=== PATIENT | female | born 1940 | race Caucasian/White ===

== ENCOUNTER 2020-04-17 09:51 | Inpatient (IN) ==
[2020-04-17] MEDS ORDERED: Furosemide 40 MG/4 ML VIAL IVP ONE (10:10)
[2020-04-17 10:34] LABS: Basophils # 0.1 K/mcL (0.0-0.2); Basophils % 0.6 %; Eosinophils # 0.1 K/mcL (0.0-0.6); Eosinophils % 0.8 %; Hematocrit 32.6 % (35.3-44.9); Hemoglobin 9.7 g/dL (11.5-15.4); Immature Granulocytes % 0.4 % (0-4); Lymphocytes # 2.6 K/mcL (0.6-4.6); Lymphocytes % 32.8 %; Mean Corpuscular HGB Conc 29.8 g/dL (31.6-35.5); Mean Corpuscular Hemoglobin 26.9 pg (28.0-33.3); Mean Corpuscular Volume 90.3 fL (83.0-100.0); Mean Platelet Volume 10.7 fL (9.4-12.4); Monocytes # 0.8 K/mcL (0.0-1.3); Monocytes % 9.9 %; Neutrophils # 4.3 K/mcL (1.6-8.9); Nucleated Red Blood Cells 0.3 /100 WBC (0); Platelet Count 271 K/mcL (140-400); Red Blood Count 3.61 M/mcL (3.82-4.97); Segmented Neutrophils % 55.5 %; White Blood Count 7.8 K/mcL (4.3-11.1)
[2020-04-17 10:50] LABS: BUN/Creatinine Ratio 25 (6-26); Blood Urea Nitrogen 29 mg/dL (8-23); Calcium 9.9 mg/dL (8.6-10.3); Carbon Dioxide 19 mEq/L (23-29); Chloride 101 mEq/L (98-107); Glucose 164 mg/dL (70-105); Osmolality,Calculated 283 (280-300); Sodium 132 mEq/L (136-145); eGFR For African Americans 54 (> 60); eGFR For Non-African Americans 44 (> 60)
[2020-04-17 10:51] LABS: Troponin I < 0.03 ng/mL (< 0.04)
[2020-04-17 11:19] LABS: Magnesium 1.8 mg/dL (1.6-2.6)
[2020-04-17 11:25] LABS: Adenovirus Not Detected (Not Detect); Coronavirus 229E Not Detected (Not Detect); Coronavirus HKU1 Not Detected (Not Detect); Coronavirus NL63 Not Detected (Not Detect); Coronavirus OC43 Not Detected (Not Detect); Human Metapneumovirus Not Detected (Not Detect); Human Rhinovirus/Enterovirus Not Detected (Not Detect); SARS-CoV-2 Not Detected (Not Detect)
[2020-04-17 11:26] LABS: Bordetella Pertussis Not Detected (Not Detect); Chlamydophila pneumoniae Not Detected (Not Detect); Influenza A Subtype 2009 H1 Not Detected (Not Detect); Influenza B Not Detected (Not Detect); Mycoplasma pneumoniae Not Detected (Not Detect); Parainfluenza Virus 1 Not Detected (Not Detect); Parainfluenza Virus 2 Not Detected (Not Detect); Parainfluenza Virus 3 Not Detected (Not Detect); Parainfluenza Virus 4 Not Detected (Not Detect); Respiratory Syncytial Virus Not Detected (Not Detect)
[2020-04-17] MEDS ORDERED: *HR* Dextrose 50 % in Water (Vial) 50 ML VIAL IVP PRN (11:56)
[2020-04-17] MEDS ORDERED: Naloxone 0.4 MG/ML INJ IVP PRN (11:56)
[2020-04-17] MEDS ORDERED: Dextrose Gel 15 GM/37.5 ML TUBE PO PRN ×2 (11:56)
[2020-04-17] MEDS ORDERED: D5% in Water 1,000 ML IVC PRN (11:56)
[2020-04-17] MEDS ORDERED: Perflutren Lipid Microsphere 1.3 ML in 0.9 % Sodium Chloride 8.7 ML IVP PRN (12:11)
[2020-04-17 12:45] LABS: Albumin 3.9 g/dL (3.5-5.7); Albumin/Globulin Ratio 1.1 (1.1-2.2); Bilirubin,Direct 0.2 mg/dL (0.0-0.2); Bilirubin,Indirect 0.4 mg/dL (0.0-1.0); Bilirubin,Total 0.6 mg/dL (0.3-1.0); Chol/HDL Ratio 3.9 (0-4.9); Globulin 3.5 g/dL (2.4-3.5); Total Protein 7.4 g/dL (6.4-8.9)
[2020-04-17 12:45] LABS: INR 1.1; Prothrombin Time 12.3 Seconds (9.4-12.1)
[2020-04-17 12:57] LABS: Thyroid Stimulating Hormone 1.117 mcIU/mL (0.340-5.600)
[2020-04-17] MEDS: Insulin LISPRO 300 UNITS/3 ML VIAL SQ SCH ×3 (14:15→19:23)
[2020-04-17 15:23] LABS: Estimated Average Glucose 137 mg/dl
[2020-04-17 16:43] LABS: Bacteria,Urine Few per hpf (None-Few); Bilirubin,Urine Negative (Negative); Blood,Urine Negative (Negative); Clarity,Urine Clear (Clear); Color,Urine Colorless (Yellow); Glucose,Urine (UA) Normal (Normal); Ketones,Urine Negative (Negative); Leukocyte Esterase,Urine Trace (Negative); Mucus,Urine Few per lpf (None-Few); Nitrite,Urine Negative (Negative); PH,Urine 5.5 pH Units (5.0-8.0); Protein,Urine Negative (Neg-Trace); RBC,Urine 0-3 per hpf (0-3); Specific Gravity,Urine 1.008 (1.010-1.025); Squamous Epithelial Cell,Urine Few per hpf (None-Few); Urobilinogen,Urine Normal (Normal)
[2020-04-17] MEDS: *HR* Heparin 5,000 UNIT/ML VIAL SQ SCH ×2 (16:45→19:30)
[2020-04-18 02:55] LABS: Hematocrit 28.8 % (35.3-44.9); Hemoglobin 8.7 g/dL (11.5-15.4); Mean Corpuscular HGB Conc 30.2 g/dL (31.6-35.5); Mean Corpuscular Hemoglobin 27.4 pg (28.0-33.3); Mean Corpuscular Volume 90.9 fL (83.0-100.0); Mean Platelet Volume 10.7 fL (9.4-12.4); Platelet Count 203 K/mcL (140-400); Red Blood Count 3.17 M/mcL (3.82-4.97); Red Cell Distribution Width 21.8 % (11.5-14.5); White Blood Count 6.2 K/mcL (4.3-11.1)
[2020-04-18 03:10] LABS: BUN/Creatinine Ratio 26 (6-26); Blood Urea Nitrogen 26 mg/dL (8-23); Calcium 9.3 mg/dL (8.6-10.3); Carbon Dioxide 22 mEq/L (23-29); Chloride 103 mEq/L (98-107); Glucose 97 mg/dL (70-105); Magnesium 1.6 mg/dL (1.6-2.6); Osmolality,Calculated 285 (280-300); Phosphorous 3.9 mg/dL (2.7-4.5); Potassium 4.4 mEq/L (3.5-5.1); Sodium 135 mEq/L (136-145); eGFR For African Americans > 60 (> 60); eGFR For Non-African Americans 53 (> 60)
[2020-04-18] MEDS: *HR* Heparin 5,000 UNIT/ML VIAL SQ SCH ×3 (04:58→20:43)
[2020-04-18] MEDS: Furosemide 40 MG/4 ML VIAL IVP SCH ×2 (07:32→16:29)
[2020-04-18] MEDS: Insulin LISPRO 300 UNITS/3 ML VIAL SQ SCH ×4 (07:33→20:34)
[2020-04-18] MEDS ORDERED: GI Cocktail 40 ML EACH PO ONE (15:16)
[2020-04-18] MEDS: Sucralfate 1 GM TABLET PO SCH ×2 (16:29→20:43)
[2020-04-19] MEDS ORDERED: *HR* Metoprolol 5 MG/5 ML VIAL IVP ONE (03:27)
[2020-04-19 03:50] LABS: Hematocrit 29.5 % (35.3-44.9); Mean Corpuscular HGB Conc 30.5 g/dL (31.6-35.5); Mean Corpuscular Hemoglobin 27.2 pg (28.0-33.3); Mean Corpuscular Volume 89.1 fL (83.0-100.0); Mean Platelet Volume 10.7 fL (9.4-12.4); Platelet Count 202 K/mcL (140-400); Red Blood Count 3.31 M/mcL (3.82-4.97); Red Cell Distribution Width 21.7 % (11.5-14.5)
[2020-04-19 03:56] LABS: BUN/Creatinine Ratio 21 (6-26); Blood Urea Nitrogen 17 mg/dL (8-23); Calcium 9.5 mg/dL (8.6-10.3); Carbon Dioxide 27 mEq/L (23-29); Chloride 99 mEq/L (98-107); Glucose 133 mg/dL (70-105); Magnesium 1.4 mg/dL (1.6-2.6); Osmolality,Calculated 285 (280-300); Potassium 3.9 mEq/L (3.5-5.1); Sodium 136 mEq/L (136-145); eGFR For African Americans > 60 (> 60); eGFR For Non-African Americans > 60 (> 60)
[2020-04-19] MEDS: *HR* Heparin 5,000 UNIT/ML VIAL SQ SCH ×3 (05:29→20:57)
[2020-04-19] MEDS: Sucralfate 1 GM TABLET PO SCH ×5 (08:25→20:56)
[2020-04-19] MEDS: Aspirin Enteric Coated 81 MG Tablet PO SCH (08:26)
[2020-04-19] MEDS: Cyanocobalamin (B-12) 1,000 MCG TABLET PO SCH (08:26)
[2020-04-19] MEDS: Pyridoxine (B-6) 50 MG TABLET PO SCH (08:26)
[2020-04-19] MEDS: Ascorbic Acid 500 MG TABLET PO SCH (08:26)
[2020-04-19] MEDS: Magnesium Oxide 400 MG TABLET PO SCH (08:26)
[2020-04-19] MEDS: Insulin LISPRO 300 UNITS/3 ML VIAL SQ SCH ×4 (08:26→20:53)
[2020-04-19] MEDS: atenoloL 50 MG TABLET PO SCH (08:26)
[2020-04-19] MEDS: Furosemide 40 MG/4 ML VIAL IVP SCH ×2 (08:27→16:33)
[2020-04-19] MEDS ORDERED: ATENOLOL PO SCH (09:00)
[2020-04-19] MEDS ORDERED: NON-FORMULARY MEDICATION 1 EACH EACH (Pantoprazole Sodium [Protonix] 40 MG) PO SCH (09:00)
[2020-04-19] MEDS ORDERED: [UNRECOGNIZED DRUG - OTHER] PO SCH (09:00)
[2020-04-19] MEDS ORDERED: CHLORTHALIDONE PO SCH (09:00)
[2020-04-20 01:16] LABS: Hematocrit 29.5 % (35.3-44.9); Mean Corpuscular HGB Conc 30.5 g/dL (31.6-35.5); Mean Corpuscular Volume 88.6 fL (83.0-100.0); Mean Platelet Volume 10.5 fL (9.4-12.4); Platelet Count 226 K/mcL (140-400); Red Blood Count 3.33 M/mcL (3.82-4.97); Red Cell Distribution Width 21.5 % (11.5-14.5); White Blood Count 7.4 K/mcL (4.3-11.1)
[2020-04-20 01:43] LABS: BUN/Creatinine Ratio 19 (6-26); Blood Urea Nitrogen 20 mg/dL (8-23); Calcium 9.3 mg/dL (8.6-10.3); Carbon Dioxide 25 mEq/L (23-29); Chloride 97 mEq/L (98-107); Glucose 180 mg/dL (70-105); Osmolality,Calculated 285 (280-300); Sodium 134 mEq/L (136-145); eGFR For African Americans > 60 (> 60); eGFR For Non-African Americans 51 (> 60)
[2020-04-20] MEDS: *HR* Heparin 5,000 UNIT/ML VIAL SQ SCH (05:38)
[2020-04-20] MEDS: Pyridoxine (B-6) 50 MG TABLET PO SCH (08:12)
[2020-04-20] MEDS: Aspirin Enteric Coated 81 MG Tablet PO SCH (08:12)
[2020-04-20] MEDS: Sucralfate 1 GM TABLET PO SCH ×2 (08:12→11:26)
[2020-04-20] MEDS: atenoloL 50 MG TABLET PO SCH (08:13)
[2020-04-20] MEDS: Ascorbic Acid 500 MG TABLET PO SCH (08:13)
[2020-04-20] MEDS: Furosemide 40 MG/4 ML VIAL IVP SCH (08:13)
[2020-04-20] MEDS: Cyanocobalamin (B-12) 1,000 MCG TABLET PO SCH (08:13)
[2020-04-20] MEDS: Magnesium Oxide 400 MG TABLET PO SCH (08:13)
[2020-04-20] MEDS: Insulin LISPRO 300 UNITS/3 ML VIAL SQ SCH ×2 (08:14→11:26)
[2020-04-20] MEDS ORDERED: FLU Vac QV 20-21 (6Month+)/PF 0.5 ML SYRINGE IM ONE (15:16)
[2020-04-20 15:17] VITALS: BP 124/81
== END 2020-04-20 17:31 | disposition home or self-care (01) | DRG 291 ==
LOC: EMEROOARM 09:51 → 3BNU 09:51 → SUATTDRO 11:57 → 2ANU 12:32 → SUATTDRO 04-18 15:57
PROVIDERS: ADMIT Student in an Organized Health Care Education/Training Program; ATTEND Internal Medicine

== ENCOUNTER 2020-04-26 19:14 | Inpatient (IN) ==
[~2020-04-26 19:14] MED LIST: *HR* Atropine Sulfate 1 MG/10 ML SYRINGE IV ONE; Norepinephrine 4 MG/254 ML IV.SOLN IVC ONE
[2020-04-26] MEDS ORDERED: 0.9 % Sodium Chloride 1,000 ML IVC ONE ×2 (19:41→19:50)
[2020-04-26 20:09] LABS: Eosinophils % 0.2 %; Immature Granulocytes % 0.4 % (0-4); Segmented Neutrophils % 74.5 %
[2020-04-26 20:10] LABS: Basophils % 0.1 %; Hemoglobin 9.7 g/dL (11.5-15.4); Lymphocytes % 16.8 %; Mean Corpuscular HGB Conc 29.4 g/dL (31.6-35.5); Mean Corpuscular Hemoglobin 27.3 pg (28.0-33.3); Mean Platelet Volume 10.7 fL (9.4-12.4); Monocytes # 0.9 K/mcL (0.0-1.3); Neutrophils # 8.2 K/mcL (1.6-8.9); Platelet Count 295 K/mcL (140-400); Red Blood Count 3.55 M/mcL (3.82-4.97); Red Cell Distribution Width 20.7 % (11.5-14.5)
[2020-04-26 20:13] LABS: Lymphocytes # 1.9 K/mcL (0.6-4.6)
[2020-04-26] MEDS ORDERED: Piperacillin/Tazobactam 3.375 GM in Water for inj. (sterile) 20 ML IVP ONE (20:25)
[2020-04-26] MEDS ORDERED: Vancomycin 1,500 MG/265 ML IV.SOLN IVPB ONE (20:25)
[2020-04-26 20:36] LABS: Calcium 9.6 mg/dL (8.6-10.3); Magnesium 2.5 mg/dL (1.6-2.6); Potassium 6.7 mEq/L (3.5-5.1); Troponin I 0.04 ng/mL (< 0.04)
[2020-04-26] MEDS ORDERED: Hydrocortisone Sodium Succ 100 MG/2 ML VIAL IVP ONE (20:36)
[2020-04-26] MEDS ORDERED: *HR* Dextrose 50 % in Water (Vial) 50 ML VIAL IVP ONE (20:39)
[2020-04-26] MEDS ORDERED: Insulin Human Regular 10 UNIT in 0.9 % Sodium Chloride 10 ML IV ONE (20:39)
[2020-04-26] MEDS ORDERED: Calcium Chloride 1,000 MG in 0.9 % Sodium Chloride 100 ML IVPB ONE (20:39)
[2020-04-26] MEDS ORDERED: Albuterol 2.5 MG/3 ML NEBULIZER IH ONE (20:40)
[2020-04-26 20:43] LABS: Thyroid Stimulating Hormone 0.34 mcIU/mL (0.340-5.600)
[2020-04-26] MEDS ORDERED: Calcium Gluconate 1gm/50mL 1 GM/50 ML BAG IVPB ONE ×2 (20:46→21:05)
[2020-04-26 20:49] LABS: Hypochromasia Present (Not Present); Microcytosis Present (Not Present); Ovalocytes 1+ (Not Present); Platelet Estimate Normal (Normal); Polychromasia 1+ (Not Present)
[2020-04-26 21:07] LABS: Bilirubin,Urine Negative (Negative); Blood,Urine Moderate (Negative); Clarity,Urine Turbid (Clear); Color,Urine Yellow (Yellow); Glucose,Urine (UA) Normal (Normal); Ketones,Urine Trace mg/dL (Negative); Leukocyte Esterase,Urine Large (Negative); Nitrite,Urine Negative (Negative); PH,Urine 6.5 pH Units (5.0-8.0); Protein,Urine >=300 mg/dL (Neg-Trace); Specific Gravity,Urine 1.025 (1.010-1.025); Urobilinogen,Urine Normal (Normal)
[2020-04-26 21:10] LABS: Bacteria,Urine Present per hpf (None-Few); Hyaline Casts,Urine None Seen per lpf (None Seen); Mucus,Urine Present per lpf (None-Few); RBC,Urine Present per hpf (0-3); Squamous Epithelial Cell,Urine Present per hpf (None-Few); WBC,Urine TNTC per hpf (0-3)
[2020-04-26 23:29] LABS: Sodium, Urine 89.2 mEq/L
[2020-04-26] MEDS ORDERED: Naloxone 0.4 MG/ML INJ IVP PRN (23:39)
[2020-04-27] MEDS ORDERED: 0.9 % Sodium Chloride 1,000 ML ONE (00:14)
[2020-04-27] MEDS ORDERED: *HR* Midazolam HCl 5 MG/5 ML VIAL IVP ONE ×4 (02:35→05:34)
[2020-04-27 02:39] LABS: Calcium 8.9 mg/dL (8.6-10.3); Potassium 6.4 mEq/L (3.5-5.1); Troponin I 0.03 ng/mL (< 0.04); Uric Acid 13.9 mg/dL (2.3-7.6)
[2020-04-27] MEDS: FentaNYL (PF) 1,000 MCG/100 ML IV.SOLN IVC SCH ×2 (03:08→19:15)
[2020-04-27] MEDS ORDERED: Artificial Tears SOLN 15 ML BOTTLE BOTH EYES PRN (03:38)
[2020-04-27 03:58] LABS: ABG Base Excess -13 mEq/L (-2 to 3); ABG HCO3 15 mEq/L (21-27); ABG Oxygen Saturation 97 % (95-98); ABG PCO2 47 mmHg (35-45); ABG PH 7.12 pH Units (7.32-7.45); ABG PO2 116 mmHg (85-104); ABG TCO2 17 mEq/L (20-26); Blood Gas Modality ASSIST CONTROL; Blood Gas VT 450 cc
[2020-04-27] MEDS ORDERED: Sodium Bicarbonate 150 MEQ in D5% in Water 1,000 ML IVC SCH (04:00)
[2020-04-27] MEDS: Artificial Tears SOLN 15 ML BOTTLE BOTH EYES SCH ×6 (04:30→23:07)
[2020-04-27 04:33] LABS: INR 1.1; Prothrombin Time 12.9 Seconds (9.4-12.1)
[2020-04-27 04:35] LABS: Activated Partial Thrombo Time 29.8 Seconds (26.0-36.0); Albumin 3.6 g/dL (3.5-5.7); Albumin/Globulin Ratio 1.1 (1.1-2.2); Bilirubin,Total 0.6 mg/dL (0.3-1.0); Calcium 9.4 mg/dL (8.6-10.3); Globulin 3.2 g/dL (2.4-3.5); Magnesium 2.5 mg/dL (1.6-2.6); Phosphorous 8.5 mg/dL (2.7-4.5); Potassium 6.6 mEq/L (3.5-5.1); Total Protein 6.8 g/dL (6.4-8.9)
[2020-04-27] MEDS: Sodium Bicarbonate 150 MEQ in D5% in Water 1,000 ML IVC SCH ×3 (04:44→19:17)
[2020-04-27] MEDS ORDERED: Calcium Chloride 2,000 MG in 0.9 % Sodium Chloride 100 ML IVPB ONE (04:47)
[2020-04-27] MEDS ORDERED: Calcium Chloride 1,000 MG in 0.9 % Sodium Chloride 100 ML IVPB ONE (04:47)
[2020-04-27] MEDS: Pantoprazole 40 MG VIAL IVP SCH (05:19)
[2020-04-27] MEDS ORDERED: 0.9 % Sodium Chloride 500 ML ONE (05:20)
[2020-04-27] MEDS ORDERED: *HR* Heparin 5,000 UNIT/ML VIAL ONE ×2 (05:30→14:33)
[2020-04-27 06:29] LABS: Basophils % 0.1 %; Eosinophils % 0.1 %; Hematocrit 32.8 % (35.3-44.9); Hemoglobin 9.5 g/dL (11.5-15.4); Immature Granulocytes % 0.5 % (0-4); Lymphocytes % 5.7 %; Mean Corpuscular Hemoglobin 27.4 pg (28.0-33.3); Mean Corpuscular Volume 94.5 fL (83.0-100.0); Mean Platelet Volume 11.2 fL (9.4-12.4); Monocytes # 1.4 K/mcL (0.0-1.3); Monocytes % 8.1 %; Neutrophils # 14.3 K/mcL (1.6-8.9); Platelet Count 282 K/mcL (140-400); Red Blood Count 3.47 M/mcL (3.82-4.97); Red Cell Distribution Width 20.9 % (11.5-14.5); Segmented Neutrophils % 85.5 %
[2020-04-27 06:30] LABS: White Blood Count 16.7 K/mcL (4.3-11.1)
[2020-04-27] MEDS: Norepinephrine 4 MG/254 ML IV.SOLN IVC SCH ×4 (06:38→23:43)
[2020-04-27 07:04] LABS: Potassium 6.6 mEq/L (3.5-5.1)
[2020-04-27] MEDS ORDERED: Calcium Gluconate 1gm/50mL 1 GM/50 ML BAG IVPB PRN (07:08)
[2020-04-27] MEDS: PrismaSATE BGK 4/2.5 5,000 ML CRRT SCH ×6 (08:15→19:39)
[2020-04-27] MEDS: Piperacillin/Tazobactam 3.375 GM in 0.9 % Sodium Chloride Mini Bag 100 ML IVPB SCH ×3 (08:15→23:07)
[2020-04-27] MEDS: Chlorhexidine Rinse 15 ML MOUTHWASH MM SCH ×2 (08:16→20:08)
[2020-04-27] MEDS: Calcium Chloride 4,000 MG in 0.9 % Sodium Chloride 1,000 ML CRRT SCH (08:17)
[2020-04-27 08:19] LABS: ABG Base Excess -19 mEq/L (-2 to 3); ABG HCO3 9 mEq/L (21-27); ABG Oxygen Saturation 97 % (95-98); ABG PCO2 27 mmHg (35-45); ABG PH 7.12 pH Units (7.32-7.45); ABG PO2 120 mmHg (85-104); ABG TCO2 10 mEq/L (20-26); Blood Gas Modality ASSIST CONTROL; Blood Gas VT 450 cc
[2020-04-27] MEDS: 0.9 % Sodium Chloride 1,000 ML PRIME SCH ×11 (08:19→23:06)
[2020-04-27 08:44] LABS: VBG Ionized Calcium 1.12 mmol/L (1.15-1.35)
[2020-04-27] MEDS ORDERED: Dextrose Gel 15 GM/37.5 ML TUBE PO PRN ×2 (09:41)
[2020-04-27] MEDS ORDERED: D5% in Water 1,000 ML IVC PRN (09:41)
[2020-04-27] MEDS: Insulin LISPRO 300 UNITS/3 ML VIAL SQ SCH ×2 (10:16→11:51)
[2020-04-27 11:29] LABS: VBG Ionized Calcium 1.03 mmol/L (1.15-1.35)
[2020-04-27] MEDS: Insulin Human Regular 100 UNIT in 0.9 % Sodium Chloride 100 ML IVC SCH ×2 (12:56→23:06)
[2020-04-27 13:25] LABS: VBG Ionized Calcium 0.95 mmol/L (1.15-1.35)
[2020-04-27] MEDS: Calcium Gluconate 1gm/50mL 1 GM/50 ML BAG IVPB PRN ×2 (13:34→15:49)
[2020-04-27] MEDS ORDERED: *HR* Etomidate 20 MG/10 ML AMPUL IVP ONE (14:43)
[2020-04-27 15:36] LABS: VBG Ionized Calcium 0.98 mmol/L (1.15-1.35)
[2020-04-27 15:55] LABS: Calcium 9.4 mg/dL (8.6-10.3); Magnesium 2.1 mg/dL (1.6-2.6); Phosphorous 5.8 mg/dL (2.7-4.5); Potassium 4.9 mEq/L (3.5-5.1)
[2020-04-27 17:33] LABS: VBG Ionized Calcium 1.01 mmol/L (1.15-1.35)
[2020-04-27] MEDS: *HR* Heparin 5,000 UNIT/ML VIAL SQ SCH (17:35)
[2020-04-27 19:44] LABS: VBG Ionized Calcium 1.05 mmol/L (1.15-1.35)
[2020-04-27 19:45] LABS: ABG Base Excess -9 mEq/L (-2 to 3); ABG HCO3 17 mEq/L (21-27); ABG Oxygen Saturation 95 % (95-98); ABG PCO2 35 mmHg (35-45); ABG PO2 80 mmHg (85-104); ABG TCO2 18 mEq/L (20-26); Blood Gas VT 450 cc
[2020-04-27 19:56] LABS: Calcium 9.4 mg/dL (8.6-10.3); Potassium 4.5 mEq/L (3.5-5.1)
[2020-04-27 20:27] LABS: Phosphorous 4.2 mg/dL (2.7-4.5)
[2020-04-27 21:10] LABS: VBG Ionized Calcium 1.02 mmol/L (1.15-1.35)
[2020-04-27 21:27] LABS: Calcium 9.3 mg/dL (8.6-10.3); Potassium 4.4 mEq/L (3.5-5.1)
[2020-04-27] MEDS: Vasopressin 40 UNIT in D5% in Water 100 ML IVC SCH (21:28)
[2020-04-27 21:37] LABS: Troponin I 0.25 ng/mL (< 0.04)
[2020-04-27 23:10] LABS: VBG Ionized Calcium 1.07 mmol/L (1.15-1.35)
[2020-04-28] MEDS: 0.9 % Sodium Chloride 1,000 ML PRIME SCH ×12 (00:11→22:13)
[2020-04-28] MEDS: Sodium Bicarbonate 150 MEQ in D5% in Water 1,000 ML IVC SCH ×2 (00:51→06:16)
[2020-04-28 00:55] LABS: VBG Ionized Calcium 1.05 mmol/L (1.15-1.35)
[2020-04-28] MEDS: Calcium Chloride 4,000 MG in 0.9 % Sodium Chloride 1,000 ML CRRT SCH ×3 (01:01→22:13)
[2020-04-28] MEDS: Norepinephrine 4 MG/254 ML IV.SOLN IVC SCH ×5 (02:43→20:41)
[2020-04-28 03:02] LABS: VBG Ionized Calcium 1.08 mmol/L (1.15-1.35)
[2020-04-28] MEDS: Artificial Tears SOLN 15 ML BOTTLE BOTH EYES SCH ×6 (04:09→23:58)
[2020-04-28] MEDS: PrismaSATE BGK 4/2.5 5,000 ML CRRT SCH ×10 (04:11→22:15)
[2020-04-28 04:44] LABS: ABG Base Excess 1 mEq/L (-2 to 3); ABG HCO3 26 mEq/L (21-27); ABG Oxygen Saturation 97 % (95-98); ABG PCO2 45 mmHg (35-45); ABG PH 7.37 pH Units (7.32-7.45); ABG PO2 98 mmHg (85-104); ABG TCO2 28 mEq/L (20-26); Blood Gas VT 450 cc
[2020-04-28 04:56] LABS: ABG Ionized Calcium 1.06 mmol/L (1.15-1.35)
[2020-04-28 05:06] LABS: Albumin 3.1 g/dL (3.5-5.7); Albumin/Globulin Ratio 1.2 (1.1-2.2); Bilirubin,Total 0.4 mg/dL (0.3-1.0); Calcium 9.3 mg/dL (8.6-10.3); Globulin 2.6 g/dL (2.4-3.5); Magnesium 1.7 mg/dL (1.6-2.6); Potassium 4.2 mEq/L (3.5-5.1); Total Protein 5.7 g/dL (6.4-8.9)
[2020-04-28] MEDS ORDERED: Ipratropium/Albuterol Neb 3 ML ONE (06:05)
[2020-04-28 06:07] LABS: ABG Ionized Calcium 1.02 mmol/L (1.15-1.35)
[2020-04-28] MEDS: *HR* Heparin 5,000 UNIT/ML VIAL SQ SCH ×2 (06:13→17:41)
[2020-04-28] MEDS: Pantoprazole 40 MG VIAL IVP SCH (06:14)
[2020-04-28 06:22] LABS: Basophils % 0.1 %; Eosinophils % 0.1 %; Hematocrit 27.7 % (35.3-44.9); Hemoglobin 8.6 g/dL (11.5-15.4); Immature Granulocytes % 0.7 % (0-4); Lymphocytes # 1.3 K/mcL (0.6-4.6); Lymphocytes % 8.2 %; Mean Corpuscular Volume 86.8 fL (83.0-100.0); Mean Platelet Volume 10.5 fL (9.4-12.4); Monocytes # 1.6 K/mcL (0.0-1.3); Monocytes % 10.4 %; Neutrophils # 12.3 K/mcL (1.6-8.9); Nucleated Red Blood Cells 0.1 /100 WBC (0); Platelet Count 159 K/mcL (140-400); Red Blood Count 3.19 M/mcL (3.82-4.97); Red Cell Distribution Width 19.8 % (11.5-14.5); Segmented Neutrophils % 80.5 %; White Blood Count 15.3 K/mcL (4.3-11.1)
[2020-04-28] MEDS ORDERED: Ipratropium/Albuterol Neb 3 ML IH PRN (06:29)
[2020-04-28] MEDS ORDERED: Perflutren Lipid Microsphere 1.3 ML in 0.9 % Sodium Chloride 8.7 ML IVP PRN (08:03)
[2020-04-28] MEDS: Chlorhexidine Rinse 15 ML MOUTHWASH MM SCH ×2 (08:23→20:43)
[2020-04-28] MEDS: Piperacillin/Tazobactam 3.375 GM in 0.9 % Sodium Chloride Mini Bag 100 ML IVPB SCH ×3 (08:23→23:56)
[2020-04-28 08:25] LABS: VBG Ionized Calcium 1.07 mmol/L (1.15-1.35)
[2020-04-28] MEDS: FentaNYL (PF) 1,000 MCG/100 ML IV.SOLN IVC SCH ×2 (09:16→20:39)
[2020-04-28 10:25] LABS: VBG Ionized Calcium 1.09 mmol/L (1.15-1.35)
[2020-04-28 12:20] LABS: VBG Ionized Calcium 1.14 mmol/L (1.15-1.35)
[2020-04-28] MEDS: Vasopressin 40 UNIT in D5% in Water 100 ML IVC SCH (17:46)
[2020-04-28] MEDS: Insulin Human Regular 100 UNIT in 0.9 % Sodium Chloride 100 ML IVC SCH (18:10)
[2020-04-28] MEDS ORDERED: *HR* Midazolam HCl 2 MG/2 ML VIAL IVP ONE (23:18)
[2020-04-29 00:08] LABS: VBG Ionized Calcium 1.24 mmol/L (1.15-1.35)
[2020-04-29] MEDS: Norepinephrine 4 MG/254 ML IV.SOLN IVC SCH ×6 (01:04→23:58)
[2020-04-29] MEDS: 0.9 % Sodium Chloride 1,000 ML PRIME SCH ×7 (02:34→23:10)
[2020-04-29] MEDS: PrismaSATE BGK 4/2.5 5,000 ML CRRT SCH ×10 (03:16→23:08)
[2020-04-29 04:39] LABS: Eosinophils % 0.1 %; Hematocrit 27.3 % (35.3-44.9); Immature Granulocytes % 0.6 % (0-4); Mean Corpuscular Volume 89.8 fL (83.0-100.0); Red Blood Count 3.04 M/mcL (3.82-4.97); Red Cell Distribution Width 20.7 % (11.5-14.5)
[2020-04-29 04:41] LABS: Basophils % 0.2 %; Hemoglobin 8.1 g/dL (11.5-15.4); Immature Platelets 7.5 % (1.1-6.1); Lymphocytes # 0.9 K/mcL (0.6-4.6); Lymphocytes % 5.2 %; Mean Corpuscular HGB Conc 29.7 g/dL (31.6-35.5); Mean Corpuscular Hemoglobin 26.6 pg (28.0-33.3); Mean Platelet Volume 10.7 fL (9.4-12.4); Monocytes # 1.6 K/mcL (0.0-1.3); Monocytes % 9.3 %; Neutrophils # 14.5 K/mcL (1.6-8.9); Nucleated Red Blood Cells 0.2 /100 WBC (0); Platelet Count 123 K/mcL (140-400); Segmented Neutrophils % 84.6 %; White Blood Count 17.1 K/mcL (4.3-11.1)
[2020-04-29 04:55] LABS: Albumin 2.9 g/dL (3.5-5.7); Albumin/Globulin Ratio 1.1 (1.1-2.2); Bilirubin,Total 0.5 mg/dL (0.3-1.0); Calcium 10.8 mg/dL (8.6-10.3); Globulin 2.7 g/dL (2.4-3.5); Potassium 3.9 mEq/L (3.5-5.1); Total Protein 5.6 g/dL (6.4-8.9)
[2020-04-29] MEDS: Artificial Tears SOLN 15 ML BOTTLE BOTH EYES SCH ×5 (05:00→20:39)
[2020-04-29] MEDS: FentaNYL (PF) 1,000 MCG/100 ML IV.SOLN IVC SCH ×2 (05:10→15:30)
[2020-04-29 05:13] LABS: ABG Base Excess 2 mEq/L (-2 to 3); ABG HCO3 30 mEq/L (21-27); ABG Oxygen Saturation 88 % (95-98); ABG PCO2 63 mmHg (35-45); ABG PH 7.28 pH Units (7.32-7.45); ABG PO2 64 mmHg (85-104); ABG TCO2 32 mEq/L (20-26); Blood Gas VT 450 cc
[2020-04-29 05:20] LABS: Anisocytosis 2+ (Not Present); Macrocytosis Present (Not Present); Microcytosis Present (Not Present); Platelet Estimate Normal (Normal)
[2020-04-29] MEDS: Calcium Chloride 4,000 MG in 0.9 % Sodium Chloride 1,000 ML CRRT SCH ×3 (05:54→22:25)
[2020-04-29] MEDS: *HR* Heparin 5,000 UNIT/ML VIAL SQ SCH ×2 (05:56→17:35)
[2020-04-29] MEDS: Pantoprazole 40 MG VIAL IVP SCH (05:56)
[2020-04-29 06:01] LABS: Magnesium 1.9 mg/dL (1.6-2.6)
[2020-04-29 06:08] LABS: VBG Ionized Calcium 1.31 mmol/L (1.15-1.35)
[2020-04-29] MEDS ORDERED: *HR* Dextrose 50 % in Water (Vial) 50 ML VIAL IVP PRN (07:29)
[2020-04-29] MEDS ORDERED: Dextrose Gel 15 GM/37.5 ML TUBE PO PRN ×2 (07:29)
[2020-04-29] MEDS ORDERED: D5% in Water 1,000 ML IVC PRN (07:29)
[2020-04-29] MEDS: Piperacillin/Tazobactam 3.375 GM in 0.9 % Sodium Chloride Mini Bag 100 ML IVPB SCH (07:47)
[2020-04-29] MEDS: Chlorhexidine Rinse 15 ML MOUTHWASH MM SCH ×2 (07:50→20:39)
[2020-04-29] MEDS ORDERED: Insulin LISPRO 300 UNITS/3 ML VIAL SQ SCH (12:00)
[2020-04-29 12:39] LABS: VBG Ionized Calcium 1.34 mmol/L (1.15-1.35)
[2020-04-29 12:52] LABS: Calcium 10.8 mg/dL (8.6-10.3); Magnesium 2.1 mg/dL (1.6-2.6); Phosphorous 1.8 mg/dL (2.7-4.5); Potassium 3.9 mEq/L (3.5-5.1)
[2020-04-29 14:33] LABS: VBG Ionized Calcium 1.35 mmol/L (1.15-1.35)
[2020-04-29 16:30] LABS: VBG Ionized Calcium 1.41 mmol/L (1.15-1.35)
[2020-04-29] MEDS: Vasopressin 40 UNIT in D5% in Water 100 ML IVC SCH (17:23)
[2020-04-29 18:10] LABS: VBG Ionized Calcium 1.36 mmol/L (1.15-1.35)
[2020-04-29] MEDS: *HR* Dextrose 50 % in Water (Vial) 50 ML VIAL IVP PRN ×2 (19:15→20:40)
[2020-04-29 20:14] LABS: VBG Ionized Calcium 1.35 mmol/L (1.15-1.35)
[2020-04-29 22:18] LABS: VBG Ionized Calcium 1.33 mmol/L (1.15-1.35)
[2020-04-30] MEDS: Artificial Tears SOLN 15 ML BOTTLE BOTH EYES SCH ×7 (01:21→23:56)
[2020-04-30] MEDS: FentaNYL (PF) 1,000 MCG/100 ML IV.SOLN IVC SCH ×3 (02:18→20:36)
[2020-04-30 03:29] LABS: Basophils % 0.2 %; Hematocrit 24.9 % (35.3-44.9); Mean Corpuscular Volume 88.3 fL (83.0-100.0); Monocytes % 9.3 %; Red Blood Count 2.82 M/mcL (3.82-4.97); Red Cell Distribution Width 20.6 % (11.5-14.5)
[2020-04-30 03:31] LABS: Eosinophils # 0.1 K/mcL (0.0-0.6); Eosinophils % 0.5 %; Hemoglobin 7.5 g/dL (11.5-15.4); Immature Granulocytes % 0.8 % (0-4); Lymphocytes % 9.6 %; Mean Corpuscular HGB Conc 30.1 g/dL (31.6-35.5); Mean Corpuscular Hemoglobin 26.6 pg (28.0-33.3); Mean Platelet Volume 11.1 fL (9.4-12.4); Monocytes # 1.2 K/mcL (0.0-1.3); Segmented Neutrophils % 79.6 %
[2020-04-30 03:33] LABS: Lymphocytes # 1.3 K/mcL (0.6-4.6); Neutrophils # 10.4 K/mcL (1.6-8.9); Platelet Count 96 K/mcL (140-400)
[2020-04-30 03:46] LABS: Alanine Aminotransferase 21 Units/L (7-52); Albumin 2.5 g/dL (3.5-5.7); Alkaline Phosphatase 90 Units/L (34-104); Aspartate Amino Transferase 37 Units/L (13-39); BUN/Creatinine Ratio 8 (6-26); Bilirubin,Total 0.8 mg/dL (0.3-1.0); Blood Urea Nitrogen 8 mg/dL (8-23); Calcium 10.7 mg/dL (8.6-10.3); Carbon Dioxide 29 mEq/L (23-29); Chloride 103 mEq/L (98-107); Globulin 2.4 g/dL (2.4-3.5); Glucose 140 mg/dL (70-105); Magnesium 1.8 mg/dL (1.6-2.6); Osmolality,Calculated 283 (280-300); Phosphorous 1.4 mg/dL (2.7-4.5); Potassium 3.7 mEq/L (3.5-5.1); Sodium 136 mEq/L (136-145); Total Protein 4.9 g/dL (6.4-8.9); eGFR For African Americans > 60 (> 60); eGFR For Non-African Americans 51 (> 60)
[2020-04-30] MEDS: Norepinephrine 4 MG/254 ML IV.SOLN IVC SCH ×4 (04:18→20:35)
[2020-04-30] MEDS: PrismaSATE BGK 4/2.5 5,000 ML CRRT SCH ×8 (04:19→20:56)
[2020-04-30 04:47] LABS: ABG Base Excess 3 mEq/L (-2 to 3); ABG HCO3 29 mEq/L (21-27); ABG Oxygen Saturation 98 % (95-98); ABG PCO2 49 mmHg (35-45); ABG PH 7.37 pH Units (7.32-7.45); ABG PO2 103 mmHg (85-104); ABG TCO2 30 mEq/L (20-26); Blood Gas Modality ASSIST CONTROL; Blood Gas VT 480 cc
[2020-04-30] MEDS: *HR* Heparin 5,000 UNIT/ML VIAL SQ SCH ×2 (05:16→17:48)
[2020-04-30] MEDS: Pantoprazole 40 MG VIAL IVP SCH (05:16)
[2020-04-30] MEDS: Potassium Phosphate 44 MEQ in 0.9 % Sodium Chloride 250 ML IVPB PRN (06:14)
[2020-04-30] MEDS: Calcium Chloride 4,000 MG in 0.9 % Sodium Chloride 1,000 ML CRRT SCH ×2 (07:09→17:00)
[2020-04-30] MEDS: cefTRIAXone 1,000 MG in Water for inj. (sterile) 10 ML IVP SCH (07:38)
[2020-04-30] MEDS: Chlorhexidine Rinse 15 ML MOUTHWASH MM SCH ×2 (07:38→20:31)
[2020-04-30] MEDS: Bacitracin/PolymyxinB OINT 14.17 GM TUBE TP SCH ×2 (12:53→20:31)
[2020-04-30] MEDS: Insulin Human Regular 100 UNIT in 0.9 % Sodium Chloride 100 ML IVC SCH (16:13)
[2020-04-30] MEDS: Vasopressin 40 UNIT in D5% in Water 100 ML IVC SCH (16:13)
[2020-04-30 16:54] LABS: VBG Ionized Calcium 1.33 mmol/L (1.15-1.35)
[2020-04-30 17:13] LABS: Albumin 2.6 g/dL (3.5-5.7); Bilirubin,Direct 0.4 mg/dL (0.0-0.2); Bilirubin,Indirect 0.4 mg/dL (0.0-1.0); Bilirubin,Total 0.8 mg/dL (0.3-1.0); Globulin 2.5 g/dL (2.4-3.5); Total Protein 5.1 g/dL (6.4-8.9)
[2020-04-30] MEDS ORDERED: *HR* LORazepam 2 MG/ML VIAL IVP PRN (17:33)
[2020-04-30] MEDS ORDERED: Dextrose Gel 15 GM/37.5 ML TUBE PO PRN ×2 (17:34)
[2020-04-30] MEDS ORDERED: *HR* Dextrose 50 % in Water (Vial) 50 ML VIAL IVP PRN (17:34)
[2020-04-30] MEDS ORDERED: D5% in Water 1,000 ML IVC PRN (17:34)
[2020-04-30 17:52] LABS: Phosphorous 2.1 mg/dL (2.7-4.5); Potassium 3.6 mEq/L (3.5-5.1)
[2020-04-30] MEDS ORDERED: Potassium Chloride Elixir 20 MEQ/15 ML UDC GTUBE ONE (18:14)
[2020-04-30] MEDS ORDERED: 0.9 % Sodium Chloride 2,000 ML ONE (18:57)
[2020-04-30] MEDS ORDERED: *HR* Heparin 5,000 UNIT/ML VIAL ONE (19:11)
[2020-04-30] MEDS ORDERED: 0.9 % Sodium Chloride 1,000 ML ONE (19:28)
[2020-04-30] MEDS: QUEtiapine Fumarate 25 MG TABLET PO SCH (20:31)
[2020-04-30] MEDS: Insulin LISPRO 300 UNITS/3 ML VIAL SQ SCH ×2 (20:34→23:57)
[2020-04-30] MEDS: Sodium Bicarbonate 150 MEQ in D5% in Water 1,000 ML IVC SCH (23:56)
[2020-05-01 00:11] LABS: VBG Ionized Calcium 1.37 mmol/L (1.15-1.35)
[2020-05-01] MEDS: PrismaSATE BGK 4/2.5 5,000 ML CRRT SCH ×8 (02:00→20:36)
[2020-05-01] MEDS: Norepinephrine 4 MG/254 ML IV.SOLN IVC SCH ×5 (02:16→20:35)
[2020-05-01 02:49] LABS: VBG Ionized Calcium 1.33 mmol/L (1.15-1.35)
[2020-05-01] MEDS: Calcium Chloride 4,000 MG in 0.9 % Sodium Chloride 1,000 ML CRRT SCH ×2 (03:46→13:38)
[2020-05-01] MEDS: Artificial Tears SOLN 15 ML BOTTLE BOTH EYES SCH ×5 (04:07→20:30)
[2020-05-01 04:24] LABS: VBG Ionized Calcium 1.31 mmol/L (1.15-1.35)
[2020-05-01 04:30] LABS: Basophils % 0.2 %; Hemoglobin 7.5 g/dL (11.5-15.4); Lymphocytes % 13.8 %; Nucleated Red Blood Cells 0.2 /100 WBC (0)
[2020-05-01 04:32] LABS: Eosinophils # 0.2 K/mcL (0.0-0.6); Eosinophils % 1.3 %; Hematocrit 24.6 % (35.3-44.9); Immature Granulocytes % 0.5 % (0-4); Immature Platelets 7.8 % (1.1-6.1); Lymphocytes # 1.8 K/mcL (0.6-4.6); Mean Corpuscular HGB Conc 30.5 g/dL (31.6-35.5); Mean Corpuscular Hemoglobin 27.3 pg (28.0-33.3); Mean Corpuscular Volume 89.5 fL (83.0-100.0); Mean Platelet Volume 11.5 fL (9.4-12.4); Monocytes # 1.3 K/mcL (0.0-1.3); Monocytes % 9.6 %; Neutrophils # 9.9 K/mcL (1.6-8.9); Red Blood Count 2.75 M/mcL (3.82-4.97); Red Cell Distribution Width 20.6 % (11.5-14.5); Segmented Neutrophils % 74.6 %; White Blood Count 13.2 K/mcL (4.3-11.1)
[2020-05-01 04:39] LABS: BUN/Creatinine Ratio 6 (6-26); Blood Urea Nitrogen 5 mg/dL (8-23); Calcium 10.5 mg/dL (8.6-10.3); Carbon Dioxide 29 mEq/L (23-29); Chloride 106 mEq/L (98-107); Glucose 149 mg/dL (70-105); Magnesium 1.9 mg/dL (1.6-2.6); Osmolality,Calculated 288 (280-300); Phosphorous 2.2 mg/dL (2.7-4.5); Potassium 3.9 mEq/L (3.5-5.1); Sodium 139 mEq/L (136-145); eGFR For African Americans > 60 (> 60); eGFR For Non-African Americans > 60 (> 60)
[2020-05-01 04:41] LABS: Platelet Count 85 K/mcL (140-400)
[2020-05-01] MEDS: Insulin LISPRO 300 UNITS/3 ML VIAL SQ SCH ×5 (05:09→20:31)
[2020-05-01] MEDS: *HR* Heparin 5,000 UNIT/ML VIAL SQ SCH ×2 (05:12→18:11)
[2020-05-01] MEDS: Pantoprazole 40 MG VIAL IVP SCH (05:13)
[2020-05-01] MEDS ORDERED: Potassium Chloride Elixir 20 MEQ/15 ML UDC GTUBE ONE (05:15)
[2020-05-01 05:25] LABS: ABG Base Excess 4 mEq/L (-2 to 3); ABG HCO3 31 mEq/L (21-27); ABG Oxygen Saturation 99 % (95-98); ABG PCO2 59 mmHg (35-45); ABG PH 7.32 pH Units (7.32-7.45); ABG PO2 129 mmHg (85-104); ABG TCO2 32 mEq/L (20-26); Blood Gas Modality ASSIST CONTROL; Blood Gas VT 480 cc
[2020-05-01] MEDS: FentaNYL (PF) 1,000 MCG/100 ML IV.SOLN IVC SCH ×2 (06:09→14:36)
[2020-05-01 06:22] LABS: VBG Ionized Calcium 1.32 mmol/L (1.15-1.35)
[2020-05-01] MEDS: Chlorhexidine Rinse 15 ML MOUTHWASH MM SCH ×2 (07:36→20:30)
[2020-05-01] MEDS: Bacitracin/PolymyxinB OINT 14.17 GM TUBE TP SCH ×2 (07:37→20:31)
[2020-05-01] MEDS: cefTRIAXone 1,000 MG in Water for inj. (sterile) 10 ML IVP SCH (07:37)
[2020-05-01 09:01] LABS: INR 1.2; Prothrombin Time 13.6 Seconds (9.4-12.1)
[2020-05-01 12:34] LABS: Magnesium 2.1 mg/dL (1.6-2.6); Phosphorous 2.3 mg/dL (2.7-4.5); Potassium 4.3 mEq/L (3.5-5.1)
[2020-05-01] MEDS: Vasopressin 40 UNIT in D5% in Water 100 ML IVC SCH (16:33)
[2020-05-01 18:28] LABS: VBG Ionized Calcium 1.31 mmol/L (1.15-1.35)
[2020-05-01] MEDS: QUEtiapine Fumarate 25 MG TABLET PO SCH (20:31)
[2020-05-02] MEDS: Calcium Chloride 4,000 MG in 0.9 % Sodium Chloride 1,000 ML CRRT SCH ×3 (00:07→21:35)
[2020-05-02] MEDS: Artificial Tears SOLN 15 ML BOTTLE BOTH EYES SCH ×7 (00:21→23:20)
[2020-05-02] MEDS: Insulin LISPRO 300 UNITS/3 ML VIAL SQ SCH ×7 (00:21→23:52)
[2020-05-02 00:43] LABS: VBG Ionized Calcium 1.23 mmol/L (1.15-1.35)
[2020-05-02] MEDS: FentaNYL (PF) 1,000 MCG/100 ML IV.SOLN IVC SCH (01:07)
[2020-05-02] MEDS: Norepinephrine 4 MG/254 ML IV.SOLN IVC SCH ×3 (01:07→16:00)
[2020-05-02] MEDS: PrismaSATE BGK 4/2.5 5,000 ML CRRT SCH ×10 (01:08→21:59)
[2020-05-02 04:09] LABS: Hemoglobin 7.6 g/dL (11.5-15.4)
[2020-05-02 04:12] LABS: Basophils % 0.3 %; Eosinophils # 0.1 K/mcL (0.0-0.6); Eosinophils % 1.4 %; Hematocrit 25.4 % (35.3-44.9); Immature Granulocytes % 0.5 % (0-4); Immature Platelets 6.7 % (1.1-6.1); Lymphocytes # 1.2 K/mcL (0.6-4.6); Lymphocytes % 12.3 %; Mean Corpuscular HGB Conc 29.9 g/dL (31.6-35.5); Mean Corpuscular Volume 90.1 fL (83.0-100.0); Mean Platelet Volume 11.2 fL (9.4-12.4); Monocytes # 1.1 K/mcL (0.0-1.3); Monocytes % 11.8 %; Platelet Count 70 K/mcL (140-400); Red Blood Count 2.82 M/mcL (3.82-4.97); Red Cell Distribution Width 20.9 % (11.5-14.5); Segmented Neutrophils % 73.7 %; White Blood Count 9.5 K/mcL (4.3-11.1)
[2020-05-02 04:28] LABS: BUN/Creatinine Ratio 6 (6-26); Blood Urea Nitrogen 4 mg/dL (8-23); Calcium 10.6 mg/dL (8.6-10.3); Carbon Dioxide 30 mEq/L (23-29); Chloride 106 mEq/L (98-107); Glucose 151 mg/dL (70-105); Magnesium 1.7 mg/dL (1.6-2.6); Osmolality,Calculated 290 (280-300); Phosphorous 2.5 mg/dL (2.7-4.5); Potassium 4.2 mEq/L (3.5-5.1); Sodium 140 mEq/L (136-145); eGFR For African Americans > 60 (> 60); eGFR For Non-African Americans > 60 (> 60)
[2020-05-02 04:35] LABS: ABG Base Excess 5 mEq/L (-2 to 3); ABG HCO3 31 mEq/L (21-27); ABG Oxygen Saturation 98 % (95-98); ABG PCO2 53 mmHg (35-45); ABG PH 7.38 pH Units (7.32-7.45); ABG PO2 108 mmHg (85-104); ABG TCO2 33 mEq/L (20-26); Blood Gas VT 480 cc
[2020-05-02] MEDS: Pantoprazole 40 MG VIAL IVP SCH (05:09)
[2020-05-02 06:10] LABS: VBG Ionized Calcium 1.22 mmol/L (1.15-1.35)
[2020-05-02] MEDS: cefTRIAXone 1,000 MG in Water for inj. (sterile) 10 ML IVP SCH (07:37)
[2020-05-02] MEDS: Chlorhexidine Rinse 15 ML MOUTHWASH MM SCH ×2 (07:37→19:57)
[2020-05-02] MEDS: Bacitracin/PolymyxinB OINT 14.17 GM TUBE TP SCH ×2 (07:38→19:59)
[2020-05-02 12:23] LABS: VBG Ionized Calcium 1.32 mmol/L (1.15-1.35)
[2020-05-02] MEDS: Vasopressin 40 UNIT in D5% in Water 100 ML IVC SCH (12:27)
[2020-05-02 12:31] LABS: Phosphorous 2.4 mg/dL (2.7-4.5)
[2020-05-02] MEDS: Potassium Phosphate 44 MEQ in 0.9 % Sodium Chloride 250 ML IVPB PRN (13:52)
[2020-05-02] MEDS ORDERED: 0.9 % Sodium Chloride 2,000 ML ONE ×2 (15:10→20:49)
[2020-05-02 18:15] LABS: VBG Ionized Calcium 1.34 mmol/L (1.15-1.35)
[2020-05-02] MEDS: QUEtiapine Fumarate 25 MG TABLET PO SCH (19:57)
[2020-05-02] MEDS ORDERED: *HR* Heparin 5,000 UNIT/ML VIAL ONE (20:38)
[2020-05-02] MEDS: *HR* Heparin 5,000 UNIT/ML VIAL HE PRN (21:59)
[2020-05-02] MEDS: 0.9 % Sodium Chloride 1,000 ML PRIME SCH (22:00)
[2020-05-03 00:05] LABS: VBG Ionized Calcium 1.32 mmol/L (1.15-1.35)
[2020-05-03] MEDS: Artificial Tears SOLN 15 ML BOTTLE BOTH EYES SCH ×5 (03:43→20:19)
[2020-05-03] MEDS: Insulin LISPRO 300 UNITS/3 ML VIAL SQ SCH ×5 (04:20→21:05)
[2020-05-03 04:47] LABS: BUN/Creatinine Ratio 5 (6-26); Blood Urea Nitrogen 3 mg/dL (8-23); Calcium 10.2 mg/dL (8.6-10.3); Carbon Dioxide 32 mEq/L (23-29); Chloride 103 mEq/L (98-107); Glucose 156 mg/dL (70-105); Magnesium 1.8 mg/dL (1.6-2.6); Osmolality,Calculated 294 (280-300); Sodium 142 mEq/L (136-145); eGFR For African Americans > 60 (> 60); eGFR For Non-African Americans > 60 (> 60)
[2020-05-03 04:53] LABS: Basophils % 0.3 %; Red Blood Count 2.64 M/mcL (3.82-4.97)
[2020-05-03 04:55] LABS: Eosinophils # 0.1 K/mcL (0.0-0.6); Hemoglobin 7.1 g/dL (11.5-15.4); Immature Granulocytes % 1.2 % (0-4); Immature Platelets 9.4 % (1.1-6.1); Lymphocytes # 1.3 K/mcL (0.6-4.6); Lymphocytes % 21.5 %; Mean Corpuscular HGB Conc 29.6 g/dL (31.6-35.5); Mean Corpuscular Hemoglobin 26.9 pg (28.0-33.3); Mean Corpuscular Volume 90.9 fL (83.0-100.0); Mean Platelet Volume 11.1 fL (9.4-12.4); Monocytes # 0.8 K/mcL (0.0-1.3); Monocytes % 13.3 %; Nucleated Red Blood Cells 0.3 /100 WBC (0); Segmented Neutrophils % 61.7 %; White Blood Count 5.9 K/mcL (4.3-11.1)
[2020-05-03 04:56] LABS: Neutrophils # 3.6 K/mcL (1.6-8.9); Platelet Count 49 K/mcL (140-400)
[2020-05-03] MEDS: Pantoprazole 40 MG VIAL IVP SCH (06:01)
[2020-05-03] MEDS: PrismaSATE BGK 4/2.5 5,000 ML CRRT SCH ×8 (06:03→23:12)
[2020-05-03 06:12] LABS: VBG Ionized Calcium 1.21 mmol/L (1.15-1.35)
[2020-05-03] MEDS: cefTRIAXone 1,000 MG in Water for inj. (sterile) 10 ML IVP SCH (07:36)
[2020-05-03] MEDS: Chlorhexidine Rinse 15 ML MOUTHWASH MM SCH ×2 (07:36→20:19)
[2020-05-03] MEDS: Bacitracin/PolymyxinB OINT 14.17 GM TUBE TP SCH ×2 (07:37→20:20)
[2020-05-03] MEDS: Vasopressin 40 UNIT in D5% in Water 100 ML IVC SCH (07:47)
[2020-05-03] MEDS: Calcium Chloride 4,000 MG in 0.9 % Sodium Chloride 1,000 ML CRRT SCH ×2 (09:18→21:00)
[2020-05-03 12:19] LABS: VBG Ionized Calcium 1.28 mmol/L (1.15-1.35)
[2020-05-03] MEDS: Aspirin Enteric Coated 81 MG Tablet PO SCH (15:30)
[2020-05-03] MEDS: Cyanocobalamin (B-12) 1,000 MCG TABLET PO SCH (16:35)
[2020-05-03] MEDS: Ascorbic Acid 500 MG TABLET PO SCH (16:35)
[2020-05-03] MEDS: Gabapentin 300 MG CAPSULE PO SCH ×2 (16:35→20:19)
[2020-05-03] MEDS: *HR* Heparin 5,000 UNIT/ML VIAL SQ SCH (16:36)
[2020-05-03 18:26] LABS: VBG Ionized Calcium 1.25 mmol/L (1.15-1.35)
[2020-05-03] MEDS: QUEtiapine Fumarate 25 MG TABLET PO SCH (20:19)
[2020-05-04] MEDS: Artificial Tears SOLN 15 ML BOTTLE BOTH EYES SCH ×6 (00:21→20:12)
[2020-05-04 00:26] LABS: VBG Ionized Calcium 1.28 mmol/L (1.15-1.35)
[2020-05-04 03:25] LABS: VBG Ionized Calcium 1.28 mmol/L (1.15-1.35)
[2020-05-04 03:29] LABS: Basophils % 0.4 %; Eosinophils # 0.2 K/mcL (0.0-0.6); Eosinophils % 3.4 %; Hematocrit 22.1 % (35.3-44.9); Hemoglobin 6.6 g/dL (11.5-15.4); Immature Granulocytes % 1.6 % (0-4); Lymphocytes # 1.3 K/mcL (0.6-4.6); Lymphocytes % 24.7 %; Mean Corpuscular HGB Conc 29.9 g/dL (31.6-35.5); Mean Corpuscular Hemoglobin 27.2 pg (28.0-33.3); Mean Corpuscular Volume 90.9 fL (83.0-100.0); Mean Platelet Volume 12.3 fL (9.4-12.4); Monocytes # 0.6 K/mcL (0.0-1.3); Monocytes % 11.9 %; Nucleated Red Blood Cells 0.6 /100 WBC (0); Red Blood Count 2.43 M/mcL (3.82-4.97); White Blood Count 5.1 K/mcL (4.3-11.1)
[2020-05-04 03:30] LABS: Platelet Count 49 K/mcL (140-400)
[2020-05-04 03:39] LABS: BUN/Creatinine Ratio 6 (6-26); Blood Urea Nitrogen 3 mg/dL (8-23); Calcium 10.1 mg/dL (8.6-10.3); Carbon Dioxide 33 mEq/L (23-29); Chloride 104 mEq/L (98-107); Glucose 137 mg/dL (70-105); Magnesium 1.8 mg/dL (1.6-2.6); Osmolality,Calculated 289 (280-300); Potassium 3.7 mEq/L (3.5-5.1); Sodium 140 mEq/L (136-145); eGFR For African Americans > 60 (> 60); eGFR For Non-African Americans > 60 (> 60)
[2020-05-04] MEDS: PrismaSATE BGK 4/2.5 5,000 ML CRRT SCH ×4 (05:38→12:16)
[2020-05-04] MEDS: *HR* Heparin 5,000 UNIT/ML VIAL SQ SCH (05:46)
[2020-05-04] MEDS: Pantoprazole 40 MG VIAL IVP SCH (05:46)
[2020-05-04] MEDS: Calcium Chloride 4,000 MG in 0.9 % Sodium Chloride 1,000 ML CRRT SCH (08:10)
[2020-05-04] MEDS: Chlorhexidine Rinse 15 ML MOUTHWASH MM SCH ×2 (08:28→20:11)
[2020-05-04] MEDS: Insulin LISPRO 300 UNITS/3 ML VIAL SQ SCH ×4 (08:30→20:44)
[2020-05-04] MEDS ORDERED: 0.9 % Sodium Chloride 250 ML IVC SCH (08:30)
[2020-05-04] MEDS: Cyanocobalamin (B-12) 1,000 MCG TABLET PO SCH (08:40)
[2020-05-04] MEDS: Ascorbic Acid 500 MG TABLET PO SCH (08:40)
[2020-05-04] MEDS: Aspirin Enteric Coated 81 MG Tablet PO SCH (08:40)
[2020-05-04] MEDS: Bacitracin/PolymyxinB OINT 14.17 GM TUBE TP SCH ×2 (08:41→20:12)
[2020-05-04] MEDS: Gabapentin 300 MG CAPSULE PO SCH ×3 (08:41→20:11)
[2020-05-04] MEDS: cefTRIAXone 1,000 MG in Water for inj. (sterile) 10 ML IVP SCH (08:41)
[2020-05-04 08:47] LABS: VBG Ionized Calcium 1.19 mmol/L (1.15-1.35)
[2020-05-04 14:46] LABS: Hemoglobin 8.2 g/dL (11.5-15.4)
[2020-05-04 14:55] LABS: VBG Ionized Calcium 1.25 mmol/L (1.15-1.35)
[2020-05-04] MEDS ORDERED: *HR* Heparin 5,000 UNIT/ML VIAL ONE (17:04)
[2020-05-04] MEDS: *HR* Heparin 5,000 UNIT/ML VIAL HE PRN (17:32)
[2020-05-04] MEDS ORDERED: Ondansetron 4 MG/2 ML VIAL IVP PRN (17:44)
[2020-05-04] MEDS: QUEtiapine Fumarate 25 MG TABLET PO SCH (20:11)
[2020-05-05] MEDS: Artificial Tears SOLN 15 ML BOTTLE BOTH EYES SCH ×2 (03:46→08:09)
[2020-05-05] MEDS: Norepinephrine 4 MG/254 ML IV.SOLN IVC SCH (03:46)
[2020-05-05 04:27] LABS: Basophils % 0.4 %; Hematocrit 26.2 % (35.3-44.9); Mean Corpuscular Volume 89.7 fL (83.0-100.0); Red Blood Count 2.92 M/mcL (3.82-4.97)
[2020-05-05 04:29] LABS: Eosinophils # 0.1 K/mcL (0.0-0.6); Eosinophils % 1.3 %; Hemoglobin 8.2 g/dL (11.5-15.4); Immature Granulocytes % 2.4 % (0-4); Immature Platelets 9.9 % (1.1-6.1); Lymphocytes # 2.9 K/mcL (0.6-4.6); Lymphocytes % 29.5 %; Mean Corpuscular HGB Conc 31.3 g/dL (31.6-35.5); Mean Corpuscular Hemoglobin 28.1 pg (28.0-33.3); Mean Platelet Volume 11.3 fL (9.4-12.4); Monocytes # 1.3 K/mcL (0.0-1.3); Monocytes % 12.9 %; Neutrophils # 5.2 K/mcL (1.6-8.9); Nucleated Red Blood Cells 1.9 /100 WBC (0); Segmented Neutrophils % 53.5 %; White Blood Count 9.8 K/mcL (4.3-11.1)
[2020-05-05 04:29] LABS: VBG Ionized Calcium 1.51 mmol/L (1.15-1.35)
[2020-05-05 04:30] LABS: Platelet Count 68 K/mcL (140-400)
[2020-05-05 04:45] LABS: BUN/Creatinine Ratio 6 (6-26); Blood Urea Nitrogen 6 mg/dL (8-23); Calcium 10.5 mg/dL (8.6-10.3); Carbon Dioxide 36 mEq/L (23-29); Chloride 101 mEq/L (98-107); Glucose 127 mg/dL (70-105); Magnesium 1.8 mg/dL (1.6-2.6); Osmolality,Calculated 285 (280-300); Phosphorous 3.5 mg/dL (2.7-4.5); Potassium 4.5 mEq/L (3.5-5.1); Sodium 138 mEq/L (136-145); eGFR For African Americans > 60 (> 60); eGFR For Non-African Americans 52 (> 60)
[2020-05-05] MEDS: Pantoprazole 40 MG VIAL IVP SCH (05:50)
[2020-05-05] MEDS: Gabapentin 300 MG CAPSULE PO SCH ×3 (08:08→22:14)
[2020-05-05] MEDS: Chlorhexidine Rinse 15 ML MOUTHWASH MM SCH (08:08)
[2020-05-05] MEDS: Cyanocobalamin (B-12) 1,000 MCG TABLET PO SCH (08:08)
[2020-05-05] MEDS: Ascorbic Acid 500 MG TABLET PO SCH (08:08)
[2020-05-05] MEDS: Aspirin Enteric Coated 81 MG Tablet PO SCH (08:09)
[2020-05-05] MEDS: Bacitracin/PolymyxinB OINT 14.17 GM TUBE TP SCH (08:10)
[2020-05-05] MEDS: Insulin LISPRO 300 UNITS/3 ML VIAL SQ SCH ×4 (08:17→22:16)
[2020-05-05] MEDS ORDERED: *HR* Heparin 10,000 UNIT/10 ML VIAL IV PRN (09:05)
[2020-05-05] MEDS ORDERED: 0.9 % Sodium Chloride 250 ML IVC PRN ×2 (09:05→17:46)
[2020-05-05] MEDS ORDERED: 0.9 % Sodium Chloride 1,000 ML PRIME SCH ×2 (09:15→18:00)
[2020-05-05] MEDS ORDERED: Ipratropium/Albuterol Neb 3 ML IH PRN (10:22)
[2020-05-05] MEDS ORDERED: Artificial Tears SOLN 15 ML BOTTLE BOTH EYES PRN (10:22)
[2020-05-05 12:54] LABS: Hepatitis B Surface Antigen Nonreactive (Nonreactive)
[2020-05-05] MEDS: *HR* Heparin 5,000 UNIT/ML VIAL SQ SCH ×2 (16:26→22:15)
[2020-05-06] MEDS ORDERED: *HR* Heparin 10,000 UNIT/10 ML VIAL IV PRN (00:01)
[2020-05-06] MEDS: QUEtiapine Fumarate 25 MG TABLET PO SCH ×2 (00:16→21:55)
[2020-05-06] MEDS: Bacitracin/PolymyxinB OINT 14.17 GM TUBE TP SCH ×2 (00:16→07:57)
[2020-05-06] MEDS: *HR* Heparin 5,000 UNIT/ML VIAL SQ SCH ×2 (05:40→14:20)
[2020-05-06] MEDS: Aspirin Enteric Coated 81 MG Tablet PO SCH (07:55)
[2020-05-06] MEDS: Ascorbic Acid 500 MG TABLET PO SCH (07:55)
[2020-05-06] MEDS: Gabapentin 300 MG CAPSULE PO SCH ×3 (07:55→21:56)
[2020-05-06] MEDS: Insulin LISPRO 300 UNITS/3 ML VIAL SQ SCH ×4 (07:56→21:56)
[2020-05-06] MEDS: Cyanocobalamin (B-12) 1,000 MCG TABLET PO SCH (07:56)
[2020-05-06 16:44] LABS: Hemoglobin 7.5 g/dL (11.5-15.4)
[2020-05-06 16:46] LABS: Hematocrit 23.9 % (35.3-44.9); Immature Platelets 13.5 % (1.1-6.1); Mean Corpuscular HGB Conc 31.4 g/dL (31.6-35.5); Mean Corpuscular Hemoglobin 27.8 pg (28.0-33.3); Mean Corpuscular Volume 88.5 fL (83.0-100.0); Mean Platelet Volume 12.9 fL (9.4-12.4); Red Blood Count 2.7 M/mcL (3.82-4.97); Red Cell Distribution Width 19.7 % (11.5-14.5); White Blood Count 10.1 K/mcL (4.3-11.1)
[2020-05-06 17:01] LABS: Calcium 9.3 mg/dL (8.6-10.3); Magnesium 1.6 mg/dL (1.6-2.6)
[2020-05-06] MEDS: Ondansetron 4 MG/2 ML VIAL IVP PRN (21:56)
[2020-05-06] MEDS: Sucralfate 1 GM TABLET PO SCH (21:56)
[2020-05-07 00:12] LABS: Hematocrit 23.5 % (35.3-44.9); Hemoglobin 7.4 g/dL (11.5-15.4)
[2020-05-07 00:28] LABS: ABG Base Excess 6 mEq/L (-2 to 3); ABG HCO3 32 mEq/L (21-27); ABG Oxygen Saturation 95 % (95-98); ABG PCO2 54 mmHg (35-45); ABG PH 7.38 pH Units (7.32-7.45); ABG PO2 80 mmHg (85-104); ABG TCO2 34 mEq/L (20-26)
[2020-05-07 02:00] LABS: Basophils % 0.2 %; Hemoglobin 7.1 g/dL (11.5-15.4)
[2020-05-07 02:02] LABS: Eosinophils # 0.1 K/mcL (0.0-0.6); Eosinophils % 0.9 %; Hematocrit 22.5 % (35.3-44.9); Immature Granulocytes % 0.8 % (0-4); Immature Platelets 11.5 % (1.1-6.1); Lymphocytes # 1.8 K/mcL (0.6-4.6); Lymphocytes % 20.2 %; Mean Corpuscular HGB Conc 31.6 g/dL (31.6-35.5); Mean Corpuscular Hemoglobin 27.8 pg (28.0-33.3); Mean Corpuscular Volume 88.2 fL (83.0-100.0); Mean Platelet Volume 11.5 fL (9.4-12.4); Monocytes # 0.7 K/mcL (0.0-1.3); Neutrophils # 6.3 K/mcL (1.6-8.9); Nucleated Red Blood Cells 0.9 /100 WBC (0); Red Blood Count 2.55 M/mcL (3.82-4.97); Red Cell Distribution Width 19.3 % (11.5-14.5); Segmented Neutrophils % 69.9 %
[2020-05-07 02:05] LABS: Platelet Count 38 K/mcL (140-400)
[2020-05-07 02:16] LABS: Calcium 8.9 mg/dL (8.6-10.3); Magnesium 1.6 mg/dL (1.6-2.6); Phosphorous 3.7 mg/dL (2.7-4.5)
[2020-05-07] MEDS: Bacitracin/PolymyxinB OINT 14.17 GM TUBE TP SCH ×3 (05:51→21:20)
[2020-05-07] MEDS: Aspirin Enteric Coated 81 MG Tablet PO SCH (07:57)
[2020-05-07] MEDS: Loratadine 10 MG TABLET PO SCH (08:14)
[2020-05-07] MEDS: Metoprolol XL (24 HR) Succ 25 MG TAB.ER.24H PO SCH (08:14)
[2020-05-07] MEDS: Sucralfate 1 GM TABLET PO SCH ×4 (08:15→21:20)
[2020-05-07] MEDS: Gabapentin 300 MG CAPSULE PO SCH ×3 (08:15→21:19)
[2020-05-07] MEDS: Furosemide 40 MG TABLET PO SCH ×2 (08:15→17:05)
[2020-05-07] MEDS: Pyridoxine (B-6) 50 MG TABLET PO SCH (08:15)
[2020-05-07] MEDS: Insulin LISPRO 300 UNITS/3 ML VIAL SQ SCH ×4 (08:16→21:20)
[2020-05-07] MEDS: Ascorbic Acid 500 MG TABLET PO SCH (08:16)
[2020-05-07] MEDS: Cyanocobalamin (B-12) 1,000 MCG TABLET PO SCH (08:16)
[2020-05-07] MEDS: Ondansetron 4 MG/2 ML VIAL IVP PRN ×2 (11:34→21:21)
[2020-05-07 14:21] LABS: Hematocrit 23.8 % (35.3-44.9); Hemoglobin 7.5 g/dL (11.5-15.4)
[2020-05-07] MEDS: QUEtiapine Fumarate 25 MG TABLET PO SCH (21:20)
[2020-05-08 03:33] LABS: Basophils % 0.2 %; Hemoglobin 6.7 g/dL (11.5-15.4); Mean Corpuscular Hemoglobin 28.2 pg (28.0-33.3); Red Blood Count 2.38 M/mcL (3.82-4.97)
[2020-05-08 03:35] LABS: Eosinophils # 0.1 K/mcL (0.0-0.6); Eosinophils % 0.6 %; Hematocrit 20.9 % (35.3-44.9); Immature Granulocytes % 0.7 % (0-4); Immature Platelets 10.3 % (1.1-6.1); Lymphocytes # 2.2 K/mcL (0.6-4.6); Lymphocytes % 21.6 %; Mean Corpuscular HGB Conc 32.1 g/dL (31.6-35.5); Mean Corpuscular Volume 87.8 fL (83.0-100.0); Mean Platelet Volume 11.9 fL (9.4-12.4); Monocytes # 0.8 K/mcL (0.0-1.3); Nucleated Red Blood Cells 0.4 /100 WBC (0); Red Cell Distribution Width 19.9 % (11.5-14.5); Segmented Neutrophils % 68.9 %; White Blood Count 10.2 K/mcL (4.3-11.1)
[2020-05-08 03:49] LABS: % Iron Saturation 11 % (15-50); Iron 30 mcg/dL (50-170); Transferrin 193 mg/dL (203-362)
[2020-05-08 03:50] LABS: Platelet Count 71 K/mcL (140-400)
[2020-05-08 03:53] LABS: Calcium 8.7 mg/dL (8.6-10.3); Magnesium 1.3 mg/dL (1.6-2.6); Potassium 3.5 mEq/L (3.5-5.1)
[2020-05-08] MEDS ORDERED: 0.9 % Sodium Chloride 500 ML ONE (06:42)
[2020-05-08] MEDS ORDERED: Iron Sucrose Complex 400 MG in 0.9 % Sodium Chloride 250 ML IVPB ONE (07:31)
[2020-05-08] MEDS: Insulin LISPRO 300 UNITS/3 ML VIAL SQ SCH ×4 (08:00→22:24)
[2020-05-08] MEDS: Furosemide 40 MG TABLET PO SCH ×2 (09:26→16:57)
[2020-05-08] MEDS: Ascorbic Acid 500 MG TABLET PO SCH (09:26)
[2020-05-08] MEDS: Metoprolol XL (24 HR) Succ 25 MG TAB.ER.24H PO SCH (09:26)
[2020-05-08] MEDS: Sennosides/Docusate Sodium TABLET PO SCH ×2 (09:26→22:11)
[2020-05-08] MEDS: Sucralfate 1 GM TABLET PO SCH ×4 (09:27→22:10)
[2020-05-08] MEDS: Pyridoxine (B-6) 50 MG TABLET PO SCH (09:27)
[2020-05-08] MEDS: Aspirin Enteric Coated 81 MG Tablet PO SCH (09:27)
[2020-05-08] MEDS: Gabapentin 300 MG CAPSULE PO SCH ×3 (09:27→22:10)
[2020-05-08] MEDS: Loratadine 10 MG TABLET PO SCH (09:27)
[2020-05-08] MEDS: Cyanocobalamin (B-12) 1,000 MCG TABLET PO SCH (09:28)
[2020-05-08] MEDS: Bacitracin/PolymyxinB OINT 14.17 GM TUBE TP SCH (09:28)
[2020-05-08] MEDS: Ondansetron 4 MG/2 ML VIAL IVP PRN (12:39)
[2020-05-08] MEDS ORDERED: Magnesium Sulfate 1 GM/102 ML PIGGYBACK IVPB ONE (13:09)
[2020-05-08] MEDS: *HR* Metoprolol 5 MG/5 ML VIAL IVP PRN ×2 (13:19→18:16)
[2020-05-08] MEDS ORDERED: Furosemide 40 MG/4 ML VIAL IVP ONE (16:56)
[2020-05-08] MEDS: *HR* Heparin 5,000 UNIT/ML VIAL SQ SCH (16:57)
[2020-05-08 17:59] LABS: Hematocrit 27.7 % (35.3-44.9)
[2020-05-08 18:11] LABS: Hemoglobin 8.8 g/dL (11.5-15.4)
[2020-05-08] MEDS ORDERED: methylPREDNISolone 125 MG/2 ML VIAL IVP ONE (18:14)
[2020-05-08] MEDS: QUEtiapine Fumarate 25 MG TABLET PO SCH (22:11)
[2020-05-09] MEDS: *HR* Heparin 5,000 UNIT/ML VIAL SQ SCH (05:20)
[2020-05-09 05:55] LABS: Basophils % 0.2 %; Hematocrit 26.3 % (35.3-44.9); Hemoglobin 8.3 g/dL (11.5-15.4); Immature Granulocytes % 0.9 % (0-4); Lymphocytes % 9.6 %; Mean Corpuscular HGB Conc 31.6 g/dL (31.6-35.5); Mean Corpuscular Hemoglobin 28.9 pg (28.0-33.3); Mean Corpuscular Volume 91.6 fL (83.0-100.0); Mean Platelet Volume 12.4 fL (9.4-12.4); Monocytes # 0.2 K/mcL (0.0-1.3); Monocytes % 1.4 %; Neutrophils # 9.3 K/mcL (1.6-8.9); Nucleated Red Blood Cells 0.2 /100 WBC (0); Platelet Count 108 K/mcL (140-400); Red Blood Count 2.87 M/mcL (3.82-4.97); Red Cell Distribution Width 19.4 % (11.5-14.5); Segmented Neutrophils % 87.9 %; White Blood Count 10.6 K/mcL (4.3-11.1)
[2020-05-09 06:20] LABS: Calcium 9.1 mg/dL (8.6-10.3); Magnesium 1.4 mg/dL (1.6-2.6); Phosphorous 3.8 mg/dL (2.7-4.5); Potassium 3.7 mEq/L (3.5-5.1)
[2020-05-09] MEDS ORDERED: Magnesium Sulfate 1 GM/102 ML PIGGYBACK IVPB ONE (07:34)
[2020-05-09] MEDS ORDERED: *HR* Dextrose 50 % in Water (Vial) 50 ML VIAL IVP PRN (07:54)
[2020-05-09] MEDS ORDERED: Dextrose Gel 15 GM/37.5 ML TUBE PO PRN ×2 (07:54)
[2020-05-09] MEDS ORDERED: D5% in Water 1,000 ML IVC PRN (07:54)
[2020-05-09] MEDS: Bacitracin/PolymyxinB OINT 14.17 GM TUBE TP SCH ×3 (08:08→23:41)
[2020-05-09] MEDS: Insulin LISPRO 300 UNITS/3 ML VIAL SQ SCH ×4 (08:28→22:12)
[2020-05-09] MEDS: Sucralfate 1 GM TABLET PO SCH ×4 (08:28→22:12)
[2020-05-09] MEDS: Magnesium Oxide 400 MG TABLET PO SCH ×2 (08:28→20:07)
[2020-05-09] MEDS: Sennosides/Docusate Sodium TABLET PO SCH ×2 (08:28→20:06)
[2020-05-09] MEDS: Aspirin Enteric Coated 81 MG Tablet PO SCH (08:28)
[2020-05-09] MEDS: Insulin DETEMIR 100 UNIT/ML X5UNITS SQ SCH ×2 (08:28→22:12)
[2020-05-09] MEDS: Loratadine 10 MG TABLET PO SCH (08:29)
[2020-05-09] MEDS: Gabapentin 300 MG CAPSULE PO SCH ×3 (08:29→20:07)
[2020-05-09] MEDS: Cyanocobalamin (B-12) 1,000 MCG TABLET PO SCH (08:29)
[2020-05-09] MEDS: Furosemide 40 MG TABLET PO SCH (08:29)
[2020-05-09] MEDS: Ascorbic Acid 500 MG TABLET PO SCH (08:29)
[2020-05-09] MEDS: Metoprolol XL (24 HR) Succ 25 MG TAB.ER.24H PO SCH ×2 (08:29→11:53)
[2020-05-09] MEDS: Pyridoxine (B-6) 50 MG TABLET PO SCH (08:29)
[2020-05-09] MEDS ORDERED: Perflutren Lipid Microsphere 1.3 ML in 0.9 % Sodium Chloride 8.7 ML IVP PRN (11:16)
[2020-05-09] MEDS ORDERED: Pantoprazole 40 MG VIAL IVP SCH (11:57)
[2020-05-09] MEDS ORDERED: Metoprolol XL (24 HR) Succ 25 MG TAB.ER.24H PO ONE (11:59)
[2020-05-09] MEDS ORDERED: Pantoprazole 40 MG VIAL IVP ONE (13:30)
[2020-05-09] MEDS: Pantoprazole 40 MG in 0.9 % Sodium Chloride Mini Bag 100 ML IVC SCH ×2 (14:03→18:37)
[2020-05-09] MEDS: *HR* Metoprolol 5 MG/5 ML VIAL IVP PRN (14:23)
[2020-05-09 14:51] LABS: Hematocrit 26.4 % (35.3-44.9); Hemoglobin 8.6 g/dL (11.5-15.4)
[2020-05-09] MEDS: QUEtiapine Fumarate 25 MG TABLET PO SCH (20:08)
[2020-05-09] MEDS: Furosemide 40 MG/4 ML VIAL IVP SCH (20:25)
[2020-05-09 20:35] LABS: Hematocrit 25.5 % (35.3-44.9); Hemoglobin 8.2 g/dL (11.5-15.4)
[2020-05-09 22:03] LABS: Adenovirus Not Detected (Not Detect); Bordetella Pertussis Not Detected (Not Detect); Chlamydophila pneumoniae Not Detected (Not Detect); Coronavirus 229E Not Detected (Not Detect); Coronavirus HKU1 Not Detected (Not Detect); Coronavirus NL63 Not Detected (Not Detect); Coronavirus OC43 Not Detected (Not Detect); Human Metapneumovirus Not Detected (Not Detect); Human Rhinovirus/Enterovirus Not Detected (Not Detect); Influenza A Subtype 2009 H1 Not Detected (Not Detect); Influenza B Not Detected (Not Detect); Mycoplasma pneumoniae Not Detected (Not Detect); Parainfluenza Virus 1 Not Detected (Not Detect); Parainfluenza Virus 2 Not Detected (Not Detect); Parainfluenza Virus 3 Not Detected (Not Detect); Parainfluenza Virus 4 Not Detected (Not Detect); Respiratory Syncytial Virus Not Detected (Not Detect); SARS-CoV-2 Not Detected (Not Detect)
[2020-05-10] MEDS: Pantoprazole 40 MG in 0.9 % Sodium Chloride Mini Bag 100 ML IVC SCH ×6 (04:08→23:57)
[2020-05-10 07:05] LABS: Hematocrit 24.8 % (35.3-44.9); Hemoglobin 7.9 g/dL (11.5-15.4); Mean Corpuscular HGB Conc 31.9 g/dL (31.6-35.5); Mean Corpuscular Hemoglobin 29.6 pg (28.0-33.3); Mean Corpuscular Volume 92.9 fL (83.0-100.0); Mean Platelet Volume 12.1 fL (9.4-12.4); Platelet Count 161 K/mcL (140-400); Red Blood Count 2.67 M/mcL (3.82-4.97); Red Cell Distribution Width 19.9 % (11.5-14.5)
[2020-05-10 07:22] LABS: Calcium 8.5 mg/dL (8.6-10.3); Magnesium 1.5 mg/dL (1.6-2.6); Phosphorous 2.4 mg/dL (2.7-4.5); Potassium 2.8 mEq/L (3.5-5.1)
[2020-05-10] MEDS ORDERED: Magnesium Sulfate 1 GM/102 ML PIGGYBACK IVPB ONE (07:29)
[2020-05-10] MEDS: Cyanocobalamin (B-12) 1,000 MCG TABLET PO SCH (08:59)
[2020-05-10] MEDS: Metoprolol XL (24 HR) Succ 25 MG TAB.ER.24H PO SCH (08:59)
[2020-05-10] MEDS: Sennosides/Docusate Sodium TABLET PO SCH ×2 (09:00→21:10)
[2020-05-10] MEDS: Aspirin Enteric Coated 81 MG Tablet PO SCH (09:00)
[2020-05-10] MEDS: Magnesium Oxide 400 MG TABLET PO SCH ×2 (09:00→21:10)
[2020-05-10] MEDS: Loratadine 10 MG TABLET PO SCH (09:00)
[2020-05-10] MEDS: Pyridoxine (B-6) 50 MG TABLET PO SCH (09:00)
[2020-05-10] MEDS: Gabapentin 300 MG CAPSULE PO SCH ×3 (09:00→21:10)
[2020-05-10] MEDS: Sucralfate 1 GM TABLET PO SCH ×4 (09:00→21:10)
[2020-05-10] MEDS: Ascorbic Acid 500 MG TABLET PO SCH (09:00)
[2020-05-10] MEDS: Insulin DETEMIR 100 UNIT/ML X5UNITS SQ SCH ×2 (09:02→21:10)
[2020-05-10] MEDS: Insulin LISPRO 300 UNITS/3 ML VIAL SQ SCH ×4 (09:02→21:11)
[2020-05-10] MEDS: Furosemide 40 MG/4 ML VIAL IVP SCH ×2 (09:02→21:04)
[2020-05-10] MEDS: Bacitracin/PolymyxinB OINT 14.17 GM TUBE TP SCH ×2 (09:03→21:11)
[2020-05-10] MEDS: QUEtiapine Fumarate 25 MG TABLET PO SCH (21:10)
[2020-05-11] MEDS: Pantoprazole 40 MG in 0.9 % Sodium Chloride Mini Bag 100 ML IVC SCH ×3 (04:13→15:56)
[2020-05-11] MEDS: Loratadine 10 MG TABLET PO SCH (08:27)
[2020-05-11] MEDS: Pyridoxine (B-6) 50 MG TABLET PO SCH (08:27)
[2020-05-11] MEDS: Cyanocobalamin (B-12) 1,000 MCG TABLET PO SCH (08:27)
[2020-05-11] MEDS: Metoprolol XL (24 HR) Succ 25 MG TAB.ER.24H PO SCH (08:27)
[2020-05-11] MEDS: Magnesium Oxide 400 MG TABLET PO SCH ×2 (08:27→20:52)
[2020-05-11] MEDS: Gabapentin 300 MG CAPSULE PO SCH ×3 (08:27→20:53)
[2020-05-11] MEDS: Aspirin Enteric Coated 81 MG Tablet PO SCH (08:27)
[2020-05-11] MEDS: Ascorbic Acid 500 MG TABLET PO SCH (08:27)
[2020-05-11] MEDS: Sucralfate 1 GM TABLET PO SCH ×4 (08:27→20:52)
[2020-05-11] MEDS: Insulin LISPRO 300 UNITS/3 ML VIAL SQ SCH ×4 (08:28→20:51)
[2020-05-11] MEDS: Furosemide 40 MG/4 ML VIAL IVP SCH (08:28)
[2020-05-11] MEDS: Insulin DETEMIR 100 UNIT/ML X5UNITS SQ SCH ×2 (08:28→20:51)
[2020-05-11] MEDS: Bacitracin/PolymyxinB OINT 14.17 GM TUBE TP SCH ×2 (08:29→21:00)
[2020-05-11] MEDS: Sennosides/Docusate Sodium TABLET PO SCH ×2 (08:29→20:52)
[2020-05-11 12:12] LABS: Basophils % 0.2 %; Eosinophils # 0.1 K/mcL (0.0-0.6); Eosinophils % 0.7 %; Hematocrit 25.9 % (35.3-44.9); Hemoglobin 8.1 g/dL (11.5-15.4); Immature Granulocytes % 0.4 % (0-4); Lymphocytes # 1.3 K/mcL (0.6-4.6); Lymphocytes % 12.2 %; Mean Corpuscular HGB Conc 31.3 g/dL (31.6-35.5); Mean Corpuscular Volume 92.8 fL (83.0-100.0); Mean Platelet Volume 11.3 fL (9.4-12.4); Monocytes # 0.7 K/mcL (0.0-1.3); Monocytes % 6.7 %; Neutrophils # 8.8 K/mcL (1.6-8.9); Platelet Count 207 K/mcL (140-400); Red Blood Count 2.79 M/mcL (3.82-4.97); Red Cell Distribution Width 20.4 % (11.5-14.5); Segmented Neutrophils % 79.8 %
[2020-05-11] MEDS ORDERED: Lidocaine -MPF 2% 2 ML VIAL ONE (12:15)
[2020-05-11] MEDS ORDERED: *HR* Propofol 200 MG/20 ML VIAL IVP ONE (12:16)
[2020-05-11 12:28] LABS: BUN/Creatinine Ratio 21 (6-26); Blood Urea Nitrogen 18 mg/dL (8-23); Calcium 8.5 mg/dL (8.6-10.3); Carbon Dioxide 37 mEq/L (23-29); Chloride 95 mEq/L (98-107); Glucose 125 mg/dL (70-105); Magnesium 1.2 mg/dL (1.6-2.6); Osmolality,Calculated 287 (280-300); Phosphorous 1.8 mg/dL (2.7-4.5); Potassium 2.8 mEq/L (3.5-5.1); Sodium 137 mEq/L (136-145); eGFR For African Americans > 60 (> 60); eGFR For Non-African Americans > 60 (> 60)
[2020-05-11] MEDS ORDERED: Potassium Phosphate 44 MEQ in 0.9 % Sodium Chloride 250 ML IVPB ONE ×2 (15:29→18:00)
[2020-05-11] MEDS: Furosemide 40 MG TABLET PO SCH (16:04)
[2020-05-11] MEDS ORDERED: Magnesium Oxide 400 MG TABLET PO ONE (16:18)
[2020-05-11] MEDS: QUEtiapine Fumarate 25 MG TABLET PO SCH (20:52)
[2020-05-12 06:26] LABS: Hematocrit 25.8 % (35.3-44.9); Hemoglobin 8.1 g/dL (11.5-15.4); Mean Corpuscular HGB Conc 31.4 g/dL (31.6-35.5); Mean Corpuscular Hemoglobin 29.3 pg (28.0-33.3); Mean Corpuscular Volume 93.5 fL (83.0-100.0); Mean Platelet Volume 11.6 fL (9.4-12.4); Platelet Count 229 K/mcL (140-400); Red Blood Count 2.76 M/mcL (3.82-4.97); Red Cell Distribution Width 20.8 % (11.5-14.5)
[2020-05-12] MEDS: Furosemide 40 MG TABLET PO SCH ×2 (08:18→17:26)
[2020-05-12] MEDS: Cyanocobalamin (B-12) 1,000 MCG TABLET PO SCH (08:18)
[2020-05-12] MEDS: Gabapentin 300 MG CAPSULE PO SCH ×3 (08:18→21:00)
[2020-05-12] MEDS: Sucralfate 1 GM TABLET PO SCH ×4 (08:19→21:00)
[2020-05-12] MEDS: Pyridoxine (B-6) 50 MG TABLET PO SCH (08:19)
[2020-05-12] MEDS: Metoprolol XL (24 HR) Succ 25 MG TAB.ER.24H PO SCH (08:19)
[2020-05-12] MEDS: Magnesium Oxide 400 MG TABLET PO SCH ×2 (08:19→21:03)
[2020-05-12] MEDS: Aspirin Enteric Coated 81 MG Tablet PO SCH (08:19)
[2020-05-12] MEDS: Loratadine 10 MG TABLET PO SCH (08:19)
[2020-05-12] MEDS: Sennosides/Docusate Sodium TABLET PO SCH ×2 (08:19→21:01)
[2020-05-12] MEDS: Ascorbic Acid 500 MG TABLET PO SCH (08:19)
[2020-05-12] MEDS: Insulin LISPRO 300 UNITS/3 ML VIAL SQ SCH ×4 (08:20→21:02)
[2020-05-12] MEDS: Insulin DETEMIR 100 UNIT/ML X5UNITS SQ SCH ×2 (08:20→21:01)
[2020-05-12] MEDS: Bacitracin/PolymyxinB OINT 14.17 GM TUBE TP SCH ×2 (08:21→21:15)
[2020-05-12 08:37] LABS: BUN/Creatinine Ratio 17 (6-26); Blood Urea Nitrogen 15 mg/dL (8-23); Calcium 8.5 mg/dL (8.6-10.3); Carbon Dioxide 37 mEq/L (23-29); Chloride 93 mEq/L (98-107); Glucose 140 mg/dL (70-105); Magnesium 1.2 mg/dL (1.6-2.6); Osmolality,Calculated 287 (280-300); Phosphorous 2.1 mg/dL (2.7-4.5); Potassium 3.2 mEq/L (3.5-5.1); Sodium 137 mEq/L (136-145); eGFR For African Americans > 60 (> 60); eGFR For Non-African Americans > 60 (> 60)
[2020-05-12] MEDS ORDERED: Furosemide 40 MG/4 ML VIAL IVP ONE (09:07)
[2020-05-12] MEDS ORDERED: Potassium Phosphate 44 MEQ in 0.9 % Sodium Chloride 250 ML IVPB ONE ×2 (13:59→18:00)
[2020-05-12] MEDS: QUEtiapine Fumarate 25 MG TABLET PO SCH (21:01)
[2020-05-13 05:47] LABS: Hematocrit 25.2 % (35.3-44.9); Hemoglobin 7.8 g/dL (11.5-15.4); Mean Corpuscular Hemoglobin 29.2 pg (28.0-33.3); Mean Corpuscular Volume 94.4 fL (83.0-100.0); Mean Platelet Volume 11.1 fL (9.4-12.4); Platelet Count 244 K/mcL (140-400); Red Blood Count 2.67 M/mcL (3.82-4.97); White Blood Count 8.6 K/mcL (4.3-11.1)
[2020-05-13 06:12] LABS: BUN/Creatinine Ratio 17 (6-26); Blood Urea Nitrogen 15 mg/dL (8-23); Calcium 8.2 mg/dL (8.6-10.3); Carbon Dioxide 41 mEq/L (23-29); Chloride 93 mEq/L (98-107); Glucose 141 mg/dL (70-105); Magnesium 1.6 mg/dL (1.6-2.6); Osmolality,Calculated 287 (280-300); Phosphorous 2.9 mg/dL (2.7-4.5); Potassium 3.3 mEq/L (3.5-5.1); Sodium 137 mEq/L (136-145); eGFR For African Americans > 60 (> 60); eGFR For Non-African Americans > 60 (> 60)
[2020-05-13] MEDS: Insulin LISPRO 300 UNITS/3 ML VIAL SQ SCH ×4 (07:26→21:10)
[2020-05-13] MEDS: Sennosides/Docusate Sodium TABLET PO SCH ×2 (07:32→21:10)
[2020-05-13] MEDS: Metoprolol XL (24 HR) Succ 25 MG TAB.ER.24H PO SCH (07:32)
[2020-05-13] MEDS: Sucralfate 1 GM TABLET PO SCH ×4 (07:33→21:10)
[2020-05-13] MEDS: Magnesium Oxide 400 MG TABLET PO SCH ×2 (07:33→21:09)
[2020-05-13] MEDS: Loratadine 10 MG TABLET PO SCH (07:33)
[2020-05-13] MEDS: Pyridoxine (B-6) 50 MG TABLET PO SCH (07:33)
[2020-05-13] MEDS: Aspirin Enteric Coated 81 MG Tablet PO SCH (07:33)
[2020-05-13] MEDS: Gabapentin 300 MG CAPSULE PO SCH ×3 (07:33→21:09)
[2020-05-13] MEDS: Ascorbic Acid 500 MG TABLET PO SCH (07:33)
[2020-05-13] MEDS: Furosemide 40 MG TABLET PO SCH ×2 (07:33→17:54)
[2020-05-13] MEDS: Cyanocobalamin (B-12) 1,000 MCG TABLET PO SCH (07:34)
[2020-05-13] MEDS: Bacitracin/PolymyxinB OINT 14.17 GM TUBE TP SCH ×2 (07:34→21:10)
[2020-05-13] MEDS: Insulin DETEMIR 100 UNIT/ML X5UNITS SQ SCH ×2 (07:34→21:09)
[2020-05-13] MEDS ORDERED: Potassium Chloride 20 MEQ, Lidocaine 1% 2 ML in 0.9 % Sodium Chloride 250 ML IVPB ONE (07:53)
[2020-05-13 13:28] LABS: INR 1.2; Prothrombin Time 13.3 Seconds (9.4-12.1)
[2020-05-13 17:25] LABS: RBC,Pleural Fluid < 2000 RBC/mcL
[2020-05-13 17:28] LABS: Appearance of Pleural Fl Hazy (Clear)
[2020-05-13 17:48] LABS: Glucose,Pleural Fluid 201 mg/dL (No Ref Range); LDH,Pleural Fluid 95 Units/L (No Ref Range); Total Protein,Pleural Fluid < 2.0 g/dL
[2020-05-13] MEDS: QUEtiapine Fumarate 25 MG TABLET PO SCH (21:10)
[2020-05-14 06:18] LABS: Hematocrit 26.4 % (35.3-44.9); Mean Corpuscular HGB Conc 30.3 g/dL (31.6-35.5); Mean Corpuscular Hemoglobin 28.6 pg (28.0-33.3); Mean Corpuscular Volume 94.3 fL (83.0-100.0); Mean Platelet Volume 11.2 fL (9.4-12.4); Platelet Count 264 K/mcL (140-400); Red Cell Distribution Width 20.8 % (11.5-14.5); White Blood Count 8.4 K/mcL (4.3-11.1)
[2020-05-14 06:36] LABS: BUN/Creatinine Ratio 21 (6-26); Blood Urea Nitrogen 14 mg/dL (8-23); Calcium 8.1 mg/dL (8.6-10.3); Carbon Dioxide 38 mEq/L (23-29); Chloride 94 mEq/L (98-107); Glucose 128 mg/dL (70-105); Magnesium 1.2 mg/dL (1.6-2.6); Osmolality,Calculated 288 (280-300); Phosphorous 1.9 mg/dL (2.7-4.5); Potassium 2.9 mEq/L (3.5-5.1); Sodium 138 mEq/L (136-145); eGFR For African Americans > 60 (> 60); eGFR For Non-African Americans > 60 (> 60)
[2020-05-14] MEDS ORDERED: Potassium Phosphate 44 MEQ in 0.9 % Sodium Chloride 250 ML IVPB ONE (07:41)
[2020-05-14] MEDS: Furosemide 40 MG TABLET PO SCH ×2 (09:15→17:04)
[2020-05-14] MEDS: Sennosides/Docusate Sodium TABLET PO SCH ×2 (09:15→21:05)
[2020-05-14] MEDS: Aspirin Enteric Coated 81 MG Tablet PO SCH (09:15)
[2020-05-14] MEDS: Metoprolol XL (24 HR) Succ 25 MG TAB.ER.24H PO SCH (09:15)
[2020-05-14] MEDS: Loratadine 10 MG TABLET PO SCH (09:15)
[2020-05-14] MEDS: Cyanocobalamin (B-12) 1,000 MCG TABLET PO SCH (09:15)
[2020-05-14] MEDS: Gabapentin 300 MG CAPSULE PO SCH ×3 (09:15→21:05)
[2020-05-14] MEDS: Pyridoxine (B-6) 50 MG TABLET PO SCH (09:16)
[2020-05-14] MEDS: Magnesium Oxide 400 MG TABLET PO SCH ×2 (09:16→21:05)
[2020-05-14] MEDS: Sucralfate 1 GM TABLET PO SCH ×4 (09:16→21:05)
[2020-05-14] MEDS: Ascorbic Acid 500 MG TABLET PO SCH (09:16)
[2020-05-14] MEDS: Insulin LISPRO 300 UNITS/3 ML VIAL SQ SCH ×4 (09:17→21:07)
[2020-05-14] MEDS: Insulin DETEMIR 100 UNIT/ML X5UNITS SQ SCH ×2 (09:33→21:06)
[2020-05-14] MEDS: Bacitracin/PolymyxinB OINT 14.17 GM TUBE TP SCH ×2 (09:33→23:27)
[2020-05-14] MEDS: QUEtiapine Fumarate 25 MG TABLET PO SCH (21:06)
[2020-05-15 02:12] LABS: Hematocrit 25.6 % (35.3-44.9); Hemoglobin 7.8 g/dL (11.5-15.4); Mean Corpuscular HGB Conc 30.5 g/dL (31.6-35.5); Mean Corpuscular Hemoglobin 28.7 pg (28.0-33.3); Mean Corpuscular Volume 94.1 fL (83.0-100.0); Mean Platelet Volume 10.9 fL (9.4-12.4); Platelet Count 282 K/mcL (140-400); Red Blood Count 2.72 M/mcL (3.82-4.97); Red Cell Distribution Width 20.8 % (11.5-14.5); White Blood Count 7.9 K/mcL (4.3-11.1)
[2020-05-15 02:35] LABS: BUN/Creatinine Ratio 19 (6-26); Blood Urea Nitrogen 14 mg/dL (8-23); Calcium 7.9 mg/dL (8.6-10.3); Carbon Dioxide 39 mEq/L (23-29); Chloride 93 mEq/L (98-107); Glucose 163 mg/dL (70-105); Osmolality,Calculated 290 (280-300); Potassium 3.1 mEq/L (3.5-5.1); Sodium 138 mEq/L (136-145); eGFR For African Americans > 60 (> 60); eGFR For Non-African Americans > 60 (> 60)
[2020-05-15] MEDS: *HR* Metoprolol 5 MG/5 ML VIAL IVP PRN ×2 (04:29→11:16)
[2020-05-15] MEDS: Sucralfate 1 GM TABLET PO SCH ×2 (05:58→11:15)
[2020-05-15] MEDS: Insulin LISPRO 300 UNITS/3 ML VIAL SQ SCH ×2 (07:25→11:16)
[2020-05-15 08:21] LABS: Magnesium 1.5 mg/dL (1.6-2.6); Phosphorous 2.4 mg/dL (2.7-4.5)
[2020-05-15] MEDS: Furosemide 40 MG TABLET PO SCH (08:46)
[2020-05-15] MEDS: Aspirin Enteric Coated 81 MG Tablet PO SCH (08:46)
[2020-05-15] MEDS: Magnesium Oxide 400 MG TABLET PO SCH (08:46)
[2020-05-15] MEDS: Pyridoxine (B-6) 50 MG TABLET PO SCH (08:46)
[2020-05-15] MEDS: Sennosides/Docusate Sodium TABLET PO SCH (08:46)
[2020-05-15] MEDS: Bacitracin/PolymyxinB OINT 14.17 GM TUBE TP SCH (08:47)
[2020-05-15] MEDS: Loratadine 10 MG TABLET PO SCH (08:47)
[2020-05-15] MEDS: Gabapentin 300 MG CAPSULE PO SCH (08:47)
[2020-05-15] MEDS: Cyanocobalamin (B-12) 1,000 MCG TABLET PO SCH (08:47)
[2020-05-15] MEDS: Insulin DETEMIR 100 UNIT/ML X5UNITS SQ SCH (08:47)
[2020-05-15] MEDS: Ascorbic Acid 500 MG TABLET PO SCH (08:47)
[2020-05-15] MEDS ORDERED: Metoprolol XL (24 HR) Succ 25 MG TAB.ER.24H PO SCH (09:00)
[2020-05-15 11:34] LABS: Adenovirus Not Detected (Not Detect); Bordetella Pertussis Not Detected (Not Detect); Chlamydophila pneumoniae Not Detected (Not Detect); Coronavirus 229E Not Detected (Not Detect); Coronavirus HKU1 Not Detected (Not Detect); Coronavirus NL63 Not Detected (Not Detect); Coronavirus OC43 Not Detected (Not Detect); Human Metapneumovirus Not Detected (Not Detect); Human Rhinovirus/Enterovirus Not Detected (Not Detect); Influenza A Subtype 2009 H1 Not Detected (Not Detect); Influenza B Not Detected (Not Detect); Mycoplasma pneumoniae Not Detected (Not Detect); Parainfluenza Virus 1 Not Detected (Not Detect); Parainfluenza Virus 2 Not Detected (Not Detect); Parainfluenza Virus 3 Not Detected (Not Detect); Parainfluenza Virus 4 Not Detected (Not Detect); Respiratory Syncytial Virus Not Detected (Not Detect); SARS-CoV-2 Not Detected (Not Detect)
[2020-05-15 14:42] VITALS: BP 132/73
[2020-05-16 06:50] LABS: Fluid Source for Albumin PLEURAL
== END 2020-05-15 17:45 | DRG 870 ==
LOC: ICNU 19:14 → EMEROOARM 19:14 → SUATTDRO 21:53 → OBSVTOIN 21:53 → ICNU 21:56 → 2ANU 05-05 12:09
PROVIDERS: ADMIT Student in an Organized Health Care Education/Training Program; ATTEND Family Medicine
PROC: ENDOEBX (2020-05-11 12:30)

== ENCOUNTER 2020-06-29 10:15 | Observation (INO) ==
[2020-06-29 11:37] LABS: Basophils # 0.1 K/mcL (0.0-0.2); Basophils % 0.8 %; Eosinophils # 0.1 K/mcL (0.0-0.6); Eosinophils % 1.2 %; Hematocrit 37.3 % (35.3-44.9); Hemoglobin 11.3 g/dL (11.5-15.4); Immature Granulocytes % 0.4 % (0-4); Lymphocytes # 2.6 K/mcL (0.6-4.6); Lymphocytes % 34.5 %; Mean Corpuscular HGB Conc 30.3 g/dL (31.6-35.5); Mean Corpuscular Hemoglobin 29.9 pg (28.0-33.3); Mean Corpuscular Volume 98.7 fL (83.0-100.0); Mean Platelet Volume 10.9 fL (9.4-12.4); Monocytes # 0.8 K/mcL (0.0-1.3); Monocytes % 9.9 %; Neutrophils # 4.1 K/mcL (1.6-8.9); Platelet Count 207 K/mcL (140-400); Red Blood Count 3.78 M/mcL (3.82-4.97); Red Cell Distribution Width 20.3 % (11.5-14.5); Segmented Neutrophils % 53.2 %; White Blood Count 7.7 K/mcL (4.3-11.1)
[2020-06-29 11:48] LABS: Alanine Aminotransferase 24 Units/L (7-52); Albumin 3.2 g/dL (3.5-5.7); Albumin/Globulin Ratio 0.8 (1.1-2.2); Alkaline Phosphatase 119 Units/L (34-104); Aspartate Amino Transferase 40 Units/L (13-39); BUN/Creatinine Ratio 17 (6-26); Bilirubin,Direct 0.2 mg/dL (0.0-0.2); Bilirubin,Indirect 0.6 mg/dL (0.0-1.0); Bilirubin,Total 0.8 mg/dL (0.3-1.0); Blood Urea Nitrogen 14 mg/dL (8-23); Calcium 9.7 mg/dL (8.6-10.3); Carbon Dioxide 30 mEq/L (23-29); Chloride 101 mEq/L (98-107); Glucose 277 mg/dL (70-105); Magnesium 1.2 mg/dL (1.6-2.6); Osmolality,Calculated 294 (280-300); Sodium 137 mEq/L (136-145); Total Protein 7.2 g/dL (6.4-8.9); Troponin I 0.03 ng/mL (< 0.04); eGFR For African Americans > 60 (> 60); eGFR For Non-African Americans > 60 (> 60)
[2020-06-29 11:54] LABS: INR 1.1; Prothrombin Time 12.4 Seconds (9.4-12.1)
[2020-06-29 11:57] LABS: Activated Partial Thrombo Time 29.6 Seconds (26.0-36.0)
[2020-06-29 12:01] LABS: Thyroid Stimulating Hormone 2.598 mcIU/mL (0.340-5.600)
[2020-06-29 13:05] LABS: Bilirubin,Urine Negative (Negative); Blood,Urine Negative (Negative); Clarity,Urine Clear (Clear); Color,Urine Colorless (Yellow); Glucose,Urine (UA) Normal (Normal); Hyaline Casts,Urine Few per lpf (None Seen); Ketones,Urine Negative (Negative); Leukocyte Esterase,Urine Trace (Negative); Mucus,Urine Few per lpf (None-Few); Nitrite,Urine Negative (Negative); Protein,Urine Negative (Neg-Trace); RBC,Urine 0-3 per hpf (0-3); Specific Gravity,Urine 1.007 (1.010-1.025); Squamous Epithelial Cell,Urine Few per hpf (None-Few); Transitional Epi Cells,Urine Few per hpf (None-Few); Urobilinogen,Urine Normal (Normal)
[2020-06-29] MEDS ORDERED: Furosemide 40 MG/4 ML VIAL IVP ONE (13:28)
[2020-06-29] MEDS ORDERED: Naloxone 0.4 MG/ML INJ IVP PRN (14:10)
[2020-06-29] MEDS ORDERED: *HR* Metoprolol 5 MG/5 ML VIAL IVP ONE (15:59)
[2020-06-29] MEDS ORDERED: D5% in Water 1,000 ML IVC PRN (17:37)
[2020-06-29] MEDS ORDERED: Dextrose Gel 15 GM/37.5 ML TUBE PO PRN ×2 (17:37)
[2020-06-29] MEDS ORDERED: *HR* Dextrose 50 % in Water (Vial) 50 ML VIAL IVP PRN (17:37)
[2020-06-29] MEDS: Insulin LISPRO 300 UNITS/3 ML VIAL SUBQ SCH (19:50)
[2020-06-29] MEDS: Gabapentin 300 MG CAPSULE PO SCH (19:56)
[2020-06-29] MEDS: Magnesium Oxide 400 MG TABLET PO SCH (20:01)
[2020-06-29] MEDS: Sucralfate 1 GM TABLET PO SCH (20:15)
[2020-06-30 02:23] LABS: Basophils % 0.6 %; Eosinophils # 0.1 K/mcL (0.0-0.6); Eosinophils % 1.9 %; Hematocrit 31.1 % (35.3-44.9); Hemoglobin 9.8 g/dL (11.5-15.4); Immature Granulocytes % 0.1 % (0-4); Lymphocytes # 3.1 K/mcL (0.6-4.6); Lymphocytes % 43.4 %; Mean Corpuscular HGB Conc 31.5 g/dL (31.6-35.5); Mean Corpuscular Volume 98.4 fL (83.0-100.0); Mean Platelet Volume 11.1 fL (9.4-12.4); Monocytes # 0.8 K/mcL (0.0-1.3); Monocytes % 10.7 %; Neutrophils # 3.1 K/mcL (1.6-8.9); Platelet Count 174 K/mcL (140-400); Red Blood Count 3.16 M/mcL (3.82-4.97); Red Cell Distribution Width 20.1 % (11.5-14.5); Segmented Neutrophils % 43.3 %; White Blood Count 7.2 K/mcL (4.3-11.1)
[2020-06-30 02:40] LABS: BUN/Creatinine Ratio 18 (6-26); Blood Urea Nitrogen 15 mg/dL (8-23); Calcium 8.7 mg/dL (8.6-10.3); Carbon Dioxide 29 mEq/L (23-29); Chloride 103 mEq/L (98-107); Glucose 179 mg/dL (70-105); Osmolality,Calculated 291 (280-300); Potassium 3.5 mEq/L (3.5-5.1); Sodium 138 mEq/L (136-145); eGFR For African Americans > 60 (> 60); eGFR For Non-African Americans > 60 (> 60)
[2020-06-30] MEDS: Sucralfate 1 GM TABLET PO SCH ×4 (06:57→20:47)
[2020-06-30] MEDS: Aspirin Enteric Coated 81 MG Tablet PO SCH (07:55)
[2020-06-30] MEDS: Metoprolol XL (24 HR) Succ 50 MG TAB.ER.24H PO SCH (07:55)
[2020-06-30] MEDS: Gabapentin 300 MG CAPSULE PO SCH ×3 (07:56→20:48)
[2020-06-30] MEDS: Loratadine 10 MG TABLET PO SCH (07:56)
[2020-06-30] MEDS: Magnesium Oxide 400 MG TABLET PO SCH ×2 (07:56→20:47)
[2020-06-30] MEDS: Insulin LISPRO 300 UNITS/3 ML VIAL SUBQ SCH ×4 (07:57→20:49)
[2020-06-30] MEDS: Insulin DETEMIR 100 UNIT/ML X5UNITS SUBQ SCH (07:57)
[2020-06-30] MEDS ORDERED: Furosemide 40 MG TABLET PO SCH (08:30)
[2020-06-30] MEDS ORDERED: [UNRECOGNIZED DRUG - OTHER] PO SCH (09:00)
[2020-06-30] MEDS: *HR* Heparin 5,000 UNIT/ML VIAL SQ SCH ×2 (13:34→20:48)
[2020-06-30] MEDS: DilTIAZem CD (24hr) 120 MG CAP.ER.24H PO SCH (13:34)
[2020-06-30] MEDS: Furosemide 40 MG/4 ML VIAL IVP SCH (17:02)
[2020-07-01 02:00] LABS: Basophils # 0.1 K/mcL (0.0-0.2); Basophils % 0.8 %; Eosinophils # 0.2 K/mcL (0.0-0.6); Eosinophils % 2.5 %; Hematocrit 32.3 % (35.3-44.9); Hemoglobin 9.9 g/dL (11.5-15.4); Immature Granulocytes % 0.1 % (0-4); Lymphocytes # 3.4 K/mcL (0.6-4.6); Lymphocytes % 44.5 %; Mean Corpuscular HGB Conc 30.7 g/dL (31.6-35.5); Mean Corpuscular Hemoglobin 29.6 pg (28.0-33.3); Mean Corpuscular Volume 96.4 fL (83.0-100.0); Mean Platelet Volume 10.7 fL (9.4-12.4); Monocytes # 0.8 K/mcL (0.0-1.3); Monocytes % 9.8 %; Neutrophils # 3.2 K/mcL (1.6-8.9); Platelet Count 192 K/mcL (140-400); Red Blood Count 3.35 M/mcL (3.82-4.97); Red Cell Distribution Width 19.9 % (11.5-14.5); Segmented Neutrophils % 42.3 %; White Blood Count 7.6 K/mcL (4.3-11.1)
[2020-07-01 02:20] LABS: BUN/Creatinine Ratio 19 (6-26); Blood Urea Nitrogen 16 mg/dL (8-23); Calcium 9.3 mg/dL (8.6-10.3); Carbon Dioxide 29 mEq/L (23-29); Chloride 102 mEq/L (98-107); Glucose 187 mg/dL (70-105); Osmolality,Calculated 294 (280-300); Sodium 139 mEq/L (136-145); eGFR For African Americans > 60 (> 60); eGFR For Non-African Americans > 60 (> 60)
[2020-07-01] MEDS: *HR* Heparin 5,000 UNIT/ML VIAL SQ SCH ×2 (05:23→15:11)
[2020-07-01] MEDS: Insulin DETEMIR 100 UNIT/ML X5UNITS SUBQ SCH (08:43)
[2020-07-01] MEDS: DilTIAZem CD (24hr) 120 MG CAP.ER.24H PO SCH (08:44)
[2020-07-01] MEDS: Aspirin Enteric Coated 81 MG Tablet PO SCH (08:45)
[2020-07-01] MEDS: Loratadine 10 MG TABLET PO SCH (08:45)
[2020-07-01] MEDS: Gabapentin 300 MG CAPSULE PO SCH ×2 (08:45→15:11)
[2020-07-01] MEDS: Metoprolol XL (24 HR) Succ 50 MG TAB.ER.24H PO SCH (08:46)
[2020-07-01] MEDS: Insulin LISPRO 300 UNITS/3 ML VIAL SUBQ SCH ×2 (08:48→12:02)
[2020-07-01] MEDS: Furosemide 40 MG/4 ML VIAL IVP SCH (08:49)
[2020-07-01] MEDS: Sucralfate 1 GM TABLET PO SCH ×2 (08:49→12:04)
[2020-07-01] MEDS ORDERED: Cyanocobalamin (B-12) 1,000 MCG TABLET PO SCH (09:00)
[2020-07-01] MEDS ORDERED: Pyridoxine (B-6) 50 MG TABLET PO SCH (09:00)
[2020-07-01 09:02] LABS: Magnesium 1.4 mg/dL (1.6-2.6)
[2020-07-01] MEDS: Magnesium Oxide 400 MG TABLET PO SCH (12:03)
[2020-07-01 16:11] VITALS: BP 125/69
[2020-07-01] MEDS ORDERED: Furosemide 40 MG TABLET PO SCH (17:00)
== END 2020-07-01 18:19 | disposition home or self-care (01) ==
LOC: EMEROOARM 10:15 → 2ANU 10:15
PROVIDERS: ADMIT Internal Medicine; ATTEND Internal Medicine

== ENCOUNTER 2021-03-14 06:13 | Inpatient (IN) ==
[2021-03-14] MEDS ORDERED: NiCARdipine 2.5 MG/10 ML Syringe IVPB ONE (06:35)
[2021-03-14] MEDS ORDERED: *HR* Midazolam HCl 5 MG/5 ML VIAL IVP ONE ×2 (06:40→11:16)
[2021-03-14] MEDS ORDERED: *HR* FentaNYL (PF) 250 MCG/5 ML VIAL ONE ×2 (06:41→11:16)
[2021-03-14] MEDS ORDERED: *HR* Rocuronium Bromide 50 MG/5 ML VIAL ONE ×2 (06:42→11:16)
[2021-03-14] MEDS ORDERED: Famotidine 20 MG/2 ML VIAL ONE (06:43)
[2021-03-14] MEDS ORDERED: *HR* Etomidate 20 MG/10 ML AMPUL IVP ONE (06:43)
[2021-03-14] MEDS ORDERED: Ringers Solution, Lactated 1,000 ML IVC SCH (06:45)
[2021-03-14] MEDS ORDERED: Protamine Sulfate 250 MG/25 ML VIAL IVP ONE (06:45)
[2021-03-14] MEDS ORDERED: Calcium Gluconate 1,000 MG/10 ML VIAL ONE (06:45)
[2021-03-14] MEDS ORDERED: Tranexamic Acid 1,000 MG/10 ML VIAL ONE ×2 (06:45→10:28)
[2021-03-14] MEDS ORDERED: Chlorhexidine Rinse 15 ML MOUTHWASH MM ONE (06:47)
[2021-03-14] MEDS ORDERED: Aspirin 81 MG TAB.CHEW PO ONE (06:53)
[2021-03-14] MEDS ORDERED: Norepinephrine 4 MG in 0.9 % Sodium Chloride 250 ML IVC PRN (07:45)
[2021-03-14] MEDS ORDERED: Dextrose 50 % in Water (Vial) 30 ML, Sodium Bicarbonate 20 MEQ, Lidocaine 1% 5 ML, Insu... TH ONE ×3 (07:45)
[2021-03-14] MEDS ORDERED: Heparin 15,000 UNIT in 0.9 % Sodium Chloride 500 ML IV ONE (07:45)
[2021-03-14] MEDS ORDERED: Dextrose 50 % in Water (Vial) 30 ML, Sodium Bicarbonate 20 MEQ, Potassium Chloride 15 M... TH ONE (07:45)
[2021-03-14 08:13] LABS: ABG Base Excess 3 mEq/L (-2 to 3); ABG Chloride 103 mEq/L (98-107); ABG Glucose 89 mg/dL (60-95); ABG HCO3 30 mEq/L (21-27); ABG Ionized Calcium 1.23 mmol/L (1.15-1.35); ABG Oxygen Saturation 100 % (95-98); ABG PCO2 54 mmHg (35-45); ABG PH 7.36 pH Units (7.32-7.45); ABG PO2 190 mmHg (85-104); ABG TCO2 32 mEq/L (20-26)
[2021-03-14] MEDS: CeFAZolin Syr 2,000MG/20 ML 2,000 MG/20 ML SYRINGE IVPB ONE ×2 (08:15→09:15)
[2021-03-14 10:08] LABS: ABG Base Excess 4 mEq/L (-2 to 3); ABG Chloride 104 mEq/L (98-107); ABG Glucose 86 mg/dL (60-95); ABG HCO3 28 mEq/L (21-27); ABG Ionized Calcium 1.22 mmol/L (1.15-1.35); ABG Oxygen Saturation 99 % (95-98); ABG PCO2 41 mmHg (35-45); ABG PH 7.45 pH Units (7.32-7.45); ABG PO2 139 mmHg (85-104); ABG TCO2 30 mEq/L (20-26)
[2021-03-14 10:50] LABS: ABG Base Excess 4 mEq/L (-2 to 3); ABG Chloride 102 mEq/L (98-107); ABG Glucose 170 mg/dL (60-95); ABG HCO3 28 mEq/L (21-27); ABG Ionized Calcium 0.99 mmol/L (1.15-1.35); ABG Oxygen Saturation 100 % (95-98); ABG PCO2 36 mmHg (35-45); ABG PH 7.49 pH Units (7.32-7.45); ABG PO2 627 mmHg (85-104); ABG TCO2 29 mEq/L (20-26)
[2021-03-14 11:26] LABS: ABG Base Excess 4 mEq/L (-2 to 3); ABG Chloride 103 mEq/L (98-107); ABG Glucose 110 mg/dL (60-95); ABG HCO3 28 mEq/L (21-27); ABG Ionized Calcium 1.11 mmol/L (1.15-1.35); ABG Oxygen Saturation 100 % (95-98); ABG PCO2 40 mmHg (35-45); ABG PH 7.45 pH Units (7.32-7.45); ABG PO2 455 mmHg (85-104); ABG TCO2 29 mEq/L (20-26)
[2021-03-14] MEDS ORDERED: Protamine Sulfate 50 MG/5 ML VIAL IVP ONE (11:41)
[2021-03-14 11:57] LABS: ABG Base Excess 2 mEq/L (-2 to 3); ABG Chloride 103 mEq/L (98-107); ABG Glucose 81 mg/dL (60-95); ABG HCO3 26 mEq/L (21-27); ABG Ionized Calcium 1.47 mmol/L (1.15-1.35); ABG Oxygen Saturation 100 % (95-98); ABG PCO2 39 mmHg (35-45); ABG PH 7.43 pH Units (7.32-7.45); ABG PO2 167 mmHg (85-104); ABG TCO2 27 mEq/L (20-26)
[2021-03-14] MEDS ORDERED: *HR* Dextrose 50 % in Water (Syg) 50 ML SYRINGE IVP PRN (12:07)
[2021-03-14] MEDS ORDERED: Insulin Regular, Human 100 UNIT/ML IV PRN (12:07)
[2021-03-14] MEDS ORDERED: Acetaminophen 650 MG RECTAL SUPP RC PRN (12:07)
[2021-03-14] MEDS ORDERED: Calcium Gluconate 1gm/50mL 1 GM/50 ML BAG IVPB PRN (12:07)
[2021-03-14] MEDS ORDERED: Potassium Chloride 40 MEQ/200 ML BAG IVPB PRN (12:07)
[2021-03-14] MEDS ORDERED: Norepinephrine 4 MG/254 ML IV.SOLN IVC SCH (12:15)
[2021-03-14] MEDS ORDERED: niCARdipine 20 MG/200 ML MLS IVC SCH (12:15)
[2021-03-14] MEDS ORDERED: 0.9 % Sodium Chloride w KCl 20 MEQ/1,000 ML MLS IVC SCH (12:15)
[2021-03-14 13:45] LABS: Basophils % 0.6 %; Hemoglobin 10.6 g/dL (11.5-15.4)
[2021-03-14 13:47] LABS: Basophils # 0.1 K/mcL (0.0-0.2); Eosinophils # 0.3 K/mcL (0.0-0.6); Hematocrit 33.3 % (35.3-44.9); Immature Granulocytes % 0.8 % (0-4); Lymphocytes # 2.8 K/mcL (0.6-4.6); Lymphocytes % 19.4 %; Mean Corpuscular HGB Conc 31.8 g/dL (31.6-35.5); Mean Corpuscular Hemoglobin 32.6 pg (28.0-33.3); Mean Corpuscular Volume 102.5 fL (83.0-100.0); Mean Platelet Volume 10.7 fL (9.4-12.4); Monocytes # 0.8 K/mcL (0.0-1.3); Monocytes % 5.8 %; Neutrophils # 10.1 K/mcL (1.6-8.9); Platelet Count 104 K/mcL (140-400); Red Blood Count 3.25 M/mcL (3.82-4.97); Red Cell Distribution Width 13.9 % (11.5-14.5); Segmented Neutrophils % 71.4 %; White Blood Count 14.2 K/mcL (4.3-11.1)
[2021-03-14 13:54] LABS: INR 1.3
[2021-03-14 13:57] LABS: Activated Partial Thrombo Time 34.6 Seconds (26.0-36.0); BUN/Creatinine Ratio 23 (6-26); Blood Urea Nitrogen 19 mg/dL (8-23); Calcium 9.3 mg/dL (8.6-10.3); Carbon Dioxide 31 mEq/L (23-29); Chloride 108 mEq/L (98-107); Glucose 103 mg/dL (70-105); Magnesium 1.9 mg/dL (1.6-2.6); Osmolality,Calculated 297 (280-300); Potassium 3.7 mEq/L (3.5-5.1); Sodium 142 mEq/L (136-145); eGFR For African Americans > 60 (> 60); eGFR For Non-African Americans > 60 (> 60)
[2021-03-14 14:00] LABS: Prothrombin Time 14.1 Seconds (9.4-12.1)
[2021-03-14] MEDS: Pantoprazole 40 MG VIAL IVP SCH (14:05)
[2021-03-14 14:22] LABS: ABG Base Excess 1 mEq/L (-2 to 3); ABG HCO3 27 mEq/L (21-27); ABG Oxygen Saturation 87 % (95-98); ABG PCO2 54 mmHg (35-45); ABG PH 7.31 pH Units (7.32-7.45); ABG PO2 59 mmHg (85-104); ABG TCO2 29 mEq/L (20-26); Blood Gas Modality ASSIST CONTROL; Blood Gas VT 490 cc
[2021-03-14] MEDS ORDERED: *HR* Heparin 10,000 UNIT/10 ML VIAL IR ONE (14:22)
[2021-03-14] MEDS ORDERED: *HR* Magnesium Sulfate 2 GM/50 ML PIGGYBACK IVPB ONE (14:22)
[2021-03-14] MEDS ORDERED: Tranexamic Acid 1,000 MG/10 ML VIAL IR ONE (14:22)
[2021-03-14] MEDS ORDERED: Albumin Human 25% 25 GM/100 ML IV.SOLN IVPB ONE (14:22)
[2021-03-14] MEDS ORDERED: Lidocaine 2% Syringe 100 MG/5 ML IVP ONE (14:22)
[2021-03-14] MEDS ORDERED: *HR* Phenylephrine 10 MG/ML VIAL IVC ONE (14:22)
[2021-03-14] MEDS ORDERED: Mannitol 20% 100 GM/500 ML IV.SOLN IVC ONE (14:22)
[2021-03-14] MEDS: Albumin Human 5% 12.5 GM/250 ML IV.SOLN IVPB PRN ×3 (14:26→16:40)
[2021-03-14] MEDS: CeFAZolin 2 GM/120 ML BAG IVPB SCH ×2 (15:48→23:32)
[2021-03-14 16:16] LABS: ABG Base Excess 2 mEq/L (-2 to 3); ABG HCO3 26 mEq/L (21-27); ABG Oxygen Saturation 99 % (95-98); ABG PCO2 36 mmHg (35-45); ABG PH 7.46 pH Units (7.32-7.45); ABG PO2 139 mmHg (85-104); ABG TCO2 27 mEq/L (20-26); Blood Gas Modality ASSIST CONTROL; Blood Gas VT 490 cc
[2021-03-14] MEDS: *HR* FentaNYL (PF) 100 MCG/2 ML VIAL IVP PRN (17:20)
[2021-03-14] MEDS: *HR* OxyCODONE/APAP 5/325 TABLET PO PRN (17:20)
[2021-03-14 23:31] LABS: ABG Base Excess 1 mEq/L (-2 to 3); ABG HCO3 27 mEq/L (21-27); ABG Oxygen Saturation 99 % (95-98); ABG PCO2 48 mmHg (35-45); ABG PH 7.36 pH Units (7.32-7.45); ABG PO2 121 mmHg (85-104); ABG TCO2 28 mEq/L (20-26); Blood Gas Pressure Support 15 cm H2O
[2021-03-15] MEDS: *HR* FentaNYL (PF) 100 MCG/2 ML VIAL IVP PRN (00:11)
[2021-03-15] MEDS: Chlorhexidine Rinse 15 ML MOUTHWASH MM SCH ×3 (00:21→20:03)
[2021-03-15 00:32] LABS: ABG Base Excess -1 mEq/L (-2 to 3); ABG HCO3 26 mEq/L (21-27); ABG Oxygen Saturation 97 % (95-98); ABG PCO2 48 mmHg (35-45); ABG PH 7.33 pH Units (7.32-7.45); ABG PO2 95 mmHg (85-104); ABG TCO2 27 mEq/L (20-26)
[2021-03-15] MEDS: *HR* OxyCODONE/APAP 5/325 TABLET PO PRN ×3 (03:21→16:01)
[2021-03-15 04:27] LABS: INR 1.2
[2021-03-15 04:28] LABS: Activated Partial Thrombo Time 29.6 Seconds (26.0-36.0)
[2021-03-15 04:36] LABS: Calcium 8.9 mg/dL (8.6-10.3); Potassium 4.7 mEq/L (3.5-5.1)
[2021-03-15 05:19] LABS: Basophils # 0.1 K/mcL (0.0-0.2); Basophils % 0.7 %; Eosinophils % 0.2 %; Immature Granulocytes % 0.3 % (0-4); Lymphocytes # 3.6 K/mcL (0.6-4.6); Lymphocytes % 26.4 %; Mean Corpuscular HGB Conc 31.8 g/dL (31.6-35.5); Mean Corpuscular Hemoglobin 32.5 pg (28.0-33.3); Mean Corpuscular Volume 102.2 fL (83.0-100.0); Mean Platelet Volume 11.5 fL (9.4-12.4); Monocytes # 1.2 K/mcL (0.0-1.3); Monocytes % 9.1 %; Neutrophils # 8.6 K/mcL (1.6-8.9); Platelet Count 114 K/mcL (140-400); Red Blood Count 2.74 M/mcL (3.82-4.97); Red Cell Distribution Width 14.6 % (11.5-14.5); Segmented Neutrophils % 63.3 %; White Blood Count 13.6 K/mcL (4.3-11.1)
[2021-03-15 05:23] LABS: Hemoglobin 8.9 g/dL (11.5-15.4)
[2021-03-15] MEDS ORDERED: *HR* Dextrose 50 % in Water (Syg) 50 ML SYRINGE IVP PRN (07:56)
[2021-03-15] MEDS ORDERED: D5% in Water 1,000 ML IVC PRN (07:56)
[2021-03-15] MEDS ORDERED: Dextrose Gel 15 GM/37.5 ML TUBE PO PRN ×2 (07:56)
[2021-03-15] MEDS: Furosemide 20 MG/2 ML VIAL IVP SCH ×2 (09:15→20:03)
[2021-03-15] MEDS: Pantoprazole 40 MG VIAL IVP SCH (09:15)
[2021-03-15] MEDS: Aspirin Enteric Coated 81 MG Tablet PO SCH (09:15)
[2021-03-15] MEDS: *HR* Heparin 5,000 UNIT/ML VIAL SQ SCH ×2 (09:17→18:57)
[2021-03-15] MEDS: Acetaminophen 325 MG TABLET PO PRN (12:07)
[2021-03-15] MEDS: Insulin LISPRO 300 UNITS/3 ML VIAL SUBQ SCH ×3 (12:54→20:18)
[2021-03-15] MEDS: Loratadine 10 MG TABLET PO SCH (16:01)
[2021-03-15] MEDS: Sucralfate 1 GM TABLET PO SCH ×2 (16:01→23:37)
[2021-03-16] MEDS: *HR* OxyCODONE/APAP 5/325 TABLET PO PRN ×3 (01:11→20:36)
[2021-03-16] MEDS: Acetaminophen 325 MG TABLET PO PRN (04:13)
[2021-03-16 04:39] LABS: Basophils % 0.5 %; Hematocrit 23.1 % (35.3-44.9); Hemoglobin 7.4 g/dL (11.5-15.4); Monocytes % 11.7 %; Red Cell Distribution Width 14.7 % (11.5-14.5)
[2021-03-16 04:41] LABS: Basophils # 0.1 K/mcL (0.0-0.2); Eosinophils # 0.1 K/mcL (0.0-0.6); Eosinophils % 0.5 %; Immature Granulocytes % 0.4 % (0-4); Immature Platelets 6.9 % (1.1-6.1); Lymphocytes # 3.6 K/mcL (0.6-4.6); Lymphocytes % 31.3 %; Mean Corpuscular Volume 103.1 fL (83.0-100.0); Mean Platelet Volume 11.7 fL (9.4-12.4); Monocytes # 1.4 K/mcL (0.0-1.3); Neutrophils # 6.5 K/mcL (1.6-8.9); Nucleated Red Blood Cells 0.2 /100 WBC (0); Red Blood Count 2.24 M/mcL (3.82-4.97); Segmented Neutrophils % 55.6 %; White Blood Count 11.6 K/mcL (4.3-11.1)
[2021-03-16 04:59] LABS: Potassium 4.6 mEq/L (3.5-5.1)
[2021-03-16] MEDS: *HR* Heparin 5,000 UNIT/ML VIAL SQ SCH ×2 (05:04→16:42)
[2021-03-16 05:14] LABS: Platelet Count 98 K/mcL (140-400)
[2021-03-16 05:16] LABS: Platelet Estimate Decreased (Normal)
[2021-03-16] MEDS: Chlorhexidine Rinse 15 ML MOUTHWASH MM SCH ×2 (08:33→20:34)
[2021-03-16] MEDS: Loratadine 10 MG TABLET PO SCH (08:33)
[2021-03-16] MEDS: Furosemide 20 MG/2 ML VIAL IVP SCH ×2 (08:33→20:34)
[2021-03-16] MEDS: Aspirin Enteric Coated 81 MG Tablet PO SCH (08:33)
[2021-03-16] MEDS: Sucralfate 1 GM TABLET PO SCH ×3 (08:33→20:36)
[2021-03-16] MEDS: Pantoprazole 40 MG VIAL IVP SCH (08:34)
[2021-03-16] MEDS: Insulin LISPRO 300 UNITS/3 ML VIAL SUBQ SCH ×4 (08:52→20:37)
[2021-03-17] MEDS: *HR* Heparin 5,000 UNIT/ML VIAL SQ SCH ×2 (05:41→17:02)
[2021-03-17] MEDS: *HR* OxyCODONE/APAP 5/325 TABLET PO PRN ×3 (05:42→21:12)
[2021-03-17] MEDS: Chlorhexidine Rinse 15 ML MOUTHWASH MM SCH ×2 (08:16→21:11)
[2021-03-17] MEDS: Pantoprazole 40 MG VIAL IVP SCH (08:16)
[2021-03-17] MEDS: Loratadine 10 MG TABLET PO SCH (08:16)
[2021-03-17] MEDS: Furosemide 20 MG/2 ML VIAL IVP SCH ×2 (08:16→21:12)
[2021-03-17] MEDS: Aspirin Enteric Coated 81 MG Tablet PO SCH (08:17)
[2021-03-17] MEDS: Sucralfate 1 GM TABLET PO SCH ×4 (08:17→21:11)
[2021-03-17] MEDS: Insulin LISPRO 300 UNITS/3 ML VIAL SUBQ SCH ×4 (08:17→21:13)
[2021-03-17 10:19] LABS: Basophils % 0.2 %; Eosinophils # 0.1 K/mcL (0.0-0.6); Eosinophils % 1.1 %; Hematocrit 22.1 % (35.3-44.9); Hemoglobin 7.1 g/dL (11.5-15.4); Immature Granulocytes % 0.5 % (0-4); Lymphocytes # 1.7 K/mcL (0.6-4.6); Lymphocytes % 18.4 %; Mean Corpuscular HGB Conc 32.1 g/dL (31.6-35.5); Mean Corpuscular Hemoglobin 33.5 pg (28.0-33.3); Mean Corpuscular Volume 104.2 fL (83.0-100.0); Mean Platelet Volume 11.9 fL (9.4-12.4); Monocytes # 0.9 K/mcL (0.0-1.3); Monocytes % 9.8 %; Neutrophils # 6.4 K/mcL (1.6-8.9); Platelet Count 106 K/mcL (140-400); Red Blood Count 2.12 M/mcL (3.82-4.97); Red Cell Distribution Width 14.6 % (11.5-14.5); White Blood Count 9.1 K/mcL (4.3-11.1)
[2021-03-17 12:11] LABS: Calcium 7.5 mg/dL (8.6-10.3); Potassium 4.5 mEq/L (3.5-5.1)
[2021-03-17] MEDS: Acetaminophen 325 MG TABLET PO PRN (16:22)
[2021-03-17] MEDS ORDERED: 0.9 % Sodium Chloride 250 ML IVC SCH (19:30)
[2021-03-18 01:27] LABS: Basophils % 0.4 %; Eosinophils # 0.2 K/mcL (0.0-0.6); Eosinophils % 2.2 %; Hematocrit 21.2 % (35.3-44.9); Immature Granulocytes % 0.6 % (0-4); Lymphocytes % 27.4 %; Mean Corpuscular Volume 102.9 fL (83.0-100.0); Mean Platelet Volume 11.4 fL (9.4-12.4); Monocytes # 1.4 K/mcL (0.0-1.3); Monocytes % 12.9 %; Neutrophils # 6.1 K/mcL (1.6-8.9); Nucleated Red Blood Cells 0.4 /100 WBC (0); Platelet Count 128 K/mcL (140-400); Red Blood Count 2.06 M/mcL (3.82-4.97); Red Cell Distribution Width 14.7 % (11.5-14.5); Segmented Neutrophils % 56.5 %; White Blood Count 10.8 K/mcL (4.3-11.1)
[2021-03-18 01:45] LABS: Potassium 4.1 mEq/L (3.5-5.1)
[2021-03-18] MEDS: *HR* OxyCODONE/APAP 5/325 TABLET PO PRN ×2 (01:57→20:48)
[2021-03-18] MEDS ORDERED: 0.9 % Sodium Chloride 250 ML ONE (02:14)
[2021-03-18] MEDS: *HR* Heparin 5,000 UNIT/ML VIAL SQ SCH (05:51)
[2021-03-18] MEDS: Sucralfate 1 GM TABLET PO SCH ×5 (07:56→20:47)
[2021-03-18] MEDS: Loratadine 10 MG TABLET PO SCH (07:56)
[2021-03-18] MEDS: Acetaminophen 325 MG TABLET PO PRN ×2 (07:56→16:20)
[2021-03-18] MEDS: Pantoprazole 40 MG VIAL IVP SCH (07:57)
[2021-03-18] MEDS: Chlorhexidine Rinse 15 ML MOUTHWASH MM SCH (07:57)
[2021-03-18] MEDS: Aspirin Enteric Coated 81 MG Tablet PO SCH (07:57)
[2021-03-18] MEDS: Insulin LISPRO 300 UNITS/3 ML VIAL SUBQ SCH ×4 (08:00→20:58)
[2021-03-18 08:40] LABS: Basophils # 0.1 K/mcL (0.0-0.2); Basophils % 0.5 %; Eosinophils # 0.3 K/mcL (0.0-0.6); Eosinophils % 2.5 %; Hematocrit 26.2 % (35.3-44.9); Hemoglobin 8.5 g/dL (11.5-15.4); Immature Granulocytes % 0.3 % (0-4); Lymphocytes # 3.5 K/mcL (0.6-4.6); Lymphocytes % 33.4 %; Mean Corpuscular HGB Conc 32.4 g/dL (31.6-35.5); Mean Corpuscular Hemoglobin 33.1 pg (28.0-33.3); Mean Corpuscular Volume 101.9 fL (83.0-100.0); Mean Platelet Volume 11.3 fL (9.4-12.4); Monocytes # 1.2 K/mcL (0.0-1.3); Monocytes % 11.7 %; Neutrophils # 5.4 K/mcL (1.6-8.9); Nucleated Red Blood Cells 0.2 /100 WBC (0); Platelet Count 132 K/mcL (140-400); Red Blood Count 2.57 M/mcL (3.82-4.97); Red Cell Distribution Width 15.5 % (11.5-14.5); Segmented Neutrophils % 51.6 %; White Blood Count 10.4 K/mcL (4.3-11.1)
[2021-03-18 08:55] LABS: Calcium 8.5 mg/dL (8.6-10.3); Potassium 4.2 mEq/L (3.5-5.1)
[2021-03-18] MEDS: Sennosides/Docusate Sodium TABLET PO SCH ×2 (10:16→20:48)
[2021-03-18] MEDS: Famotidine 20 MG TABLET PO SCH (20:48)
[2021-03-19] MEDS: Loratadine 10 MG TABLET PO SCH (07:18)
[2021-03-19] MEDS: Acetaminophen 325 MG TABLET PO PRN ×2 (07:18→15:40)
[2021-03-19] MEDS: Famotidine 20 MG TABLET PO SCH ×2 (07:18→19:48)
[2021-03-19] MEDS: Sucralfate 1 GM TABLET PO SCH ×4 (07:18→19:48)
[2021-03-19] MEDS: Aspirin Enteric Coated 81 MG Tablet PO SCH (07:18)
[2021-03-19] MEDS: Insulin LISPRO 300 UNITS/3 ML VIAL SUBQ SCH ×4 (07:18→19:47)
[2021-03-19] MEDS: Sennosides/Docusate Sodium TABLET PO SCH ×2 (07:19→19:48)
[2021-03-19] MEDS ORDERED: Furosemide 40 MG/4 ML VIAL IVP ONE (09:35)
[2021-03-19] MEDS ORDERED: Insulin LISPRO 300 UNITS/3 ML VIAL SUBQ ONE (11:48)
[2021-03-19] MEDS: *HR* OxyCODONE/APAP 5/325 TABLET PO PRN (19:48)
[2021-03-19] MEDS: Insulin DETEMIR 100 UNIT/ML X5UNITS SUBQ SCH (20:00)
[2021-03-20 04:31] LABS: Hematocrit 24.7 % (35.3-44.9); Hemoglobin 8.2 g/dL (11.5-15.4); Mean Corpuscular HGB Conc 33.2 g/dL (31.6-35.5); Mean Corpuscular Volume 102.5 fL (83.0-100.0); Mean Platelet Volume 10.7 fL (9.4-12.4); Platelet Count 162 K/mcL (140-400); Red Blood Count 2.41 M/mcL (3.82-4.97); White Blood Count 7.9 K/mcL (4.3-11.1)
[2021-03-20 04:50] LABS: BUN/Creatinine Ratio 54 (6-26); Blood Urea Nitrogen 45 mg/dL (8-23); Calcium 8.4 mg/dL (8.6-10.3); Carbon Dioxide 30 mEq/L (23-29); Chloride 104 mEq/L (98-107); Glucose 121 mg/dL (70-105); Magnesium 1.7 mg/dL (1.6-2.6); Osmolality,Calculated 299 (280-300); Potassium 3.7 mEq/L (3.5-5.1); Sodium 138 mEq/L (136-145); eGFR For African Americans > 60 (> 60); eGFR For Non-African Americans > 60 (> 60)
[2021-03-20] MEDS: Insulin LISPRO 300 UNITS/3 ML VIAL SUBQ SCH ×4 (08:12→20:18)
[2021-03-20] MEDS: Famotidine 20 MG TABLET PO SCH ×2 (08:19→20:17)
[2021-03-20] MEDS: Loratadine 10 MG TABLET PO SCH (08:19)
[2021-03-20] MEDS: Sennosides/Docusate Sodium TABLET PO SCH ×2 (08:19→20:17)
[2021-03-20] MEDS: Sucralfate 1 GM TABLET PO SCH (08:19)
[2021-03-20] MEDS: Aspirin Enteric Coated 81 MG Tablet PO SCH (08:19)
[2021-03-20] MEDS ORDERED: Amiodarone Premix 150 MG/100 ML BAG IVPB ONE (08:47)
[2021-03-20] MEDS ORDERED: Amiodarone Premix 360 MG/200 ML BAG IVC ONE (08:47)
[2021-03-20] MEDS: *HR* OxyCODONE/APAP 5/325 TABLET PO PRN ×2 (12:15→20:26)
[2021-03-20] MEDS: Amiodarone Premix 360 MG/200 ML BAG IVC SCH (15:09)
[2021-03-20] MEDS: Insulin DETEMIR 100 UNIT/ML X5UNITS SUBQ SCH (20:18)
[2021-03-21] MEDS: Amiodarone Premix 360 MG/200 ML BAG IVC SCH ×2 (01:27→19:42)
[2021-03-21 04:57] LABS: Basophils # 0.1 K/mcL (0.0-0.2); Basophils % 0.5 %; Eosinophils # 0.3 K/mcL (0.0-0.6); Eosinophils % 2.3 %; Hematocrit 26.1 % (35.3-44.9); Hemoglobin 8.4 g/dL (11.5-15.4); Immature Granulocytes % 0.5 % (0-4); Lymphocytes # 3.5 K/mcL (0.6-4.6); Lymphocytes % 31.5 %; Mean Corpuscular HGB Conc 32.2 g/dL (31.6-35.5); Mean Corpuscular Hemoglobin 32.7 pg (28.0-33.3); Mean Corpuscular Volume 101.6 fL (83.0-100.0); Mean Platelet Volume 10.3 fL (9.4-12.4); Monocytes # 1.3 K/mcL (0.0-1.3); Monocytes % 11.9 %; Neutrophils # 5.8 K/mcL (1.6-8.9); Nucleated Red Blood Cells 0.2 /100 WBC (0); Platelet Count 174 K/mcL (140-400); Red Blood Count 2.57 M/mcL (3.82-4.97); Red Cell Distribution Width 16.4 % (11.5-14.5); Segmented Neutrophils % 53.3 %
[2021-03-21 05:06] LABS: Calcium 8.5 mg/dL (8.6-10.3); Potassium 3.9 mEq/L (3.5-5.1)
[2021-03-21] MEDS: Aspirin Enteric Coated 81 MG Tablet PO SCH (07:56)
[2021-03-21] MEDS: Loratadine 10 MG TABLET PO SCH (07:56)
[2021-03-21] MEDS: Famotidine 20 MG TABLET PO SCH ×2 (07:56→20:37)
[2021-03-21] MEDS: Insulin LISPRO 300 UNITS/3 ML VIAL SUBQ SCH ×4 (07:56→20:38)
[2021-03-21] MEDS: Sennosides/Docusate Sodium TABLET PO SCH ×2 (07:57→20:38)
[2021-03-21] MEDS: *HR* OxyCODONE/APAP 5/325 TABLET PO PRN ×2 (08:00→17:30)
[2021-03-21] MEDS: Furosemide 20 MG/2 ML VIAL IVP SCH ×2 (11:15→16:55)
[2021-03-21] MEDS: *HR* Amiodarone 200 MG TABLET PO SCH (18:46)
[2021-03-21] MEDS: Insulin DETEMIR 100 UNIT/ML X5UNITS SUBQ SCH (20:39)
[2021-03-22] MEDS ORDERED: Amiodarone Premix 360 MG/200 ML BAG IVC SCH (00:44)
[2021-03-22 06:10] LABS: Basophils % 0.5 %; Eosinophils # 0.3 K/mcL (0.0-0.6); Eosinophils % 3.3 %; Hematocrit 27.4 % (35.3-44.9); Hemoglobin 8.5 g/dL (11.5-15.4); Immature Granulocytes % 0.4 % (0-4); Lymphocytes % 23.7 %; Mean Corpuscular Hemoglobin 31.6 pg (28.0-33.3); Mean Corpuscular Volume 101.9 fL (83.0-100.0); Mean Platelet Volume 10.5 fL (9.4-12.4); Monocytes % 11.7 %; Platelet Count 183 K/mcL (140-400); Red Blood Count 2.69 M/mcL (3.82-4.97); Red Cell Distribution Width 16.1 % (11.5-14.5); Segmented Neutrophils % 60.4 %; White Blood Count 8.2 K/mcL (4.3-11.1)
[2021-03-22 06:32] LABS: Blood Urea Nitrogen 42 mg/dL (8-23); Calcium 8.4 mg/dL (8.6-10.3); Carbon Dioxide 29 mEq/L (23-29); Chloride 102 mEq/L (98-107); Glucose 90 mg/dL (70-105); Osmolality,Calculated 296 (280-300); Potassium 3.8 mEq/L (3.5-5.1); Sodium 138 mEq/L (136-145)
[2021-03-22] MEDS: Amiodarone Premix 360 MG/200 ML BAG IVC SCH ×2 (06:37→17:35)
[2021-03-22 07:18] LABS: BUN/Creatinine Ratio 40 (6-26); eGFR For African Americans > 60 (> 60); eGFR For Non-African Americans 51 (> 60)
[2021-03-22] MEDS: Insulin LISPRO 300 UNITS/3 ML VIAL SUBQ SCH ×4 (07:42→19:54)
[2021-03-22] MEDS: Loratadine 10 MG TABLET PO SCH (07:42)
[2021-03-22] MEDS: Acetaminophen 325 MG TABLET PO PRN (07:42)
[2021-03-22] MEDS: Furosemide 20 MG/2 ML VIAL IVP SCH (07:43)
[2021-03-22] MEDS: Aspirin Enteric Coated 81 MG Tablet PO SCH (07:43)
[2021-03-22] MEDS: Sennosides/Docusate Sodium TABLET PO SCH ×2 (07:44→19:57)
[2021-03-22] MEDS: *HR* Amiodarone 200 MG TABLET PO SCH (07:44)
[2021-03-22] MEDS: Famotidine 20 MG TABLET PO SCH ×2 (07:44→19:57)
[2021-03-22] MEDS: amLODIPine 5 MG TABLET PO SCH (09:44)
[2021-03-22] MEDS: PARoxetine 10 MG TABLET PO SCH (09:44)
[2021-03-22] MEDS: Furosemide 40 MG TABLET PO SCH (15:58)
[2021-03-22] MEDS: *HR* OxyCODONE/APAP 5/325 TABLET PO PRN (15:58)
[2021-03-22] MEDS: Insulin DETEMIR 100 UNIT/ML X5UNITS SUBQ SCH (19:59)
[2021-03-23] MEDS: Amiodarone Premix 360 MG/200 ML BAG IVC SCH (04:27)
[2021-03-23] MEDS: PARoxetine 10 MG TABLET PO SCH (07:19)
[2021-03-23] MEDS: amLODIPine 5 MG TABLET PO SCH (07:19)
[2021-03-23] MEDS: Famotidine 20 MG TABLET PO SCH ×2 (07:20→19:51)
[2021-03-23] MEDS: Aspirin Enteric Coated 81 MG Tablet PO SCH (07:20)
[2021-03-23] MEDS: Furosemide 40 MG TABLET PO SCH ×2 (07:20→16:04)
[2021-03-23] MEDS: Loratadine 10 MG TABLET PO SCH (07:20)
[2021-03-23] MEDS: Acetaminophen 325 MG TABLET PO PRN (07:20)
[2021-03-23] MEDS: Sennosides/Docusate Sodium TABLET PO SCH ×2 (07:21→19:51)
[2021-03-23] MEDS: Insulin LISPRO 300 UNITS/3 ML VIAL SUBQ SCH ×4 (07:21→19:19)
[2021-03-23] MEDS: *HR* Amiodarone 200 MG TABLET PO SCH ×2 (08:54→19:51)
[2021-03-23] MEDS: *HR* OxyCODONE/APAP 5/325 TABLET PO PRN (16:04)
[2021-03-23] MEDS: Insulin DETEMIR 100 UNIT/ML X5UNITS SUBQ SCH (19:52)
[2021-03-24 00:59] LABS: Basophils % 0.5 %; Eosinophils # 0.3 K/mcL (0.0-0.6); Eosinophils % 3.8 %; Hematocrit 26.5 % (35.3-44.9); Hemoglobin 8.4 g/dL (11.5-15.4); Immature Granulocytes % 0.4 % (0-4); Lymphocytes % 26.7 %; Mean Corpuscular HGB Conc 31.7 g/dL (31.6-35.5); Mean Corpuscular Hemoglobin 32.1 pg (28.0-33.3); Mean Corpuscular Volume 101.1 fL (83.0-100.0); Mean Platelet Volume 10.5 fL (9.4-12.4); Monocytes # 0.8 K/mcL (0.0-1.3); Monocytes % 10.7 %; Neutrophils # 4.4 K/mcL (1.6-8.9); Platelet Count 242 K/mcL (140-400); Red Blood Count 2.62 M/mcL (3.82-4.97); Red Cell Distribution Width 15.6 % (11.5-14.5); Segmented Neutrophils % 57.9 %; White Blood Count 7.6 K/mcL (4.3-11.1)
[2021-03-24 01:17] LABS: BUN/Creatinine Ratio 43 (6-26); Blood Urea Nitrogen 42 mg/dL (8-23); Calcium 8.4 mg/dL (8.6-10.3); Carbon Dioxide 27 mEq/L (23-29); Chloride 104 mEq/L (98-107); Glucose 96 mg/dL (70-105); Osmolality,Calculated 294 (280-300); Potassium 3.6 mEq/L (3.5-5.1); Sodium 137 mEq/L (136-145); eGFR For African Americans > 60 (> 60); eGFR For Non-African Americans 55 (> 60)
[2021-03-24] MEDS: PARoxetine 10 MG TABLET PO SCH (08:28)
[2021-03-24] MEDS: Famotidine 20 MG TABLET PO SCH ×2 (08:28→10:33)
[2021-03-24] MEDS: Loratadine 10 MG TABLET PO SCH (08:28)
[2021-03-24] MEDS: Sennosides/Docusate Sodium TABLET PO SCH ×2 (08:28→20:59)
[2021-03-24] MEDS: Aspirin Enteric Coated 81 MG Tablet PO SCH (08:28)
[2021-03-24] MEDS: amLODIPine 5 MG TABLET PO SCH (08:28)
[2021-03-24] MEDS: Furosemide 40 MG TABLET PO SCH ×2 (08:29→17:14)
[2021-03-24] MEDS: *HR* Amiodarone 200 MG TABLET PO SCH ×2 (08:29→20:59)
[2021-03-24] MEDS: Insulin LISPRO 300 UNITS/3 ML VIAL SUBQ SCH ×4 (08:32→20:59)
[2021-03-24] MEDS: *HR* OxyCODONE/APAP 5/325 TABLET PO PRN ×2 (08:58→20:59)
[2021-03-24] MEDS: Metoprolol XL (24 HR) Succ 50 MG TAB.ER.24H PO SCH (10:33)
[2021-03-24] MEDS: Apixaban 5 MG TABLET PO SCH ×2 (10:47→20:59)
[2021-03-24] MEDS: Insulin DETEMIR 100 UNIT/ML X5UNITS SUBQ SCH (20:59)
[2021-03-25] MEDS ORDERED: *HR* Rivaroxaban 10 MG TABLET PO SCH (06:00)
[2021-03-25] MEDS: Insulin LISPRO 300 UNITS/3 ML VIAL SUBQ SCH ×4 (08:28→18:27)
[2021-03-25] MEDS: Aspirin Enteric Coated 81 MG Tablet PO SCH (08:42)
[2021-03-25] MEDS: PARoxetine 10 MG TABLET PO SCH (08:42)
[2021-03-25] MEDS: Furosemide 40 MG TABLET PO SCH ×2 (08:42→17:36)
[2021-03-25] MEDS: Sennosides/Docusate Sodium TABLET PO SCH ×2 (08:42→17:37)
[2021-03-25] MEDS: Metoprolol XL (24 HR) Succ 50 MG TAB.ER.24H PO SCH (08:42)
[2021-03-25] MEDS: Apixaban 5 MG TABLET PO SCH ×2 (08:43→21:03)
[2021-03-25] MEDS: Loratadine 10 MG TABLET PO SCH (08:43)
[2021-03-25] MEDS: Famotidine 20 MG TABLET PO SCH (08:43)
[2021-03-25] MEDS: amLODIPine 5 MG TABLET PO SCH (08:43)
[2021-03-25] MEDS: *HR* Amiodarone 200 MG TABLET PO SCH ×2 (08:43→21:03)
[2021-03-25] MEDS: *HR* OxyCODONE/APAP 5/325 TABLET PO PRN (17:41)
[2021-03-25] MEDS: Insulin DETEMIR 100 UNIT/ML X5UNITS SUBQ SCH (21:04)
[2021-03-26] MEDS: Insulin LISPRO 300 UNITS/3 ML VIAL SUBQ SCH ×4 (08:04→20:48)
[2021-03-26] MEDS: Aspirin Enteric Coated 81 MG Tablet PO SCH (09:08)
[2021-03-26] MEDS: Apixaban 5 MG TABLET PO SCH ×2 (09:08→20:48)
[2021-03-26] MEDS: Furosemide 40 MG TABLET PO SCH ×2 (09:08→17:43)
[2021-03-26] MEDS: Famotidine 20 MG TABLET PO SCH (09:08)
[2021-03-26] MEDS: *HR* Amiodarone 200 MG TABLET PO SCH ×2 (09:08→20:48)
[2021-03-26] MEDS: amLODIPine 5 MG TABLET PO SCH (09:08)
[2021-03-26] MEDS: Sennosides/Docusate Sodium TABLET PO SCH ×2 (09:09→20:48)
[2021-03-26] MEDS: Metoprolol XL (24 HR) Succ 50 MG TAB.ER.24H PO SCH (09:09)
[2021-03-26] MEDS: PARoxetine 10 MG TABLET PO SCH (09:09)
[2021-03-26] MEDS: Loratadine 10 MG TABLET PO SCH (09:09)
[2021-03-26] MEDS ORDERED: Ondansetron 4 MG/2 ML VIAL IVP PRN (09:20)
[2021-03-26] MEDS: *HR* OxyCODONE/APAP 5/325 TABLET PO PRN (19:32)
[2021-03-26] MEDS: Insulin DETEMIR 100 UNIT/ML X5UNITS SUBQ SCH (21:40)
[2021-03-27] MEDS ORDERED: *HR* Dextrose 50 % in Water (Syg) 50 ML SYRINGE IVP PRN (07:30)
[2021-03-27] MEDS: Insulin LISPRO 300 UNITS/3 ML VIAL SUBQ SCH ×3 (07:40→16:54)
[2021-03-27] MEDS: Metoprolol XL (24 HR) Succ 50 MG TAB.ER.24H PO SCH (07:40)
[2021-03-27] MEDS: Aspirin Enteric Coated 81 MG Tablet PO SCH (07:55)
[2021-03-27] MEDS: Furosemide 40 MG TABLET PO SCH ×2 (07:55→16:53)
[2021-03-27] MEDS: Apixaban 5 MG TABLET PO SCH ×2 (07:55→21:25)
[2021-03-27] MEDS: Famotidine 20 MG TABLET PO SCH (07:55)
[2021-03-27] MEDS: amLODIPine 5 MG TABLET PO SCH (07:55)
[2021-03-27] MEDS: *HR* Amiodarone 200 MG TABLET PO SCH ×2 (07:55→21:25)
[2021-03-27] MEDS: Loratadine 10 MG TABLET PO SCH (07:55)
[2021-03-27] MEDS: Sennosides/Docusate Sodium TABLET PO SCH (07:55)
[2021-03-27] MEDS: PARoxetine 10 MG TABLET PO SCH (07:56)
[2021-03-27] MEDS: Metoprolol XL (24 HR) Succ 25 MG TAB.ER.24H PO SCH (11:12)
[2021-03-27] MEDS: *HR* OxyCODONE/APAP 5/325 TABLET PO PRN (19:33)
[2021-03-28] MEDS: Insulin LISPRO 300 UNITS/3 ML VIAL SUBQ SCH ×5 (00:48→20:45)
[2021-03-28] MEDS: Insulin DETEMIR 100 UNIT/ML X5UNITS SUBQ SCH ×2 (00:49→20:45)
[2021-03-28] MEDS: Sennosides/Docusate Sodium TABLET PO SCH ×3 (00:49→20:44)
[2021-03-28] MEDS: PARoxetine 10 MG TABLET PO SCH (08:32)
[2021-03-28] MEDS: amLODIPine 5 MG TABLET PO SCH (08:32)
[2021-03-28] MEDS: Loratadine 10 MG TABLET PO SCH (08:33)
[2021-03-28] MEDS: Apixaban 5 MG TABLET PO SCH ×2 (08:33→20:44)
[2021-03-28] MEDS: Aspirin Enteric Coated 81 MG Tablet PO SCH (08:33)
[2021-03-28] MEDS: *HR* Amiodarone 200 MG TABLET PO SCH ×2 (08:33→20:43)
[2021-03-28] MEDS: Furosemide 40 MG TABLET PO SCH ×2 (08:34→16:55)
[2021-03-28] MEDS: Famotidine 20 MG TABLET PO SCH (08:34)
[2021-03-28] MEDS: Metoprolol XL (24 HR) Succ 25 MG TAB.ER.24H PO SCH (08:34)
[2021-03-28] MEDS: Acetaminophen 325 MG TABLET PO PRN (16:57)
[2021-03-29] MEDS: Acetaminophen 325 MG TABLET PO PRN ×2 (00:03→12:34)
[2021-03-29 00:54] LABS: BUN/Creatinine Ratio 31 (6-26); Blood Urea Nitrogen 33 mg/dL (8-23); Calcium 8.5 mg/dL (8.6-10.3); Carbon Dioxide 28 mEq/L (23-29); Chloride 102 mEq/L (98-107); Glucose 137 mg/dL (70-105); Osmolality,Calculated 293 (280-300); Potassium 3.9 mEq/L (3.5-5.1); Sodium 137 mEq/L (136-145); eGFR For African Americans > 60 (> 60); eGFR For Non-African Americans 51 (> 60)
[2021-03-29 05:03] LABS: Basophils # 0.1 K/mcL (0.0-0.2); Basophils % 0.5 %; Eosinophils # 0.3 K/mcL (0.0-0.6); Eosinophils % 2.6 %; Hematocrit 28.3 % (35.3-44.9); Hemoglobin 8.7 g/dL (11.5-15.4); Immature Granulocytes % 0.3 % (0-4); Lymphocytes # 2.7 K/mcL (0.6-4.6); Lymphocytes % 27.6 %; Mean Corpuscular HGB Conc 30.7 g/dL (31.6-35.5); Mean Corpuscular Hemoglobin 31.4 pg (28.0-33.3); Mean Corpuscular Volume 102.2 fL (83.0-100.0); Monocytes % 9.8 %; Neutrophils # 5.7 K/mcL (1.6-8.9); Platelet Count 386 K/mcL (140-400); Red Blood Count 2.77 M/mcL (3.82-4.97); Red Cell Distribution Width 15.9 % (11.5-14.5); Segmented Neutrophils % 59.2 %; White Blood Count 9.7 K/mcL (4.3-11.1)
[2021-03-29] MEDS: amLODIPine 5 MG TABLET PO SCH (07:17)
[2021-03-29] MEDS: Metoprolol XL (24 HR) Succ 25 MG TAB.ER.24H PO SCH (07:17)
[2021-03-29] MEDS: Sennosides/Docusate Sodium TABLET PO SCH (07:17)
[2021-03-29] MEDS: Aspirin Enteric Coated 81 MG Tablet PO SCH (07:18)
[2021-03-29] MEDS: *HR* Amiodarone 200 MG TABLET PO SCH (07:18)
[2021-03-29] MEDS: Loratadine 10 MG TABLET PO SCH (07:18)
[2021-03-29] MEDS: Furosemide 40 MG TABLET PO SCH (07:18)
[2021-03-29] MEDS: Apixaban 5 MG TABLET PO SCH (07:18)
[2021-03-29] MEDS: PARoxetine 10 MG TABLET PO SCH (07:18)
[2021-03-29] MEDS: Insulin LISPRO 300 UNITS/3 ML VIAL SUBQ SCH ×2 (07:19→11:47)
[2021-03-29] MEDS: Famotidine 20 MG TABLET PO SCH (07:23)
[2021-03-29] MEDS ORDERED: FLU Vac QV 21-22 (6Month+)/PF 0.5 ML SYRINGE IM ONE (10:09)
[2021-03-29 11:24] VITALS: BP 172/66; PULSE 76; TEMP 97.9
[2021-03-29 11:30] VITALS: O2SAT 93
== END 2021-03-29 12:39 | disposition home health service (06) | DRG 235 ==
LOC: SAMDAY 06:13 → ICNU 13:11 → 2NNU 03-16 14:38
PROVIDERS: ADMIT Thoracic Surgery (Cardiothoracic Vascular Surgery); ATTEND Thoracic Surgery (Cardiothoracic Vascular Surgery)

== ENCOUNTER 2021-06-16 10:15 | Inpatient (IN) ==
[2021-06-16 11:43] LABS: Basophils # 0.1 K/mcL (0.0-0.2); Basophils % 0.8 %; Eosinophils # 0.1 K/mcL (0.0-0.6); Eosinophils % 0.9 %; Hematocrit 33.1 % (35.3-44.9); Hemoglobin 10.1 g/dL (11.5-15.4); Immature Granulocytes % 0.2 % (0-4); Lymphocytes # 1.9 K/mcL (0.6-4.6); Lymphocytes % 30.4 %; Mean Corpuscular HGB Conc 30.5 g/dL (31.6-35.5); Mean Corpuscular Hemoglobin 29.4 pg (28.0-33.3); Mean Corpuscular Volume 96.5 fL (83.0-100.0); Mean Platelet Volume 10.6 fL (9.4-12.4); Monocytes # 0.5 K/mcL (0.0-1.3); Monocytes % 8.3 %; Neutrophils # 3.8 K/mcL (1.6-8.9); Platelet Count 212 K/mcL (140-400); Red Blood Count 3.43 M/mcL (3.82-4.97); Red Cell Distribution Width 15.6 % (11.5-14.5); Segmented Neutrophils % 59.4 %; White Blood Count 6.4 K/mcL (4.3-11.1)
[2021-06-16 12:03] LABS: Calcium 9.6 mg/dL (8.6-10.3); Potassium 4.3 mEq/L (3.5-5.1)
[2021-06-16 12:04] LABS: Troponin I 0.03 ng/mL (< 0.04)
[2021-06-16] MEDS ORDERED: Isovue-370 500 ML BOTTLE IVP ONE (12:31)
[2021-06-16] MEDS ORDERED: Furosemide 20 MG/2 ML VIAL IVP ONE (13:54)
[2021-06-16] MEDS ORDERED: Acetaminophen 325 MG TABLET PO PRN (16:21)
[2021-06-16] MEDS ORDERED: D5% in Water 1,000 ML IVC PRN (16:21)
[2021-06-16] MEDS ORDERED: *HR* Dextrose 50 % in Water (Syg) 50 ML SYRINGE IVP PRN (16:21)
[2021-06-16] MEDS ORDERED: Ondansetron 4 MG/2 ML VIAL IVP PRN (16:21)
[2021-06-16] MEDS ORDERED: Naloxone 0.4 MG/ML INJ IVP PRN (16:21)
[2021-06-16] MEDS ORDERED: Dextrose Gel 15 GM/37.5 ML TUBE PO PRN ×2 (16:21)
[2021-06-16] MEDS ORDERED: Benzonatate 100 MG CAPSULE PO PRN (16:27)
[2021-06-16] MEDS ORDERED: Perflutren Lipid Microsphere 1.3 ML in 0.9 % Sodium Chloride 8.7 ML IVP PRN (16:27)
[2021-06-16] MEDS ORDERED: cefTRIAXone 1,000 MG in 0.9 % Sodium Chloride Mini Bag 100 ML IVP SCH (17:00)
[2021-06-16] MEDS: Insulin LISPRO 300 UNITS/3 ML VIAL SUBQ SCH (17:03)
[2021-06-16] MEDS: Azithromycin 500 MG in 0.9 % Sodium Chloride 250 ML IVPB SCH (17:03)
[2021-06-16 17:20] LABS: Adenovirus Not Detected (Not Detect); Bordetella Pertussis Not Detected (Not Detect); Chlamydophila pneumoniae Not Detected (Not Detect); Coronavirus 229E Not Detected (Not Detect); Coronavirus HKU1 Not Detected (Not Detect); Coronavirus NL63 Not Detected (Not Detect); Coronavirus OC43 Not Detected (Not Detect); Human Metapneumovirus Not Detected (Not Detect); Human Rhinovirus/Enterovirus Not Detected (Not Detect); Influenza A Subtype 2009 H1 Not Detected (Not Detect); Influenza B Not Detected (Not Detect); Mycoplasma pneumoniae Not Detected (Not Detect); Parainfluenza Virus 1 Not Detected (Not Detect); Parainfluenza Virus 2 Not Detected (Not Detect); Parainfluenza Virus 3 Not Detected (Not Detect); Parainfluenza Virus 4 Not Detected (Not Detect); Respiratory Syncytial Virus Not Detected (Not Detect); SARS-CoV-2 Not Detected (Not Detect)
[2021-06-16] MEDS: cefTRIAXone 1,000 MG in 0.9 % Sodium Chloride Mini Bag 100 ML IVP SCH (18:13)
[2021-06-16] MEDS: Apixaban 5 MG TABLET PO SCH (21:52)
[2021-06-16] MEDS: Gabapentin 300 MG CAPSULE PO SCH (21:53)
[2021-06-16] MEDS: Furosemide 40 MG/4 ML VIAL IVP SCH (21:53)
[2021-06-16] MEDS: Insulin DETEMIR 100 UNIT/ML X5UNITS SUBQ SCH (21:57)
[2021-06-17 06:37] LABS: Basophils % 0.7 %; Eosinophils # 0.2 K/mcL (0.0-0.6); Eosinophils % 3.6 %; Hemoglobin 8.8 g/dL (11.5-15.4); Immature Granulocytes % 0.2 % (0-4); Lymphocytes # 2.3 K/mcL (0.6-4.6); Lymphocytes % 42.2 %; Mean Corpuscular HGB Conc 30.3 g/dL (31.6-35.5); Mean Corpuscular Hemoglobin 28.9 pg (28.0-33.3); Mean Corpuscular Volume 95.4 fL (83.0-100.0); Mean Platelet Volume 10.6 fL (9.4-12.4); Monocytes # 0.6 K/mcL (0.0-1.3); Monocytes % 10.9 %; Neutrophils # 2.3 K/mcL (1.6-8.9); Platelet Count 170 K/mcL (140-400); Red Blood Count 3.04 M/mcL (3.82-4.97); Red Cell Distribution Width 15.8 % (11.5-14.5); Segmented Neutrophils % 42.4 %; White Blood Count 5.5 K/mcL (4.3-11.1)
[2021-06-17 06:58] LABS: Troponin I 0.04 ng/mL (< 0.04)
[2021-06-17 06:59] LABS: Chol/HDL Ratio 2.6 (0-4.9); Magnesium 1.8 mg/dL (1.6-2.6); Potassium 3.8 mEq/L (3.5-5.1)
[2021-06-17] MEDS: Insulin LISPRO 300 UNITS/3 ML VIAL SUBQ SCH ×3 (08:44→16:20)
[2021-06-17] MEDS: Furosemide 40 MG/4 ML VIAL IVP SCH ×2 (08:56→20:04)
[2021-06-17] MEDS: *HR* Amiodarone 200 MG TABLET PO SCH (08:57)
[2021-06-17] MEDS: Loratadine 10 MG TABLET PO SCH (08:57)
[2021-06-17] MEDS: Gabapentin 300 MG CAPSULE PO SCH ×3 (08:58→20:04)
[2021-06-17] MEDS: amLODIPine 5 MG TABLET PO SCH (08:58)
[2021-06-17] MEDS: Cyanocobalamin (B-12) 1,000 MCG TABLET PO SCH (08:58)
[2021-06-17] MEDS: Apixaban 5 MG TABLET PO SCH ×2 (08:58→20:04)
[2021-06-17] MEDS: Aspirin Enteric Coated 81 MG Tablet PO SCH (08:58)
[2021-06-17] MEDS: Metoprolol XL (24 HR) Succ 25 MG TAB.ER.24H PO SCH (08:59)
[2021-06-17] MEDS: Pyridoxine (B-6) 50 MG TABLET PO SCH (09:01)
[2021-06-17] MEDS: PARoxetine 10 MG TABLET PO SCH (09:01)
[2021-06-17] MEDS: Azithromycin 500 MG in 0.9 % Sodium Chloride 250 ML IVPB SCH (16:32)
[2021-06-17] MEDS: cefTRIAXone 1,000 MG in 0.9 % Sodium Chloride Mini Bag 100 ML IVP SCH (18:10)
[2021-06-17] MEDS: Insulin DETEMIR 100 UNIT/ML X5UNITS SUBQ SCH (20:04)
[2021-06-18] MEDS: Insulin LISPRO 300 UNITS/3 ML VIAL SUBQ SCH (07:30)
[2021-06-18] MEDS ORDERED: Insulin LISPRO 300 UNITS/3 ML VIAL SUBQ SCH (08:00)
[2021-06-18] MEDS: Furosemide 40 MG/4 ML VIAL IVP SCH ×2 (08:19→19:54)
[2021-06-18] MEDS: Aspirin Enteric Coated 81 MG Tablet PO SCH (08:19)
[2021-06-18] MEDS: PARoxetine 10 MG TABLET PO SCH (08:19)
[2021-06-18] MEDS: Pyridoxine (B-6) 50 MG TABLET PO SCH (08:20)
[2021-06-18] MEDS: Gabapentin 300 MG CAPSULE PO SCH ×3 (08:20→19:54)
[2021-06-18] MEDS: Loratadine 10 MG TABLET PO SCH (08:20)
[2021-06-18] MEDS: amLODIPine 5 MG TABLET PO SCH (08:20)
[2021-06-18] MEDS: Apixaban 5 MG TABLET PO SCH ×2 (08:21→19:54)
[2021-06-18] MEDS: *HR* Amiodarone 200 MG TABLET PO SCH (08:21)
[2021-06-18] MEDS: Cyanocobalamin (B-12) 1,000 MCG TABLET PO SCH (08:21)
[2021-06-18] MEDS: Metoprolol XL (24 HR) Succ 25 MG TAB.ER.24H PO SCH (08:22)
[2021-06-18] MEDS: Azithromycin 500 MG in 0.9 % Sodium Chloride 250 ML IVPB SCH (16:22)
[2021-06-18] MEDS: cefTRIAXone 1,000 MG in 0.9 % Sodium Chloride Mini Bag 100 ML IVP SCH (18:05)
[2021-06-18] MEDS: Insulin DETEMIR 100 UNIT/ML X5UNITS SUBQ SCH (19:55)
[2021-06-18] MEDS ORDERED: Insulin DETEMIR 100 UNIT/ML X5UNITS SUBQ SCH (21:00)
[2021-06-19 02:26] LABS: Basophils % 0.8 %; Eosinophils # 0.2 K/mcL (0.0-0.6); Hematocrit 28.9 % (35.3-44.9); Hemoglobin 8.7 g/dL (11.5-15.4); Immature Granulocytes % 0.2 % (0-4); Lymphocytes # 2.2 K/mcL (0.6-4.6); Lymphocytes % 44.8 %; Mean Corpuscular HGB Conc 30.1 g/dL (31.6-35.5); Mean Corpuscular Volume 96.3 fL (83.0-100.0); Mean Platelet Volume 10.6 fL (9.4-12.4); Monocytes # 0.5 K/mcL (0.0-1.3); Monocytes % 10.8 %; Platelet Count 153 K/mcL (140-400); Red Cell Distribution Width 15.5 % (11.5-14.5); Segmented Neutrophils % 40.4 %; White Blood Count 4.9 K/mcL (4.3-11.1)
[2021-06-19 02:41] LABS: Calcium 8.7 mg/dL (8.6-10.3); Potassium 3.6 mEq/L (3.5-5.1)
[2021-06-19] MEDS: Pyridoxine (B-6) 50 MG TABLET PO SCH (08:28)
[2021-06-19] MEDS: Metoprolol XL (24 HR) Succ 25 MG TAB.ER.24H PO SCH (08:28)
[2021-06-19] MEDS: Gabapentin 300 MG CAPSULE PO SCH ×3 (08:28→20:48)
[2021-06-19] MEDS: PARoxetine 10 MG TABLET PO SCH (08:28)
[2021-06-19] MEDS: Cyanocobalamin (B-12) 1,000 MCG TABLET PO SCH (08:28)
[2021-06-19] MEDS: *HR* Amiodarone 200 MG TABLET PO SCH (08:28)
[2021-06-19] MEDS: Furosemide 40 MG/4 ML VIAL IVP SCH ×2 (08:28→20:50)
[2021-06-19] MEDS: Loratadine 10 MG TABLET PO SCH (08:29)
[2021-06-19] MEDS: Aspirin Enteric Coated 81 MG Tablet PO SCH (08:29)
[2021-06-19] MEDS: amLODIPine 5 MG TABLET PO SCH (08:29)
[2021-06-19] MEDS: Apixaban 5 MG TABLET PO SCH ×2 (08:29→20:48)
[2021-06-19] MEDS: Azithromycin 250 MG TABLET PO SCH (17:03)
[2021-06-19] MEDS: cefTRIAXone 1,000 MG in 0.9 % Sodium Chloride Mini Bag 100 ML IVP SCH (17:03)
[2021-06-19] MEDS: Insulin DETEMIR 100 UNIT/ML X5UNITS SUBQ SCH (20:50)
[2021-06-20 01:11] LABS: Basophils # 0.1 K/mcL (0.0-0.2); Basophils % 0.9 %; Eosinophils # 0.2 K/mcL (0.0-0.6); Eosinophils % 3.2 %; Hematocrit 29.3 % (35.3-44.9); Hemoglobin 8.9 g/dL (11.5-15.4); Immature Granulocytes % 0.2 % (0-4); Lymphocytes # 2.3 K/mcL (0.6-4.6); Lymphocytes % 38.6 %; Mean Corpuscular HGB Conc 30.4 g/dL (31.6-35.5); Mean Corpuscular Volume 95.4 fL (83.0-100.0); Mean Platelet Volume 11.1 fL (9.4-12.4); Monocytes # 0.7 K/mcL (0.0-1.3); Monocytes % 11.1 %; Neutrophils # 2.7 K/mcL (1.6-8.9); Platelet Count 153 K/mcL (140-400); Red Blood Count 3.07 M/mcL (3.82-4.97); Red Cell Distribution Width 15.2 % (11.5-14.5); White Blood Count 5.9 K/mcL (4.3-11.1)
[2021-06-20 01:28] LABS: Calcium 8.7 mg/dL (8.6-10.3); Potassium 3.5 mEq/L (3.5-5.1)
[2021-06-20] MEDS: *HR* Amiodarone 200 MG TABLET PO SCH (08:23)
[2021-06-20] MEDS: Aspirin Enteric Coated 81 MG Tablet PO SCH (08:23)
[2021-06-20] MEDS: Pyridoxine (B-6) 50 MG TABLET PO SCH (08:23)
[2021-06-20] MEDS: PARoxetine 10 MG TABLET PO SCH (08:23)
[2021-06-20] MEDS: Gabapentin 300 MG CAPSULE PO SCH ×2 (08:23→15:22)
[2021-06-20] MEDS: Metoprolol XL (24 HR) Succ 25 MG TAB.ER.24H PO SCH (08:23)
[2021-06-20] MEDS: Apixaban 5 MG TABLET PO SCH (08:23)
[2021-06-20] MEDS: amLODIPine 5 MG TABLET PO SCH (08:23)
[2021-06-20] MEDS: Furosemide 40 MG/4 ML VIAL IVP SCH (08:23)
[2021-06-20] MEDS: Cyanocobalamin (B-12) 1,000 MCG TABLET PO SCH (08:23)
[2021-06-20] MEDS: Loratadine 10 MG TABLET PO SCH (08:23)
[2021-06-20] MEDS: Azithromycin 250 MG TABLET PO SCH (15:22)
[2021-06-20 16:00] VITALS: BP 154/82; PULSE 52; TEMP 98.1; O2SAT 91
[2021-06-20] MEDS: cefTRIAXone 1,000 MG in 0.9 % Sodium Chloride Mini Bag 100 ML IVP SCH (16:41)
== END 2021-06-20 17:44 | disposition home health service (06) | DRG 291 ==
LOC: EMEROOARM 10:15 → 2ANU 10:15
PROVIDERS: ADMIT Internal Medicine; ATTEND Internal Medicine

== ENCOUNTER 2021-07-06 14:59 | Inpatient (IN) ==
[2021-07-06 16:18] LABS: Basophils % 0.7 %; Eosinophils # 0.1 K/mcL (0.0-0.6); Eosinophils % 1.6 %; Hematocrit 34.2 % (35.3-44.9); Hemoglobin 10.2 g/dL (11.5-15.4); Immature Granulocytes % 0.4 % (0-4); Lymphocytes # 1.9 K/mcL (0.6-4.6); Lymphocytes % 34.2 %; Mean Corpuscular HGB Conc 29.8 g/dL (31.6-35.5); Mean Corpuscular Hemoglobin 28.1 pg (28.0-33.3); Mean Corpuscular Volume 94.2 fL (83.0-100.0); Mean Platelet Volume 10.3 fL (9.4-12.4); Monocytes # 0.5 K/mcL (0.0-1.3); Monocytes % 8.6 %; Platelet Count 194 K/mcL (140-400); Red Blood Count 3.63 M/mcL (3.82-4.97); Red Cell Distribution Width 15.7 % (11.5-14.5); Segmented Neutrophils % 54.5 %; White Blood Count 5.5 K/mcL (4.3-11.1)
[2021-07-06 16:40] LABS: Calcium 9.1 mg/dL (8.6-10.3); Potassium 4.1 mEq/L (3.5-5.1)
[2021-07-06 16:41] LABS: Troponin I 0.03 ng/mL (< 0.04)
[2021-07-06] MEDS ORDERED: Furosemide 40 MG/4 ML VIAL IVP ONE (16:50)
[2021-07-06] MEDS ORDERED: Melatonin 3 MG TABLET PO PRN (17:22)
[2021-07-06] MEDS ORDERED: Naloxone 0.4 MG/ML INJ IVP PRN (17:22)
[2021-07-06] MEDS ORDERED: Acetaminophen 325 MG TABLET PO PRN (17:22)
[2021-07-06 17:55] LABS: Adenovirus Not Detected (Not Detect); Bordetella Pertussis Not Detected (Not Detect); Chlamydophila pneumoniae Not Detected (Not Detect); Coronavirus 229E Not Detected (Not Detect); Coronavirus HKU1 Not Detected (Not Detect); Coronavirus NL63 Not Detected (Not Detect); Coronavirus OC43 Not Detected (Not Detect); Human Metapneumovirus Not Detected (Not Detect); Human Rhinovirus/Enterovirus Not Detected (Not Detect); Influenza A Subtype 2009 H1 Not Detected (Not Detect); Influenza B Not Detected (Not Detect); Mycoplasma pneumoniae Not Detected (Not Detect); Parainfluenza Virus 1 Not Detected (Not Detect); Parainfluenza Virus 2 Not Detected (Not Detect); Parainfluenza Virus 3 Not Detected (Not Detect); Parainfluenza Virus 4 Not Detected (Not Detect); Respiratory Syncytial Virus DETECTED (Not Detect); SARS-CoV-2 Not Detected (Not Detect)
[2021-07-06] MEDS: Sucralfate 1 GM TABLET PO SCH (21:25)
[2021-07-06] MEDS: Gabapentin 300 MG CAPSULE PO SCH (21:26)
[2021-07-06] MEDS: Apixaban 5 MG TABLET PO SCH (21:26)
[2021-07-06] MEDS ORDERED: *HR* Dextrose 50 % in Water (Syg) 50 ML SYRINGE IVP PRN (23:36)
[2021-07-06] MEDS ORDERED: Dextrose Gel 15 GM/37.5 ML TUBE PO PRN ×2 (23:36)
[2021-07-06] MEDS ORDERED: D5% in Water 1,000 ML IVC PRN (23:36)
[2021-07-07 03:33] LABS: Basophils % 0.7 %; Eosinophils # 0.2 K/mcL (0.0-0.6); Eosinophils % 3.1 %; Hemoglobin 9.4 g/dL (11.5-15.4); Immature Granulocytes % 0.2 % (0-4); Lymphocytes # 2.5 K/mcL (0.6-4.6); Lymphocytes % 45.3 %; Mean Corpuscular HGB Conc 29.4 g/dL (31.6-35.5); Mean Corpuscular Hemoglobin 27.8 pg (28.0-33.3); Mean Corpuscular Volume 94.7 fL (83.0-100.0); Mean Platelet Volume 10.2 fL (9.4-12.4); Monocytes # 0.5 K/mcL (0.0-1.3); Monocytes % 9.2 %; Neutrophils # 2.3 K/mcL (1.6-8.9); Platelet Count 183 K/mcL (140-400); Red Blood Count 3.38 M/mcL (3.82-4.97); Red Cell Distribution Width 15.9 % (11.5-14.5); Segmented Neutrophils % 41.5 %; White Blood Count 5.6 K/mcL (4.3-11.1)
[2021-07-07 03:45] LABS: Calcium 9.2 mg/dL (8.6-10.3); Magnesium 1.7 mg/dL (1.6-2.6); Phosphorous 4.8 mg/dL (2.7-4.5); Potassium 3.5 mEq/L (3.5-5.1)
[2021-07-07 04:37] LABS: INR 1.7; Prothrombin Time 19.3 Seconds (9.4-12.1)
[2021-07-07 04:40] LABS: Activated Partial Thrombo Time 36.2 Seconds (26.0-36.0)
[2021-07-07] MEDS: Insulin LISPRO 300 UNITS/3 ML VIAL SUBQ SCH ×3 (08:44→17:03)
[2021-07-07] MEDS: Apixaban 5 MG TABLET PO SCH ×2 (08:49→21:23)
[2021-07-07] MEDS: Furosemide 40 MG/4 ML VIAL IVP SCH ×2 (08:49→17:03)
[2021-07-07] MEDS: Gabapentin 300 MG CAPSULE PO SCH ×3 (08:49→21:23)
[2021-07-07] MEDS: Aspirin Enteric Coated 81 MG Tablet PO SCH (08:50)
[2021-07-07] MEDS: amLODIPine 5 MG TABLET PO SCH (08:50)
[2021-07-07] MEDS: *HR* Amiodarone 200 MG TABLET PO SCH (08:50)
[2021-07-07] MEDS: Loratadine 10 MG TABLET PO SCH (08:50)
[2021-07-07] MEDS: Sucralfate 1 GM TABLET PO SCH ×4 (08:52→21:23)
[2021-07-07] MEDS: Metoprolol XL (24 HR) Succ 25 MG TAB.ER.24H PO SCH (10:23)
[2021-07-07] MEDS: PARoxetine 10 MG TABLET PO SCH (10:23)
[2021-07-07] MEDS: Insulin DETEMIR 100 UNIT/ML X5UNITS SUBQ SCH (21:23)
[2021-07-08 05:39] LABS: Hematocrit 30.6 % (35.3-44.9); Hemoglobin 9.4 g/dL (11.5-15.4); Mean Corpuscular HGB Conc 30.7 g/dL (31.6-35.5); Mean Corpuscular Hemoglobin 28.7 pg (28.0-33.3); Mean Corpuscular Volume 93.6 fL (83.0-100.0); Mean Platelet Volume 10.3 fL (9.4-12.4); Platelet Count 172 K/mcL (140-400); Red Blood Count 3.27 M/mcL (3.82-4.97); Red Cell Distribution Width 15.5 % (11.5-14.5); White Blood Count 6.2 K/mcL (4.3-11.1)
[2021-07-08 05:58] LABS: Calcium 8.8 mg/dL (8.6-10.3); Magnesium 1.7 mg/dL (1.6-2.6); Phosphorous 4.5 mg/dL (2.7-4.5); Potassium 3.5 mEq/L (3.5-5.1)
[2021-07-08] MEDS: Gabapentin 300 MG CAPSULE PO SCH ×3 (08:57→20:47)
[2021-07-08] MEDS: amLODIPine 5 MG TABLET PO SCH (08:58)
[2021-07-08] MEDS: Loratadine 10 MG TABLET PO SCH (08:58)
[2021-07-08] MEDS: Aspirin Enteric Coated 81 MG Tablet PO SCH (08:58)
[2021-07-08] MEDS: Sucralfate 1 GM TABLET PO SCH ×4 (08:58→20:47)
[2021-07-08] MEDS: Metoprolol XL (24 HR) Succ 25 MG TAB.ER.24H PO SCH (08:58)
[2021-07-08] MEDS: Apixaban 5 MG TABLET PO SCH ×2 (08:58→20:47)
[2021-07-08] MEDS: PARoxetine 10 MG TABLET PO SCH (08:58)
[2021-07-08] MEDS: *HR* Amiodarone 200 MG TABLET PO SCH (08:58)
[2021-07-08] MEDS: Furosemide 40 MG/4 ML VIAL IVP SCH ×2 (08:58→16:52)
[2021-07-08] MEDS: Insulin LISPRO 300 UNITS/3 ML VIAL SUBQ SCH ×3 (08:59→16:53)
[2021-07-08] MEDS ORDERED: Ipratropium/Albuterol Neb 3 ML IH PRN (14:09)
[2021-07-08] MEDS ORDERED: GuaiFENesin Liq 200 MG/10 ML UDC PO PRN (14:09)
[2021-07-08] MEDS: Acetylcysteine 10% 2 ML INHSOL IH SCH ×2 (14:57→19:29)
[2021-07-08] MEDS: Insulin DETEMIR 100 UNIT/ML X5UNITS SUBQ SCH (20:47)
[2021-07-09 06:44] VITALS: BP 135/52; PULSE 52; TEMP 98
[2021-07-09] MEDS: Insulin LISPRO 300 UNITS/3 ML VIAL SUBQ SCH (07:43)
[2021-07-09] MEDS: Gabapentin 300 MG CAPSULE PO SCH (09:00)
[2021-07-09] MEDS: Apixaban 5 MG TABLET PO SCH (09:00)
[2021-07-09] MEDS: amLODIPine 5 MG TABLET PO SCH (09:01)
[2021-07-09] MEDS: PARoxetine 10 MG TABLET PO SCH (09:01)
[2021-07-09] MEDS: Metoprolol XL (24 HR) Succ 25 MG TAB.ER.24H PO SCH (09:01)
[2021-07-09] MEDS: Loratadine 10 MG TABLET PO SCH (09:01)
[2021-07-09] MEDS: *HR* Amiodarone 200 MG TABLET PO SCH (09:01)
[2021-07-09] MEDS: Aspirin Enteric Coated 81 MG Tablet PO SCH (09:01)
[2021-07-09] MEDS: Sucralfate 1 GM TABLET PO SCH (09:01)
[2021-07-09] MEDS: Furosemide 40 MG/4 ML VIAL IVP SCH (09:04)
[2021-07-09 09:14] VITALS: O2SAT 90
== END 2021-07-09 12:37 | disposition home or self-care (01) | DRG 193 ==
LOC: EMEROOARM 14:59 → 3NENU 14:59
PROVIDERS: ADMIT General Practice; ATTEND General Practice

== ENCOUNTER 2021-09-24 14:11 | Observation (INO) ==
[2021-09-24] MEDS ORDERED: Naloxone 0.4 MG/ML INJ IVP PRN (17:03)
[2021-09-24] MEDS ORDERED: Melatonin 3 MG TABLET PO PRN (17:03)
[2021-09-24] MEDS ORDERED: *HR* OxyCODONE/APAP 5/325 TABLET PO ONE (17:03)
[2021-09-24] MEDS ORDERED: Ondansetron 4 MG/2 ML VIAL IVP PRN (17:03)
[2021-09-24] MEDS ORDERED: *HR* Dextrose 50 % in Water (Syg) 50 ML SYRINGE IVP PRN (17:09)
[2021-09-24] MEDS ORDERED: D5% in Water 1,000 ML IVC PRN (17:09)
[2021-09-24] MEDS ORDERED: Dextrose 4 GM Chewable Tablets PO PRN ×2 (17:09)
[2021-09-24] MEDS: Furosemide 40 MG TABLET PO SCH (18:43)
[2021-09-24] MEDS: Insulin LISPRO 300 UNITS/3 ML VIAL SUBQ SCH ×2 (18:43→21:59)
[2021-09-24] MEDS: Gabapentin 300 MG CAPSULE PO SCH (22:09)
[2021-09-25 04:46] LABS: Basophils % 0.5 %; Eosinophils # 0.1 K/mcL (0.0-0.6); Eosinophils % 1.1 %; Hematocrit 23.4 % (35.3-44.9); Immature Granulocytes % 0.2 % (0-4); Lymphocytes # 1.5 K/mcL (0.6-4.6); Lymphocytes % 27.5 %; Mean Corpuscular HGB Conc 30.8 g/dL (31.6-35.5); Mean Corpuscular Hemoglobin 27.1 pg (28.0-33.3); Mean Platelet Volume 10.7 fL (9.4-12.4); Monocytes # 0.6 K/mcL (0.0-1.3); Monocytes % 11.7 %; Neutrophils # 3.2 K/mcL (1.6-8.9); Platelet Count 166 K/mcL (140-400); Red Blood Count 2.66 M/mcL (3.82-4.97); Red Cell Distribution Width 16.4 % (11.5-14.5); White Blood Count 5.5 K/mcL (4.3-11.1)
[2021-09-25 04:52] LABS: Hemoglobin 7.2 g/dL (11.5-15.4)
[2021-09-25 04:57] LABS: INR 1.3
[2021-09-25 05:05] LABS: Calcium 8.5 mg/dL (8.6-10.3); Magnesium 1.8 mg/dL (1.6-2.6); Potassium 4.5 mEq/L (3.5-5.1)
[2021-09-25 06:12] LABS: Hematocrit 25.2 % (35.3-44.9); Hemoglobin 7.4 g/dL (11.5-15.4)
[2021-09-25] MEDS: Gabapentin 300 MG CAPSULE PO SCH ×3 (08:32→22:14)
[2021-09-25] MEDS: Furosemide 40 MG TABLET PO SCH ×2 (08:32→18:06)
[2021-09-25] MEDS: Metoprolol XL (24 HR) Succ 25 MG TAB.ER.24H PO SCH (08:32)
[2021-09-25] MEDS: Insulin LISPRO 300 UNITS/3 ML VIAL SUBQ SCH ×4 (10:45→22:14)
[2021-09-25] MEDS ORDERED: 0.9 % Sodium Chloride 500 ML ONE (12:11)
[2021-09-25 16:35] LABS: Hematocrit 26.8 % (35.3-44.9); Hemoglobin 8.5 g/dL (11.5-15.4)
[2021-09-25] MEDS: Acetaminophen 325 MG TABLET PO PRN (18:06)
[2021-09-25] MEDS: Cyanocobalamin (B-12) 1,000 MCG TABLET PO SCH (18:46)
[2021-09-25] MEDS: Magnesium Oxide 400 MG TABLET PO SCH (18:46)
[2021-09-25] MEDS: amLODIPine 5 MG TABLET PO SCH (18:46)
[2021-09-25] MEDS: Aspirin Enteric Coated 81 MG Tablet PO SCH (18:46)
[2021-09-25] MEDS: Sucralfate 1 GM TABLET PO SCH (22:14)
[2021-09-25] MEDS: Insulin DETEMIR 100 UNIT/ML X5UNITS SUBQ SCH (22:14)
[2021-09-26] MEDS: Acetaminophen 325 MG TABLET PO PRN ×2 (00:11→09:00)
[2021-09-26] MEDS: Sucralfate 1 GM TABLET PO SCH ×4 (08:48→22:37)
[2021-09-26] MEDS: Aspirin Enteric Coated 81 MG Tablet PO SCH (08:48)
[2021-09-26] MEDS: Furosemide 40 MG TABLET PO SCH ×2 (08:49→17:14)
[2021-09-26] MEDS: amLODIPine 5 MG TABLET PO SCH (08:49)
[2021-09-26] MEDS: PARoxetine 10 MG TABLET PO SCH (08:49)
[2021-09-26] MEDS: Metoprolol XL (24 HR) Succ 25 MG TAB.ER.24H PO SCH (08:49)
[2021-09-26] MEDS: Loratadine 10 MG TABLET PO SCH (08:49)
[2021-09-26] MEDS: Gabapentin 300 MG CAPSULE PO SCH ×3 (08:49→22:36)
[2021-09-26] MEDS: Cyanocobalamin (B-12) 1,000 MCG TABLET PO SCH (08:49)
[2021-09-26] MEDS: *HR* Amiodarone 200 MG TABLET PO SCH (08:49)
[2021-09-26] MEDS: Magnesium Oxide 400 MG TABLET PO SCH (08:49)
[2021-09-26] MEDS: Insulin LISPRO 300 UNITS/3 ML VIAL SUBQ SCH ×4 (08:56→22:23)
[2021-09-26 10:08] LABS: Hematocrit 26.2 % (35.3-44.9); Hemoglobin 8.2 g/dL (11.5-15.4)
[2021-09-26] MEDS: Iron Sucrose Complex 200 MG in 0.9 % Sodium Chloride 100 ML IVPB SCH (13:04)
[2021-09-26] MEDS: Insulin DETEMIR 100 UNIT/ML X5UNITS SUBQ SCH (22:37)
[2021-09-27 07:48] LABS: Hematocrit 24.9 % (35.3-44.9); Hemoglobin 7.8 g/dL (11.5-15.4)
[2021-09-27] MEDS: Insulin LISPRO 300 UNITS/3 ML VIAL SUBQ SCH ×4 (08:16→19:41)
[2021-09-27] MEDS: amLODIPine 5 MG TABLET PO SCH (08:18)
[2021-09-27] MEDS: Sucralfate 1 GM TABLET PO SCH ×4 (08:18→21:32)
[2021-09-27] MEDS: Magnesium Oxide 400 MG TABLET PO SCH (08:19)
[2021-09-27] MEDS: Aspirin Enteric Coated 81 MG Tablet PO SCH (08:19)
[2021-09-27] MEDS: Gabapentin 300 MG CAPSULE PO SCH ×3 (08:19→22:24)
[2021-09-27] MEDS: Cyanocobalamin (B-12) 1,000 MCG TABLET PO SCH (08:19)
[2021-09-27] MEDS: Metoprolol XL (24 HR) Succ 25 MG TAB.ER.24H PO SCH (08:19)
[2021-09-27] MEDS: *HR* Amiodarone 200 MG TABLET PO SCH (08:19)
[2021-09-27] MEDS: Furosemide 40 MG TABLET PO SCH (08:20)
[2021-09-27] MEDS: Loratadine 10 MG TABLET PO SCH (08:20)
[2021-09-27] MEDS: PARoxetine 10 MG TABLET PO SCH (08:46)
[2021-09-27] MEDS ORDERED: Cyanocobalamin (B-12) 1,000 MCG/ML VIAL SQ ONE (09:00)
[2021-09-27] MEDS: Iron Sucrose Complex 200 MG in 0.9 % Sodium Chloride 100 ML IVPB SCH (13:27)
[2021-09-27] MEDS: Insulin DETEMIR 100 UNIT/ML X5UNITS SUBQ SCH (21:32)
[2021-09-28] MEDS: Sucralfate 1 GM TABLET PO SCH ×4 (06:16→21:23)
[2021-09-28] MEDS ORDERED: Furosemide 40 MG/4 ML VIAL IVP ONE (07:16)
[2021-09-28] MEDS: Loratadine 10 MG TABLET PO SCH (07:26)
[2021-09-28] MEDS: Cyanocobalamin (B-12) 1,000 MCG TABLET PO SCH (07:26)
[2021-09-28] MEDS: *HR* Amiodarone 200 MG TABLET PO SCH (07:26)
[2021-09-28] MEDS: Aspirin Enteric Coated 81 MG Tablet PO SCH (07:26)
[2021-09-28] MEDS: Magnesium Oxide 400 MG TABLET PO SCH (07:26)
[2021-09-28] MEDS: PARoxetine 10 MG TABLET PO SCH (07:26)
[2021-09-28] MEDS: Gabapentin 300 MG CAPSULE PO SCH ×3 (07:26→21:23)
[2021-09-28] MEDS: amLODIPine 5 MG TABLET PO SCH (07:27)
[2021-09-28] MEDS: Metoprolol XL (24 HR) Succ 25 MG TAB.ER.24H PO SCH (07:27)
[2021-09-28 07:41] LABS: Basophils # 0.1 K/mcL (0.0-0.2); Basophils % 0.8 %; Eosinophils # 0.1 K/mcL (0.0-0.6); Eosinophils % 1.4 %; Hematocrit 26.1 % (35.3-44.9); Hemoglobin 8.1 g/dL (11.5-15.4); Immature Granulocytes % 0.8 % (0-4); Lymphocytes % 30.2 %; Mean Corpuscular Hemoglobin 27.5 pg (28.0-33.3); Mean Corpuscular Volume 88.5 fL (83.0-100.0); Mean Platelet Volume 11.3 fL (9.4-12.4); Monocytes # 0.7 K/mcL (0.0-1.3); Monocytes % 11.2 %; Neutrophils # 3.6 K/mcL (1.6-8.9); Nucleated Red Blood Cells 0.3 /100 WBC (0); Platelet Count 185 K/mcL (140-400); Red Blood Count 2.95 M/mcL (3.82-4.97); Red Cell Distribution Width 16.7 % (11.5-14.5); Segmented Neutrophils % 55.6 %; White Blood Count 6.5 K/mcL (4.3-11.1)
[2021-09-28] MEDS: Iron Sucrose Complex 200 MG in 0.9 % Sodium Chloride 100 ML IVPB SCH (08:38)
[2021-09-28] MEDS: Insulin LISPRO 300 UNITS/3 ML VIAL SUBQ SCH ×4 (08:38→21:34)
[2021-09-28 09:03] LABS: Calcium 8.5 mg/dL (8.6-10.3); Magnesium 1.6 mg/dL (1.6-2.6); Potassium 3.7 mEq/L (3.5-5.1); Thyroid Stimulating Hormone 4.31 mcIU/mL (0.340-5.600)
[2021-09-28 14:18] LABS: Estimated Average Glucose 200 mg/dl; Hemoglobin A1C 8.6 %
[2021-09-28] MEDS: Insulin DETEMIR 100 UNIT/ML X5UNITS SUBQ SCH (21:34)
[2021-09-29 07:06] LABS: Basophils # 0.1 K/mcL (0.0-0.2); Basophils % 0.8 %; Eosinophils # 0.1 K/mcL (0.0-0.6); Eosinophils % 1.9 %; Hematocrit 25.7 % (35.3-44.9); Immature Granulocytes % 0.6 % (0-4); Lymphocytes # 2.1 K/mcL (0.6-4.6); Lymphocytes % 33.3 %; Mean Corpuscular HGB Conc 31.1 g/dL (31.6-35.5); Mean Corpuscular Hemoglobin 28.3 pg (28.0-33.3); Mean Corpuscular Volume 90.8 fL (83.0-100.0); Mean Platelet Volume 11.3 fL (9.4-12.4); Monocytes # 0.8 K/mcL (0.0-1.3); Neutrophils # 3.2 K/mcL (1.6-8.9); Nucleated Red Blood Cells 0.8 /100 WBC (0); Platelet Count 185 K/mcL (140-400); Red Blood Count 2.83 M/mcL (3.82-4.97); Red Cell Distribution Width 17.3 % (11.5-14.5); Segmented Neutrophils % 50.4 %; White Blood Count 6.4 K/mcL (4.3-11.1)
[2021-09-29 07:58] LABS: Calcium 8.6 mg/dL (8.6-10.3); Magnesium 1.6 mg/dL (1.6-2.6); Potassium 3.8 mEq/L (3.5-5.1)
[2021-09-29] MEDS: Sucralfate 1 GM TABLET PO SCH ×2 (09:58→12:37)
[2021-09-29] MEDS: Insulin LISPRO 300 UNITS/3 ML VIAL SUBQ SCH ×2 (09:58→12:37)
[2021-09-29] MEDS: *HR* Amiodarone 200 MG TABLET PO SCH (09:59)
[2021-09-29] MEDS: Magnesium Oxide 400 MG TABLET PO SCH (09:59)
[2021-09-29] MEDS: amLODIPine 5 MG TABLET PO SCH (09:59)
[2021-09-29] MEDS: Gabapentin 300 MG CAPSULE PO SCH ×2 (09:59→15:02)
[2021-09-29] MEDS: PARoxetine 10 MG TABLET PO SCH (09:59)
[2021-09-29] MEDS: Cyanocobalamin (B-12) 1,000 MCG TABLET PO SCH (09:59)
[2021-09-29] MEDS: Aspirin Enteric Coated 81 MG Tablet PO SCH (09:59)
[2021-09-29] MEDS: Metoprolol XL (24 HR) Succ 25 MG TAB.ER.24H PO SCH (09:59)
[2021-09-29] MEDS: Loratadine 10 MG TABLET PO SCH (10:01)
[2021-09-29 14:59] VITALS: BP 134/63; PULSE 53; TEMP 98.2; O2SAT 93
== END 2021-09-29 16:46 | disposition other institution (70) ==
LOC: EMEROOARM 14:11 → 4WAOSI 14:11 → SUATTDRO 16:14 → 4WAOSI 17:40
PROVIDERS: ADMIT Internal Medicine; ATTEND Pharmacist